=== PATIENT | female | born 1935 | race Caucasian/White ===

== ENCOUNTER 2016-09-02 09:38 | Inpatient (IN) | payer OTHER, MEDICARE ==
[2016-09-02] VITALS (16 sets, daily range): BP systolic 85–175; BP diastolic 50–87; PULSE 55–93; RESP 18–26; TEMP 98.3–98.5; O2SAT 92–100
[~2016-09-02] VITALS: Ht 167.6 cm; Wt 57.6 kg
[2016-09-02] MEDS ORDERED: SUCCINYLCHOLINE CHLORIDE 200 MG/10 ML VIAL ONE (09:46)
[2016-09-02] MEDS ORDERED: ETOMIDATE 20 MG/10 ML VIAL ONE (09:46)
[2016-09-02] MEDS ORDERED: SODIUM CHLOR 0.9% 1000 ML INJ 1,000 ML IV SCH (09:59)
[2016-09-02] MEDS ORDERED: DILT-64 PO (10:00)
[2016-09-02] MEDS ORDERED: LISI-515 PO (10:00)
[2016-09-02] MEDS ORDERED: TRAM50TA PO (10:00)
[2016-09-02] MEDS ORDERED: LEVO88TA2 PO (10:00)
[2016-09-02] MEDS ORDERED: SODIUM CHLORIDE 0.9% FLUSH 5 ML FLUSH IVF PRN (10:00)
[2016-09-02] MEDS ORDERED: PROPOFOL 1000 MG/100 ML INJ 100 ML ONE (10:01)
[2016-09-02] MEDS ORDERED: PIPERACIL-TAZO 4.5 GM PREMIX 100 ML IV ONE (10:15)
[2016-09-02] MEDS ORDERED: VANCOMYCIN INJ 1,000 MG in SODIUM CHLOR 0.9% 250 ML INJ 250 ML IV ONE (10:15)
[2016-09-02] MEDS ORDERED: SUCCINYLCHOLINE CHLORIDE 200 MG/10 ML VIAL IV PUSH ONE (10:15)
[2016-09-02] MEDS ORDERED: ETOMIDATE 20 MG/10 ML VIAL IV PUSH ONE (10:15)
[2016-09-02] MEDS ORDERED: SODIUM CHLOR 0.9% 1000 ML INJ 1,000 ML IV ONE (10:15)
[2016-09-02] MEDS ORDERED: PROPOFOL 200 MG/20 ML AMP IV ONE (10:15)
--- NOTE | 2016-09-02 10:21 | PD ---
HPI Chief Complaint: Respiratory Distress Time Seen by Provider: 09:59 Travel History International Travel<30 days: No Contact w/Intl Traveler<30days: No Traveled to known affect area: No History of Present Illness HPI 81-year-old female came to the emergency room brought by family with history of altered mental status and respiratory distress. Patient is unable to give any meaningful history given her distress. She was brought in emergently from triage. Oxygen saturation was 85-86% on room air. As per her daughter patient last Wednesday fell and broke her right arm. She was taken to the [facility] emergency room where x-ray showed fractured humerus. She was discharged home with an arm sling and to follow up with orthopedist. Daughter has been trying to get an orthopedic follow-up but since last night she noticed that her mother has been confused with almost incoherent speech. She also noticed that she was struggling to breathe. Upon asking the daughter said the last time she saw her mother to be at her baseline mental status was sometime after midnight to 2 AM. Here patient was mostly nonverbal and upon calling her name loudly would look at you and then soon after her head would flop back and eyes rolled back. She seemed to be struggling to breathe. [employer] Past Medical History Narrative Medical List of her past medical history is reviewed from the nursing note. Cancer: Yes (KIDNEY) COPD: Yes Hypertension: Yes Tetanus Vaccination: > 5 Years Past Surgical History Gynecologic Surgery: Yes (HYST) Social History Alcohol Use: No Tobacco Use: Yes Allergies-Medications (Allergen,Severity, Reaction): Coded Allergies: Sulfa (Verified Allergy, Severe, 09/02/16) Comments List for allergies reviewed from the nursing note. Reported Meds & Prescriptions Reported Meds & Active Scripts Active Reported Tramadol (Tramadol HCl) 50 Mg Tab 50 Mg PO Q4H PRN Levothyroxine (Levothyroxine Sodium) 88 Mcg Tab 88 Mcg PO DAILY Lisinopril 20 Mg Tab 20 Mg PO DAILY Diltiazem CD 24 HR 240 Mg Caper 240 Mg PO DAILY Narrative Medication List of her home medications reviewed from the nursing note. Review of Systems Except as stated in HPI: all other systems reviewed are Neg Physical Exam Narrative GENERAL: Poorly responsive, elderly and frail, severe respiratory distress SKIN: Warm and dry. Extensive ecchymosis on the right upper extremity with swelling, bruising on the left side of the face and the baptism HEAD: Atraumatic. Normocephalic. EYES: Pupils equal and round. No scleral icterus. No injection or drainage. ENT: No nasal bleeding or discharge. Dry mucous membrane and coated tongue. NECK: Trachea midline. raised JVD on sitting position CARDIOVASCULAR: Regular rate and rhythm. No murmur appreciated. RESPIRATORY: Accessory muscles use for respiration, decreased air entry bilaterally GASTROINTESTINAL: Abdomen soft, non-tender, nondistended. Hepatic and splenic margins not palpable. MUSCULOSKELETAL: No obvious deformities. No clubbing. No cyanosis. No edema. NEUROLOGICAL: Poorly responsive, GCS of 10, nonverbal PSYCHIATRIC: Very anxious Data Data Last Documented VS Vital Signs Date Time Temp Pulse Resp B/P Pulse Ox O2 Delivery O2 Flow Rate FiO2 09/02/16 11:40 97 50 09/02/16 11:03 71 18 127/78 09/02/16 10:20 98.5 Orders Etomidate Inj (Amidate Inj) (09/02/16 09:46) Succinylcholine Inj (Quelicin Inj) (09/02/16 09:46) Electrocardiogram (09/02/16 09:59) Alcohol (Ethanol) (09/02/16 09:59) Ammonia (09/02/16 09:59) Complete Blood Count With Diff (09/02/16 09:59) Comprehensive Metabolic Panel (09/02/16 09:59) Creatine Kinase (Cpk) (09/02/16 09:59) Drug Screen, Random Urine (09/02/16 09:59) Prothrombin Time / Inr (Pt) (09/02/16 09:59) Troponin I (09/02/16 09:59) Thyroid Stimulating Hormone (09/02/16 09:59) Lactic Acid Sepsis Protocol (09/02/16 09:59) Urinalysis - C+S If Indicated (09/02/16 09:59) Arterial Blood Gas (Abg) (09/02/16 09:59) Blood Culture (09/02/16 09:59) Chest, Single Ap (09/02/16 09:59) Ct Brain W/O Iv Contrast(Rout) (09/02/16 09:59) Blood Glucose (09/02/16 09:59) Ecg Monitoring (09/02/16 09:59) Iv Access Insert/Monitor (09/02/16 09:59) Oximetry (09/02/16 09:59) Sodium Chloride 0.9% Flush (Ns Flush) (09/02/16 10:00) Sodium Chlor 0.9% 1000 Ml Inj (Ns 1000 M (09/02/16 09:59) I-Stat Profile (09/02/16 09:59) Propofol 1000 Mg/100 Ml Inj (Diprivan 10 (09/02/16 10:01) Sodium Chlor 0.9% 1000 Ml Inj (Ns 1000 M (09/02/16 10:15) Succinylcholine Inj (Quelicin Inj) (09/02/16 10:15) Etomidate Inj (Amidate Inj) (09/02/16 10:15) Piperacil-Tazo 4.5 Gm Premix (Zosyn 4.5 (09/02/16 10:15) Vancomycin Inj (Vancomycin Inj) (09/02/16 10:15) Propofol 1000 Mg/100 Ml Inj (Diprivan 10 (09/02/16 10:15) ^ Infusion (09/02/16 10:01) RASS (09/02/16 10:01) Neurological Rass Scale JOYA.Q2H (09/02/16 10:01) Ct Pulmonary Angiogram (09/02/16 ) Urinary Catheter Insert/Apply (09/02/16 10:01) Freddy-Gastric Tube Insert/Mon (09/02/16 10:01) Restraints Non-Violent JOYA.Q3H (09/02/16 10:01) Propofol 200 Mg/20 Ml Inj (Diprivan 200 (09/02/16 10:15) Urine Culture (09/02/16 10:00) CKMB (09/02/16 10:00) CKMB% (09/02/16 10:00) Humerus (Min 2vws) (09/02/16 ) Elbow, Limited (Ap&Lat) (09/02/16 ) Midazolam Inj (Versed Inj) (09/02/16 11:45) Admit Order (Ed Use Only) (09/02/16 11:51) Labs Laboratory Tests Test 09/02/16 09/02/16 10:00 10:45 Bedside Hemoglobin 14.3 G/DL Bedside Hematocrit 42.0 % Prothrombin Time 10.3 SEC Prothromb Time International 0.9 RATIO Ratio Bedside Sodium 134 MMOL/L Sodium Level 134 MEQ/L Bedside Potassium 4.2 MMOL/L Potassium Level 4.2 MEQ/L Bedside Chloride 99 MMOL/L Chloride Level 101 MEQ/L Carbon Dioxide Level 24.3 MEQ/L Anion Gap 9 MEQ/L Bedside Blood Urea Nitrogen 13 MG/DL Blood Urea Nitrogen 12 MG/DL Creatinine 0.85 MG/DL Estimat Glomerular Filtration 64 ML/MIN Rate Bedside Glucose 109 MG/DL Random Glucose 104 MG/DL Lactic Acid Level 1.4 mmol/L Calcium Level 8.6 MG/DL Total Bilirubin 0.5 MG/DL Aspartate Amino Transf 19 U/L (AST/SGOT) Alanine Aminotransferase 20 U/L (ALT/SGPT) Alkaline Phosphatase 75 U/L Ammonia LESS THAN 10 MCMOL/L Total Creatine Kinase 201 U/L Creatine Kinase MB 1.2 NG/ML Creatine Kinase MB % 0.6 % Troponin I LESS THAN 0.02 NG/ML Total Protein 7.0 GM/DL Albumin 2.8 GM/DL Thyroid Stimulating Hormone 1.280 uIU/ML 3rd Gen Urine Opiates Screen NEG Urine Barbiturates Screen NEG Urine Amphetamines Screen NEG Urine Benzodiazepines Screen NEG Urine Cocaine Screen NEG Urine Cannabinoids Screen NEG Ethyl Alcohol Level LESS THAN 3 MG/DL White Blood Count 14.1 TH/MM3 Red Blood Count 4.63 MIL/MM3 Hemoglobin 13.6 GM/DL Hematocrit 40.9 % Mean Corpuscular Volume 88.4 FL Mean Corpuscular Hemoglobin 29.4 PG Mean Corpuscular Hemoglobin 33.2 % Concent Red Cell Distribution Width 14.7 % Platelet Count 404 TH/MM3 Mean Platelet Volume 7.1 FL Neutrophils (%) (Auto) 81.5 % Lymphocytes (%) (Auto) 12.2 % Monocytes (%) (Auto) 6.1 % Eosinophils (%) (Auto) 0.1 % Basophils (%) (Auto) 0.1 % Neutrophils # (Auto) 11.5 TH/MM3 Lymphocytes # (Auto) 1.7 TH/MM3 Monocytes # (Auto) 0.9 TH/MM3 Eosinophils # (Auto) 0.0 TH/MM3 Basophils # (Auto) 0.0 TH/MM3 CBC Comment DIFF FINAL Differential Comment Urine Color YELLOW Urine Turbidity CLOUDY Urine pH 6.0 Urine Specific Kerby 1.018 Urine Protein 100 mg/dL Urine Glucose (UA) NEG mg/dL Urine Ketones NEG mg/dL Urine Occult Blood MOD Urine Nitrite POS Urine Bilirubin NEG Urine Urobilinogen LESS THAN 2.0 MG/DL Urine Leukocyte Esterase SMALL Urine RBC 5 /hpf Urine WBC 59 /hpf Urine Squamous Epithelial 1 /hpf Cells Urine Bacteria MOD /hpf Urine Mucus FEW /lpf Microscopic Urinalysis Comment CATH-CULTURE IND Blood Gas Puncture Site LT BRACHIAL Blood Gas Patient Temperature 98.6 Blood Gas HCO3 20 mmol/L Blood Gas Base Excess -5.0 mmol/L Blood Gas Oxygen Saturation 96 % Arterial Blood pH 7.33 Arterial Blood Partial 39 mmHg Pressure CO2 Arterial Blood Partial 442 mmHG Pressure O2 Arterial Blood Oxygen Content 17.2 Vol % Arterial Blood 2.5 % Carboxyhemoglobin Arterial Blood Methemoglobin 1.8 % Blood Gas Hemoglobin 12.0 G/DL Oxygen Delivery Device VENTILATOR Blood Gas Ventilator Setting AC/R18/VT500/PEEP5 Blood Gas Inspired Oxygen 100 % MDM Medical Decision Making Medical Screen Exam Complete: Yes Emergency Medical Condition: Yes Medical Record Reviewed: Yes Interpretation(s) Twelve-lead EKG was reviewed by me. Normal sinus rhythm, left bundle branch block, left axis deviation, first-degree AV block. Heart rate of 60 bpm. Differential Diagnosis PE, congestive heart failure, pneumonia, intracranial bleed Narrative Course 11:21 AM soon after quickly assessing the patient it was realized by me that patient needed her airway to be protected since she was ventilating and oxygenating poorly. Also her GCS was suboptimal. Discussed this with the daughter as well as son who was present in the room and they agreed with intubation. After patient was intubated I ordered IV Zosyn and vancomycin to cover for possible sepsis. She was given 2 L of IV fluid bolus. Soon after being on sedation her blood pressure dropped significantly to 58 systolic. Propofol was stopped as sedation and with fluid pressure slowly started to come up. Blood test results of back and shows some leukocytosis. Urine is positive for UTI. I'm currently waiting for CT and chest x-ray. Blood gas was drawn and looks adequate from oxygenation standpoint. However there is slight metabolic acidosis. Patient obviously will require admission. As soon as the CT scans ordered resulted line palletizer will be called. 11:53 AM patient is currently in CT. Awaiting for the CT head and CT pulmonary angiogram to be done and resulted. X-ray of the chest show tubes in good position. Critical Care Narrative Aggregate critical care time was 60 minutes. Time to perform other separately billable procedures was not included in the critical care time. My time did not include minutes spent treating any other patients simultaneously or on activities that did not directly contribute to the patient's treatment. The services I provided to this patient were to treat and/or prevent clinically significant deterioration that could result in: Respiratory failure, altered mental status, sepsis, ventilator management I provided critical care services requiring my management, as noted below: Chart data review, documentation time, medication orders and management, vital sign assessments/reviewing monitor data, ordering and reviewing lab tests, ordering and interpreting/reviewing x-rays and diagnostic studies, care of the patient and discussion of the patient with the admitting physicians. Procedures Procedure Narrative After the risks and benefits were discussed the following procedure was performed: INTUBATION: The patient was put in optimal position for the procedure. Rapid sequence intubation was initiated by me using 20 milligrams of etomidate IV and 100 milligrams of succinylcholine IV. The patient was intubated with a 7.5 cuffed endotracheal tube. Tube placement was confirmed by visualization of the tube and balloon passing through the cords, capnometry and subsequent chest x-ray. Breath sounds were equal and well aerated bilaterally postintubation. No breath sounds over stomach. Patient tolerated procedure well. Right EJ access: Patient's blood pressure dropped and there wasn't enough IV access. I put an 18-gauge Angiocath into the left EJ after the skin was prepped with alcohol and patient was on Trendelenburg position. It was successful on first attempt. EKG Prior to Arrival: No Physician Communication Physician Communication Dr. Louise Diagnosis Primary Impression: Altered mental status Qualified Code: R41.0 - Delirium Additional Impressions: Sepsis Qualified Code: A41.9 - Sepsis, due to unspecified organism UTI (urinary tract infection) Qualified Code: N39.0 - Urinary tract infection without hematuria, site unspecified Humerus fracture Qualified Code: S42.301A - Closed fracture of shaft of right humerus, unspecified fracture morphology, initial encounter Respiratory failure Qualified Code: J96.01 - Acute respiratory failure with hypoxia Admitting Information Admitting Physician Requests: Deven Yip MD Sep 02, 2016 10:21
[2016-09-02 10:27] LABS: I-STAT POTASSIUM 4.2 MMOL/L (3.5-4.9); I-STAT SODIUM 134 MMOL/L (138-146)
[2016-09-02 10:30] LABS: AUTOMATED NEUTROPHIL # 11.5 TH/MM3 (1.8-7.7); BASOPHIL % 0.1 % (0.0-2.0); EOSINOPHIL % 0.1 % (0.0-4.0); HEMATOCRIT 40.9 % (35.0-46.0); HEMO FLAGS DIFF FINAL; LYMPH % 12.2 % (9.0-44.0); LYMPHOCYTE # 1.7 TH/MM3 (1.0-4.8); MEAN CELL VOLUME 88.4 FL (80.0-100.0); MEAN CORPUSCULAR HEMOGLOBIN 29.4 PG (27.0-34.0); MEAN CORPUSCULAR HGB CONC 33.2 % (32.0-36.0); MONO % 6.1 % (0.0-8.0); NEUT % 81.5 % (16.0-70.0); PLATELET COUNT 404 TH/MM3 (150-450); RED BLOOD COUNT 4.63 MIL/MM3 (4.00-5.30); RED CELL DISTRIBUTION WIDTH 14.7 % (11.6-17.2); WHITE BLOOD COUNT 14.1 TH/MM3 (4.0-11.0)
[2016-09-02 10:39] LABS: BACTERIA, URINE MOD /hpf; BLOOD, URINE MOD (NEG); COMMENT (UR) CATH-CULTURE IND; CULTURE IF INDICATED CATH CULTURE IND; GLUCOSE,URINE NEG (NEG); KETONE, URINE NEG (NEG); MUCUS URINE FEW /lpf (OCC); SQUAMOUS EPITHELIAL CELL URINE 1 /hpf (0-5); URINE COLOR YELLOW (YELLW/STRAW)
[2016-09-02 10:40] LABS: NITRITE,URINE POS (NEG)
[2016-09-02 10:42] LABS: ALT (GPT) 20 U/L (10-53); ANION GAP 9 MEQ/L (5-15); AST (GOT) 19 U/L (15-37); BICARBONATE 24.3 MEQ/L (21.0-32.0); BLOOD UREA NITROGEN 12 MG/DL (7-18); CHLORIDE 101 MEQ/L (98-107); GLOMERULAR FILTRATION RATE 64 ML/MIN (>89); POTASSIUM 4.2 MEQ/L (3.5-5.1); SODIUM (NA) 134 MEQ/L (136-145)
[2016-09-02 10:43] LABS: INTERNATIONAL NORMALIZED RATIO 0.9 RATIO; PROTHROMBIN TIME - PATIENT 10.3 SEC (9.8-11.6)
[2016-09-02 10:52] LABS: ALKALINE PHOSPHATASE 75 U/L (45-117); CREATINE KINASE 201 U/L (26-192); TOTAL BILIRUBIN ADULT 0.5 MG/DL (0.2-1.0)
[2016-09-02 10:56] LABS: AMPHETAMINE, URINE NEG (NEG); BARBITURATES, URINE NEG (NEG); COCAINE, URINE NEG (NEG)
[2016-09-02 11:04] LABS: CKMB 1.2 NG/ML (0.5-3.6)
[2016-09-02 11:11] LABS: BLOOD GAS CARBOXYHEMOGLOBIN 2.5 % (0-4); BLOOD GAS HCO3 20 mmol/L (22-26); BLOOD GAS METHEMOGLOBIN 1.8 % (0-2); BLOOD GAS O2 HGB SATURATION 96 % (90-100); BLOOD GAS OXYGEN CONTENT 17.2 Vol % (12.0-20.0); BLOOD GAS PCO2 39 mmHg (38-42); BLOOD GAS PO2 442 mmHG (61-120); CRITICAL VALUE NO; OXYGEN DEVICE VENTILATOR; TEMP CORR TO 98.6
[2016-09-02] MEDS: PROPOFOL 1000 MG/100 ML INJ 100 ML IV SCH ×2 (11:11→19:15)
[2016-09-02 11:12] LABS: DRAW SITE LT BRACHIAL; FIO2 100 %; NUMBER OF ARTERIAL PUNCTURES 1; ULNAR PULSE Y; VENT SETTINGS AC/R18/VT500/PEEP5
[2016-09-02 11:14] LABS: STAT YES
--- NOTE | 2016-09-02 11:34 | RADRPT ---
EXAM DATE/TIME: 09/02/2016 10:57 [facility] COMPARISON: No previous studies available for comparison. INDICATIONS : Short of breath and ET tube placement. MEDICAL HISTORY : Fx arm. SURGICAL HISTORY : None. ENCOUNTER: Initial ACUITY: 1 day PAIN SCORE: Non-responsive. LOCATION: Bilateral chest FINDINGS: A single view of the chest demonstrates the lungs to be symmetrically aerated without evidence of mas s, infiltrate or effusion. There is an endotracheal tube replaced which appears to be in good positio n. There is NG tube in stomach. There is hyperaeration of both lung miller. No definite pneumothorax is seen. The cardiomediastinal contours are unremarkable. Osseous structures are intact. CONCLUSION: 1. ET tube and NG tube in good position. 2. Hyperaeration of both lung miller with no acute pulmonary infiltrates. 3. No definite pneumothorax. Mushtaq Hernandez MD on September 02, 2016 at 11:31 Board Certified Radiologist. This report was verified electronically.
[2016-09-02] MEDS ORDERED: MIDAZOLAM HCL 2 MG/2 ML VIAL IV PUSH ONE (11:45)
[2016-09-02] MEDS ORDERED: IOHEXOL 350 MG/ML 10 ML VIAL (for RAD DIAG) IV ONE (12:15)
--- NOTE | 2016-09-02 12:17 | RADRPT ---
EXAM DATE/TIME: 09/02/2016 12:01 [facility] COMPARISON: No previous studies available for comparison. INDICATIONS : Altered mental status. RADIATION DOSE: 52.44 CTDIvol (mGy) MEDICAL HISTORY : Chronic obstructive pulmonary disease. Renal cell carcinoma. Hypertension. SURGICAL HISTORY : Hysterectomy. ENCOUNTER: Initial ACUITY: 1 day PAIN SCALE: Non-responsive LOCATION: cranial TECHNIQUE: Multiple contiguous axial images were obtained of the head. Using automated exposure control and adj ustment of the mA and/or kV according to patient size, radiation dose was kept as low as reasonably a chievable to obtain optimal diagnostic quality images. FINDINGS: CEREBRUM: The ventricles are normal for age. There is bilateral cortical atrophy and chronic white matter ramírez ges bilaterally characteristic for patient's age. No evidence of midline shift, mass lesion, hemorrha ge or acute infarction. No extra-axial fluid collections are seen. POSTERIOR FOSSA: The cerebellum and brainstem are intact. The 4th ventricle is midline. The cerebellopontine angle i s unremarkable. EXTRACRANIAL: The visualized portion of the orbits is intact. There is chronic sinus disease in the right maxillary sinus and ethmoid sinuses bilaterally. SKULL: The calvaria is intact. No evidence of skull fracture. CONCLUSION: 1. No focal or acute intracranial hemorrhage. 2. Bilateral cortical atrophy and chronic white matter changes. 3. Chronic sinus disease. Mushtaq Hernandez MD on September 02, 2016 at 12:14 Board Certified Radiologist. This report was verified electronically.
--- NOTE | 2016-09-02 12:29 | RADRPT ---
EXAM DATE/TIME: 09/02/2016 12:01 [facility] COMPARISON: No previous studies available for comparison. INDICATIONS : Respiratory distress. IV CONTRAST: 70 cc Omnipaque 350 (iohexol) IV RADIATION DOSE: 23.38 CTDIvol (mGy) MEDICAL HISTORY : Renal cell carcinoma. Hypertension. Chronic obstructive pulmonary disease. SURGICAL HISTORY : Hysterectomy. ENCOUNTER: Initial ACUITY: 1 day PAIN SCALE: Non-responsive LOCATION: chest TECHNIQUE: Volumetric scanning of the chest was performed using a pulmonary embolism protocol MIP images were re constructed. Using automated exposure control and adjustment of the mA and/or kV according to patien t size, radiation dose was kept as low as reasonably achievable to obtain optimal diagnostic quality images. FINDINGS: PULMONARY ARTERIES: No filling defects are seen in the pulmonary arteries through the segmental level. LUNGS: The lungs are hyperaerated bilaterally. A few small scattered interstitial infiltrates are seen in th e right lung. Otherwise, the lungs are grossly clear. PLEURAE: There is no pleural thickening or pleural effusion. MEDIASTINUM: There is good visualization of the great vessels of the middle mediastinum. No evidence of mediastin al or hilar adenopathy/mass. MUSCULOSKELETAL: Within normal limits for patient age. MISCELLANEOUS: The visualized upper abdominal organs demonstrate no acute abnormality. Tiny stone in the left kidney nonobstructing. CONCLUSION: 1. No evidence of PE. 2. Hyperaeration of the lung miller suggestive of COPD. 3. A few small scattered interstitial infiltrates in the right lung. Mushtaq Hernandez MD on September 02, 2016 at 12:23 Board Certified Radiologist. This report was verified electronically.
--- NOTE | 2016-09-02 12:51 | RADRPT ---
EXAM DATE/TIME: 09/02/2016 12:29 [facility] COMPARISON: No previous studies available for comparison. INDICATIONS : Right elbow pain due to fall 3 day ago. MEDICAL HISTORY : Chronic obstructive pulmonary disease. Renal cell carcinoma. Hypertension. SURGICAL HISTORY : Hysterectomy. ENCOUNTER: Initial ACUITY: 1 day PAIN SCORE: Non-responsive. LOCATION: Right Elbow. FINDINGS: Two view examination of the right elbow demonstrates no , joint effusion, fracture or dislocation. B danette mineralization is normal. Suggestion of soft tissue swelling or prominent soft tissues distal arm and olecranon region CONCLUSION: No acute bony injury Richie Mtz MD on September 02, 2016 at 12:49 Board Certified Radiologist. This report was verified electronically.
--- NOTE | 2016-09-02 12:54 | RADRPT ---
EXAM DATE/TIME: 09/02/2016 12:25 [facility] COMPARISON: CT PULMONARY ANGIOGRAM, September 02, 2016, 12:01. CHEST SINGLE AP, September 02, 2016, 10:57. INDICATIONS : Right upper arm pain. MEDICAL HISTORY : Chronic obstructive pulmonary disease. Renal cell carcinoma. Hypertension. Right humerus fractur. SURGICAL HISTORY : Hysterectomy. ENCOUNTER: Initial ACUITY: 1 day PAIN SCORE: Non-responsive. LOCATION: Right Humerus. FINDINGS: There is a fracture of subcapital and extending into the humeral head and comminuted without dislocat ion. Remainder of exam negative CONCLUSION: Fracture subcapital and humeral head. Richie Mtz MD on September 02, 2016 at 12:50 Board Certified Radiologist. This report was verified electronically.
[2016-09-02] MEDS ORDERED: MISCELLANEOUS NURSING INFORMATION XX SCH (13:00)
[2016-09-02] MEDS: INSULIN NovoLIN REGULAR SUPPLEMENTAL SCALE SQ SCH ×3 (13:00→23:43)
[2016-09-02] MEDS ORDERED: GLUCAGON 1 MG/ML VIAL OTHER PRN (13:00)
[2016-09-02] MEDS ORDERED: CHLORHEXIDINE GLUCONATE 2 % 1 PACK (2 CLOTHS) TOP PRN (13:00)
[2016-09-02] MEDS ORDERED: DEXTROSE 50% IN WATER 50 ML VIAL(D50) IV PUSH PRN (13:00)
--- NOTE | 2016-09-02 13:43 | MH ---
cc: MACO ZIEGLER M.D. DATE OF ADMISSION: 09/02/2016 DATE OF : 1935 HISTORY OF PRESENT ILLNESS The patient is an 81-year-old female with a past medical history of COPD, active smoker, hypertension and hypothyroidism. She presented to [facility] ED with her family for altered mental status and respiratory distress. According to the patient's daughter she fell last Wednesday and broke her right arm. She was taken to [facility] ED and was found to have a right humerus fracture. She was discharged home with an arm sling and advised to follow-up with an orthopedic surgeon. In addition the patient was taking tramadol one tablet every four hours as needed for pain for the past three days. The patient has been combative and agitated at home according to the daughter and when she arrived to the ED she was found to have an O2 saturation in the 80s on room in triage. She was intubated and placed on full mechanical ventilation. The patient was given etomidate and succinylcholine for intubation. A chest x-ray post intubation showed ET tube above the christianne, hyperaeration of both lungs with no acute pulmonary infiltrates. She also underwent a CT angiogram of the chest which showed no evidence of PE, however, it showed a few small scattered interstitial infiltrates in the right lung. The patient also had CT scan of the brain which showed no focal or acute intracranial hemorrhage. She received 2 liters of crystalloids in the ED in addition to vancomycin and Zosyn. Her laboratory data is significant for leukocytosis with a WBC of 14.1, however, the patient is afebrile. Lactic acid measured at 1.4 and her urinalysis was compatible with a UTI. She had 59 wbc's with moderate bacteria, positive nitrite and small leukocyte esterase. X-ray of her right humerus showed a subcapital and humeral head fracture. When seen the patient is sedated with Diprivan and on full mechanical ventilation. Current blood pressure is 119/54 with a pulse of 59. ABG post intubation showed a pH of 7.33, CO2 39, PAO2 442, bicarb 20, saturation 96% on assist control ventilation with a respiratory rate of 18, tidal volume 500, PEEP of 5, FIO2 100%. PAST MEDICAL HISTORY 1. COPD. 2. Hypertension. 3. Hypothyroidism. PAST SURGICAL HISTORY Previous hysterectomy. SOCIAL HISTORY Active smoker, non-drinker. Lives with her daughter. FAMILY HISTORY Noncontributory. ALLERGIES SULFA. MEDICATIONS Reported medications: 1. Tramadol. 2. Levothyroxine. 3. Lisinopril. 4. Diltiazem. REVIEW OF SYSTEMS As per HPI. The rest of the review of systems is limited as the patient is intubated. PHYSICAL EXAMINATION GENERAL: An 81-year-old female, intubated for respiratory failure. VITAL SIGNS: Temperature 98.5, pulse 59, blood pressure 119/54, sats of 97%. Vent setting - assist control, rate of 18, tidal volume 500, PEEP of 5, FIO2 50%. HEENT: Atraumatic, normocephalic. Pupils equal and reactive to light and accommodation. Extraocular muscles intact. Conjunctiva pink. Non-icteric sclera. Oral mucosa within normal. Orally intubated. NECK: Supple. No JVD, adenopathy or thyromegaly. Trachea in the midline. CARDIOVASCULAR: Regular rate and rhythm. Normal S1, S2. No murmurs, rubs or gallops noted. PULMONARY: Bilateral equal entry diminished. No crackles or wheezing. ABDOMEN: Soft, nontender, no distension. Positive bowel sounds. EXTREMITIES: No cyanosis, clubbing or edema. SKIN: Extensive ecchymosis on the right upper extremity with edema and bruising on the left side of her face and jew area. NEUROLOGIC: Intubated and sedated with Diprivan. LABORATORY DATA Sodium 134, potassium 4.2, chloride 101, CO2 24, BUN 12, creatinine 0.85, glucose 104. Lactic acid 1.4. Total CK 201. Troponin less than 0.02. Ammonia less than 10. LFTs within normal. WBC 14.1, hemoglobin 13.6, hematocrit 40, platelet count 404. INR 0.9, PT 10.3. Urine drug screen negative for opiates, amphetamines, barbiturates. Alcohol level less than 3. Urinalysis is compatible with a UTI. RADIOGRAPHIC STUDIES A chest x-ray post intubation showed ET tube above the christianne, COPD changes, no obvious pulmonary infiltrates. CT angiogram of the chest showed no evidence of PE, small interstitial infiltrates. CT scan of the brain showed no acute intracranial findings. Humerus x-ray showed subcapital and humeral head fracture. IMPRESSION 1. Acute respiratory failure, requiring intubation. 2. Altered mental status. 3. Urinary tract infection. 4. Leukocytosis. 5. Right humerus fracture. 6. Status post fall. 7. Hypothyroidism. 8. COPD. 9. Hypertension. PLAN/RECOMMENDATIONS 1. Will place on fentanyl infusion for sedation and analgesia while intubated. Monitor neuro status closely. Neuro-checks per ICU protocol. CT scan of the brain showed no evidence of any acute intracranial findings. 2. Continue with vent support and maintain sats above 92%. 3. Bronchodilators in the form of DuoNeb q.6h. Will initiate ICU vent bundle and start on Solu-Medrol 40 mg IV q.8h. 4. Monitor heart rate and blood pressure closely and maintain MAP greater than 65 mmHg. Lactic acid level measured at 1.4. Hold antihypertensive meds. 5. Monitor renal function, I's and O's, and electrolyte replacement per protocol. Place on IV fluids in the form of D5 NS at 84 mL an hour. 6. Protonix 40 mg IV daily for GI prophylaxis. Will start nutrition support within the next 24 hours if remains intubated. 7. Continue with antibiotics in the form of Zosyn and monitor for signs of infection which include fever and WBC. Follow-up on blood and urine cultures. Will obtain a sputum culture with Gram stain. Of note the patient received one dose of vancomycin and Zosyn in the ED. Monitor CBC. 8. Consult orthopedic surgery regarding the right humerus fracture. 9. Place on sliding scale insulin with Accu-Cheks q.6h. for glycemic control as the patient will be on IV steroids. 10. Continue with Synthroid 88 mcg daily, her home dose. TSH measured at 1.28. 11. GI prophylaxis with Protonix 40 mg daily and DVT prophylaxis with SCDs. Will hold off on chemical anticoagulation prophylaxis for now given the extensive ecchymosis of her right upper extremity. 12. Further recommendations will be based on the hospital course. Critical care time 60 minutes excluding procedures. MD PATTY Fulton/RAINA /1:07 PM /1:24 PM
[2016-09-02] MEDS: DEXT 5%-NACL 0.9% 1000 ML INJ 1,000 ML IV SCH ×2 (13:51→23:43)
[2016-09-02] MEDS: PANTOPRAZOLE SODIUM 40 MG VIAL IV SCH (13:51)
[2016-09-02] MEDS: fentaNYL DRIP 250 ML IV SCH (14:02)
[2016-09-02] MEDS: RESP: ALBUTEROL 2.5 MG/IPRATROPIUM 0.5 MG NEB (SCH) INH ×3 (14:02→20:29)
[2016-09-02] MEDS: methylPREDNISolone SOD SUCC 40 MG/1 ML VIAL IV PUSH SCH ×2 (14:09→22:52)
[2016-09-02] MEDS: PIPERACIL-TAZO 3.375 GM PREMIX 50 ML IV SCH ×2 (18:26→22:52)
--- NOTE | 2016-09-02 23:00 | EKG ---
Date Performed: 09/02/2016 Time Performed: 10:54:39 PTAGE: 81 years EKG: Sinus rhythm WITH FIRST DEGREE AV BLOCK MARKED LEFT AXIS DEVIATION INTRAVENTRICULAR CONDUCTION DELAY POSSIBLE ANT ERIOR MYOCARDIAL INFARCTION ABNORMAL ECG NO PREVIOUS TRACING DOCTOR: Jo Forrest Interpretating Date/Time 09/02/2016 22:59:18
[2016-09-02] MEDS: CHLORHEXIDINE GLUCONATE 2 % 1 PACK (2 CLOTHS) TOP SCH (23:43)
[2016-09-03] VITALS (19 sets, daily range): BP systolic 96–144; BP diastolic 48–65; PULSE 47–78; RESP 18–19; TEMP 96.8–99; O2SAT 95–100
[2016-09-03] MEDS: RESP: ALBUTEROL 2.5 MG/IPRATROPIUM 0.5 MG NEB (SCH) INH ×4 (03:33→20:24)
[2016-09-03] MEDS: LORazepam 2 MG/ML VIAL IV PRN (03:44)
[2016-09-03 04:07] LABS: AUTOMATED NEUTROPHIL # 11.6 TH/MM3 (1.8-7.7); BASOPHIL % 0.1 % (0.0-2.0); HEMATOCRIT 34.5 % (35.0-46.0); HEMO FLAGS DIFF FINAL; LYMPH % 7.6 % (9.0-44.0); MEAN CELL VOLUME 88.7 FL (80.0-100.0); MEAN CORPUSCULAR HEMOGLOBIN 28.5 PG (27.0-34.0); MEAN CORPUSCULAR HGB CONC 32.1 % (32.0-36.0); MONO % 2.4 % (0.0-8.0); NEUT % 89.9 % (16.0-70.0); PLATELET COUNT 338 TH/MM3 (150-450); RED BLOOD COUNT 3.89 MIL/MM3 (4.00-5.30); RED CELL DISTRIBUTION WIDTH 14.7 % (11.6-17.2); WHITE BLOOD COUNT 12.9 TH/MM3 (4.0-11.0)
[2016-09-03 04:35] LABS: BICARBONATE 22.3 MEQ/L (21.0-32.0); MAGNESIUM 1.8 MG/DL (1.5-2.5)
[2016-09-03] MEDS: PIPERACIL-TAZO 3.375 GM PREMIX 50 ML IV SCH ×4 (05:13→21:41)
[2016-09-03] MEDS: methylPREDNISolone SOD SUCC 40 MG/1 ML VIAL IV PUSH SCH ×3 (05:13→21:41)
[2016-09-03] MEDS: LEVOTHYROXINE SODIUM 88 MCG TAB PO SCH (05:13)
[2016-09-03] MEDS: INSULIN NovoLIN REGULAR SUPPLEMENTAL SCALE SQ SCH ×3 (05:14→17:25)
[2016-09-03] MEDS: PANTOPRAZOLE SODIUM 40 MG VIAL IV SCH (08:09)
--- NOTE | 2016-09-03 08:34 | HHI.CCPN ---
Subjective Remarks/Hospital Course The patient is an 81-year-old female with a past medical history of COPD, active smoker, hypertension and hypothyroidism. She presented to [facility] ED with her family for altered mental status and respiratory distress. According to the patient's daughter she fell last Wednesday and broke her right arm. She was taken to [facility] ED and was found to have a right humerus fracture. She was discharged home with an arm sling and advised to follow-up with an orthopedic surgeon. In addition the patient was taking tramadol one tablet every four hours as needed for pain for the past three days. The patient has been combative and agitated at home according to the daughter and when she arrived to the ED she was found to have an O2 saturation in the 80s on room in triage. She was intubated and placed on full mechanical ventilation. The patient was given etomidate and succinylcholine for intubation. A chest x-ray post intubation showed ET tube above the christianne, hyperaeration of both lungs with no acute pulmonary infiltrates. She also underwent a CT angiogram of the chest which showed no evidence of PE, however, it showed a few small scattered interstitial infiltrates in the right lung. The patient also had CT scan of the brain which showed no focal or acute intracranial hemorrhage. She received 2 liters of crystalloids in the ED in addition to vancomycin and Zosyn. Her laboratory data is significant for leukocytosis with a WBC of 14.1, however, the patient is afebrile. Lactic acid measured at 1.4 and her urinalysis was compatible with a UTI. She had 59 wbc's with moderate bacteria, positive nitrite and small leukocyte esterase. X-ray of her right humerus showed a subcapital and humeral head fracture. When seen the patient is sedated with Diprivan and on full mechanical ventilation. Current blood pressure is 119 /54 with a pulse of 59. ABG post intubation showed a pH of 7.33, CO2 39, PAO2 442, bicarb 20, saturation 96% on assist control ventilation with a respiratory rate of 18, tidal volume 500, PEEP of 5, FIO2 100%. 09/03 No acute events overnight. Sedated with Fentanyl and intubated. Objective Vital Signs Date Time Temp Pulse Resp B/P Pulse Ox O2 Delivery O2 Flow Rate FiO2 09/03/16 06:00 63 12/29/16 04:09 100 45 09/03/16 04:00 99.0 18 107/53 09/02/16 12:50 Ventilator Intake and Output 09/02/16 09/02/16 09/03/16 08:00 16:00 00:00 Intake Total 2000 ml 818 ml Output Total 300 ml Balance 2000 ml 518 ml Result Diagram: 09/03/16 0340 09/03/16 0340 Other Results Laboratory Tests Test 09/02/16 09/02/16 09/02/16 09/03/16 10:00 10:45 19:40 03:40 White Blood Count 14.1 TH/MM3 12.9 TH/MM3 Red Blood Count 4.63 MIL/MM3 3.89 MIL/MM3 Hemoglobin 13.6 GM/DL 11.1 GM/DL Bedside Hemoglobin 14.3 G/DL Hematocrit 40.9 % 34.5 % Bedside Hematocrit 42.0 % Mean Corpuscular Volume 88.4 FL 88.7 FL Mean Corpuscular Hemoglobin 29.4 PG 28.5 PG Mean Corpuscular Hemoglobin 33.2 % 32.1 % Concent Red Cell Distribution Width 14.7 % 14.7 % Platelet Count 404 TH/MM3 338 TH/MM3 Mean Platelet Volume 7.1 FL 7.0 FL Neutrophils (%) (Auto) 81.5 % 89.9 % Lymphocytes (%) (Auto) 12.2 % 7.6 % Monocytes (%) (Auto) 6.1 % 2.4 % Eosinophils (%) (Auto) 0.1 % 0.0 % Basophils (%) (Auto) 0.1 % 0.1 % Neutrophils # (Auto) 11.5 TH/MM3 11.6 TH/MM3 Lymphocytes # (Auto) 1.7 TH/MM3 1.0 TH/MM3 Monocytes # (Auto) 0.9 TH/MM3 0.3 TH/MM3 Eosinophils # (Auto) 0.0 TH/MM3 0.0 TH/MM3 Basophils # (Auto) 0.0 TH/MM3 0.0 TH/MM3 CBC Comment DIFF FINAL DIFF FINAL Differential Comment Prothrombin Time 10.3 SEC Prothromb Time International 0.9 RATIO Ratio Urine Color YELLOW Urine Turbidity CLOUDY Urine pH 6.0 Urine Specific [place] 1.018 Urine Protein 100 mg/dL Urine Glucose (UA) NEG mg/dL Urine Ketones NEG mg/dL Urine Occult Blood MOD Urine Nitrite POS Urine Bilirubin NEG Urine Urobilinogen LESS THAN 2.0 MG/DL Urine Leukocyte Esterase SMALL Urine RBC 5 /hpf Urine WBC 59 /hpf Urine Squamous Epithelial 1 /hpf Cells Urine Bacteria MOD /hpf Urine Mucus FEW /lpf Microscopic Urinalysis Comment CATH-CULTURE IND Bedside Sodium 134 MMOL/L Sodium Level 134 MEQ/L 139 MEQ/L Bedside Potassium 4.2 MMOL/L Potassium Level 4.2 MEQ/L 4.0 MEQ/L Bedside Chloride 99 MMOL/L Chloride Level 101 MEQ/L 108 MEQ/L Carbon Dioxide Level 24.3 MEQ/L 22.3 MEQ/L Anion Gap 9 MEQ/L 9 MEQ/L Bedside Blood Urea Nitrogen 13 MG/DL Blood Urea Nitrogen 12 MG/DL 14 MG/DL Creatinine 0.85 MG/DL 0.92 MG/DL Estimat Glomerular Filtration 64 ML/MIN 58 ML/MIN Rate Bedside Glucose 109 MG/DL Random Glucose 104 MG/DL 166 MG/DL Lactic Acid Level 1.4 mmol/L Calcium Level 8.6 MG/DL 7.6 MG/DL Total Bilirubin 0.5 MG/DL Aspartate Amino Transf 19 U/L (AST/SGOT) Alanine Aminotransferase 20 U/L (ALT/SGPT) Alkaline Phosphatase 75 U/L Ammonia LESS THAN 10 MCMOL/L Total Creatine Kinase 201 U/L Creatine Kinase MB 1.2 NG/ML Creatine Kinase MB % 0.6 % Troponin I LESS THAN 0.02 NG/ML Total Protein 7.0 GM/DL Albumin 2.8 GM/DL Thyroid Stimulating Hormone 1.280 uIU/ML 3rd Gen Urine Opiates Screen NEG Urine Barbiturates Screen NEG Urine Amphetamines Screen NEG Urine Benzodiazepines Screen NEG Urine Cocaine Screen NEG Urine Cannabinoids Screen NEG Ethyl Alcohol Level LESS THAN 3 MG/DL Blood Gas Puncture Site LT BRACHIAL Blood Gas Patient Temperature 98.6 Blood Gas HCO3 20 mmol/L Blood Gas Base Excess -5.0 mmol/L Blood Gas Oxygen Saturation 96 % Arterial Blood pH 7.33 Arterial Blood Partial 39 mmHg Pressure CO2 Arterial Blood Partial 442 mmHG Pressure O2 Arterial Blood Oxygen Content 17.2 Vol % Arterial Blood 2.5 % Carboxyhemoglobin Arterial Blood Methemoglobin 1.8 % Blood Gas Hemoglobin 12.0 G/DL Oxygen Delivery Device VENTILATOR Blood Gas Ventilator Setting AC/R18/VT500/[id number] Blood Gas Inspired Oxygen 100 % Nasal Screen MRSA (PCR) NEGATIVE Phosphorus Level 2.3 MG/DL Magnesium Level 1.8 MG/DL Imaging Last Impressions Head CT 09/02/16 0959 Signed Impressions: Service Date/Time: Friday, September 02, 2016 12:01 - CONCLUSION: 1. No focal or acute intracranial hemorrhage. 2. Bilateral cortical atrophy and chronic white matter changes. 3. Chronic sinus disease. Mushtaq Hernandez MD Chest X-Ray 09/02/16 0959 Signed Impressions: Service Date/Time: Friday, September 02, 2016 10:57 - CONCLUSION: 1. ET tube and NG tube in good position. 2. Hyperaeration of both lung miller with no acute pulmonary infiltrates. 3. No definite pneumothorax. Mushtaq Hernandez MD Humerus X-Ray 09/02/16 0000 Signed Impressions: Service Date/Time: Friday, September 02, 2016 12:25 - CONCLUSION: Fracture subcapital and humeral head. Richie Mtz MD Elbow X-Ray 09/02/16 0000 Signed Impressions: Service Date/Time: Friday, September 02, 2016 12:29 - CONCLUSION: No acute bony injury Richie Mtz MD CT Angiography 09/02/16 0000 Signed Impressions: Service Date/Time: Friday, September 02, 2016 12:01 - CONCLUSION: 1. No evidence of PE. 2. Hyperaeration of the lung miller suggestive of COPD. 3. A few small scattered interstitial infiltrates in the right lung. Mushtaq Hernandez MD Objective Remarks GENERAL: Patient is 81 yo intubated and sedated. SKIN: Warm and dry. HEAD: Normocephalic. EYES: No scleral icterus. No injection or drainage. NECK: Supple, trachea midline. No JVD or lymphadenopathy. Orally intubated. CARDIOVASCULAR: Regular rate and rhythm without murmurs, gallops, or rubs. RESPIRATORY: Breath sounds equal bilaterally. No accessory muscle use. GASTROINTESTINAL: Abdomen soft, non-tender, nondistended. MUSCULOSKELETAL: No cyanosis, or edema. Neuro: Sedated. A/P Assessment and Plan 1. VDRF 2. Altered mental status. 3. Urinary tract infection. 4. Leukocytosis. 5. Right humerus fracture. 6. Status post fall. 7. Hypothyroidism. 8. COPD. 9. Hypertension. PLAN Neuro: On fentanyl infusion for sedation and analgesia while intubated. Daily sedation vacation. Monitor neuro status closely. CT brain showed no evidence of any acute intracranial findings. Pulm: Continue with vent support and maintain sats above 92%. Bronchodilators, Solu-Medrol 40 mg IV q.8h. ICU vent bundle, start CPAP trials as dorie CV: Monitor HR and BP and maintain MAP> 65 mmHg. Lactic acid level measured at 1.4. : Monitor renal function, I's and O's, and electrolyte replacement per protocol. Will need phos replacement today. d/c IVF GI: On Protonix 40 mg IV daily for GI prophylaxis. Start TF if remains intubated today. ID: Continue with abx(Zosyn) and monitor for signs of infection( fever and WBC) . WBC trending down. Heme: Monitor CBC. [place]: Orthopedic surgery consulted regarding right humerus fracture. Endo: SSI with Accu-Cheks q.6h. for glycemic control Continue with Synthroid 88 mcg daily. TSH: 1.28. GI prophylaxis with Protonix 40 mg daily and DVT prophylaxis with SCDs. Not on chemical anticoagulation prophylaxis for now given extensive ecchymosis of her right upper extremity. CCT 30 mins Karthik Cervantes MD Sep 03, 2016 08:33
[2016-09-03] MEDS ORDERED: MAGNESIUM SULFATE INJ 4 GM in SODIUM CHLORIDE 0.9% INJ 92 ML IV PRN (08:45)
[2016-09-03] MEDS ORDERED: POTASSIUM CHLOR 40 MEQ PREMIX 100 ML IV PRN ×2 (08:45)
[2016-09-03] MEDS ORDERED: SODIUM PHOSPHATE INJ 30 MMOL in SODIUM CHLOR 0.9% 250 ML INJ 240 ML IV PRN (08:45)
[2016-09-03] MEDS ORDERED: POTASSIUM PHOSPHATE MONOBASIC 500 MG TAB PO PRN (08:45)
[2016-09-03] MEDS ORDERED: POTASSIUM CHLOR 20 MEQ PREMIX 100 ML IV PRN (08:45)
[2016-09-03] MEDS ORDERED: POTASSIUM PHOSPHATE INJ 30 MMOL in SODIUM CHLOR 0.9% 250 ML INJ 250 ML IV PRN (08:45)
[2016-09-03] MEDS ORDERED: POTASSIUM CL 40 MEQ/30 ML LIQ UDC PO/TUBE PRN ×2 (08:45)
[2016-09-03] MEDS ORDERED: MAGNESIUM SULFATE INJ 2 GM in SODIUM CHLORIDE 0.9% INJ 96 ML IV PRN (08:45)
[2016-09-03] MEDS ORDERED: MAGNESIUM OXIDE 400 MG TAB PO PRN (08:45)
[2016-09-03] MEDS ORDERED: POTASSIUM PHOSPHATE MONOBASIC 500 MG TAB PO/TUBE PRN (08:45)
[2016-09-03 11:32] LABS: BLOOD GAS BASE EXCESS -6.6 mmol/L (-2-2); BLOOD GAS CARBOXYHEMOGLOBIN 1.1 % (0-4); BLOOD GAS HCO3 20 mmol/L (22-26); BLOOD GAS METHEMOGLOBIN 1.1 % (0-2); BLOOD GAS O2 HGB SATURATION 96 % (90-100); BLOOD GAS OXYGEN CONTENT 16.8 Vol % (12.0-20.0); BLOOD GAS PCO2 48 mmHg (38-42); BLOOD GAS PO2 119 mmHg (61-120); BLOOD GAS TOTAL HGB 12.4 G/DL (12.0-16.0); TEMP CORR TO 98.6
[2016-09-03 11:33] LABS: CRITICAL VALUE YES; DRAW SITE LT RADIAL; FIO2 40 %; NUMBER OF ARTERIAL PUNCTURES 1; OXYGEN DEVICE VENTILATOR; STAT NO; ULNAR PULSE PRESENT; VENT SETTINGS CPAP 5/10PS
[2016-09-03] MEDS ORDERED: BUMETANIDE INJ 1 MG/4 ML VIAL IV PUSH ONE (11:45)
--- NOTE | 2016-09-03 13:30 | RADRPT ---
EXAM DATE/TIME: 09/03/2016 12:40 [place] COMPARISON: HUMERUS RIGHT (MIN 2VWS), September 02, 2016, 12:25. INDICATIONS : Evaluate right shoulder fracture, fell MEDICAL HISTORY : None. Chronic obstructive pulmonary disease. Renal cell carcinoma. Hypertension. Right humerus fractur. SURGICAL HISTORY : Hysterectomy. ENCOUNTER: Initial ACUITY: 2 days PAIN SCORE: Non-responsive. LOCATION: Right Shoulder FINDINGS: Two view examination of the right shoulder demonstrates a displaced fracture through the neck of the proximal humerus. The head of the humerus appears to be either subluxed or dislocated posteriorly. Th e scapulas grossly intact. The clavicle is grossly intact. CONCLUSION: There is a displaced fracture through the neck of the proximal humerus. The humeral head is either gandhi bluxed or displaced posteriorly. If clinically indicated, a noncontrast CT scan of the right shoulder could be performed for further evaluation. Mushtaq Hernandez MD on September 03, 2016 at 13:26 Board Certified Radiologist. This report was verified electronically.
--- NOTE | 2016-09-03 17:16 | PD.CONS ---
HPI Service Urology Consult Requested By Reason for Consult Prolapse Primary Care Physician Omayra Bryant Diagnosis: History of Present Illness The patient is an 81-year-old female with a past medical history of COPD, active smoker, hypertension and hypothyroidism. She presented to [facility] ED with her family for altered mental status and respiratory distress. Patient fel last week and broke her right arm. Evaluated at [facility] witharm sling placed and ortho follow-up planned. Patient was found to be in respiratory distress and admited and intubated, currently on vent. She was found to have a prolapsed bladder and Urology was consulted. Patient intubated and sedated, history obtained from chart and nursing staff. UOP has been marginal. Review of Systems ROS Limitations: Clinical Condition Constitutional: DENIES: Fever Endocrine: DENIES: Abnorml menstrual pattern Eyes: DENIES: Blurred vision Ears, nose, mouth, throat: DENIES: Hearing loss Respiratory: COMPLAINS OF: Apneas Cardiovascular: DENIES: Chest pain Gastrointestinal: DENIES: Abdominal pain Genitourinary: DENIES: Hematuria, Dysuria Hematologic/lymphatic: DENIES: Bruising Immunologic/allergic: DENIES: Eczema Neurologic: DENIES: Headache Psychiatric: DENIES: Anxiety Past Family Social History Past Medical History HTN COPD Hyperlipidemia Past Surgical History No known surgeries Reported Medications Reported Meds & Active Scripts Active Reported Tramadol (Tramadol HCl) 50 Mg Tab 50 Mg PO Q4H PRN Levothyroxine (Levothyroxine Sodium) 88 Mcg Tab 88 Mcg PO DAILY Lisinopril 20 Mg Tab 20 Mg PO DAILY Diltiazem CD 24 HR 240 Mg Caper 240 Mg PO DAILY Allergies: Coded Allergies: Sulfa (Verified Allergy, Severe, 09/02/16) Active Ordered Medications Current Medications Medications (Trade) Dose Ordered Sig/Inga Route Start Time Stop Time Status Last Admin IV Flush 2 ml 2 ml UNSCH PRN IVF 09/02/16 10:00 (Diprivan 1000 Mg/100ml Inj) 100 ml @ 0 mls/hr TITRATE IV 09/02/16 10:15 09/02/16 19:15 (Protonix Inj) 40 mg DAILY IV 09/02/16 13:00 09/03/16 08:09 Miscellaneous Information 1 Q361D XX 09/02/16 13:00 09/03/16 12:29 (Chlorhexidine 2% Cloth) 3 pack Taper DAILY@04 TOP 09/03/16 04:00 08/30/17 03:59 09/02/16 23:43 Chlorhexidine Gluconate 3 pack 3 pack UNSCH PRN TOP 09/02/16 13:00 (fentaNYL DRIP) 250 ml @ 0 mls/hr TITRATE IV 09/02/16 13:00 09/02/16 14:02 (D50w (Vial) Inj) 25 ml UNSCH PRN IV PUSH 09/02/16 13:00 (Glucagon Inj) 1 mg UNSCH PRN OTHER 09/02/16 13:00 (NovoLIN R SUPPLEMENTAL SCALE) 1 Q6HR SQ 09/02/16 13:00 09/02/16 18:26 Methylprednisolone Sodium Succinate 40 mg 40 mg Q8HR IV PUSH 09/02/16 14:00 09/03/16 12:29 (Zosyn 3.375 Gm Premix) 50 ml @ 100 mls/hr Q6H IV 09/02/16 17:00 09/03/16 10:31 (Synthroid) 88 mcg DAILY@0600 PO 09/03/16 06:00 Lorazepam 2 mg 2 mg Q4H PRN IV 09/03/16 03:00 09/03/16 03:44 Potassium Chloride 100 ml @ 50 mls/hr Q2H PRN IV 09/03/16 08:45 (KCl 20 Meq Premix Inj) 100 ml @ 50 mls/hr Q2H PRN IV 09/03/16 08:45 Potassium Chloride 40 meq 40 meq UNSCH PRN PO/TUBE 09/03/16 08:45 Potassium Chloride 100 ml @ 25 mls/hr UNSCH PRN IV 09/03/16 08:45 Potassium Chloride 100 ml @ 50 mls/hr Q2H PRN IV 09/03/16 08:45 (Magnesium Sulfate Inj/NS Inj) 100 ml @ 50 mls/hr UNSCH PRN IV 09/03/16 08:45 Magnesium Oxide 800 mg 800 mg UNSCH PRN PO 09/03/16 08:45 (Magnesium Sulfate Inj/NS Inj) 100 ml @ 50 mls/hr UNSCH PRN IV 09/03/16 08:45 Potassium Phosphate 2000 mg 2,000 mg Q4H PRN PO 09/03/16 08:45 (Sodium Phosphate Inj/NS 250 ml Inj) 250 ml @ 42 mls/hr UNSCH PRN IV 09/03/16 08:45 09/03/16 10:31 (KCl 40 Meq/30 ml Liq) 40 meq UNSCH PRN PO/TUBE 09/03/16 08:45 Potassium Phosphate 2000 mg 2,000 mg UNSCH PRN PO/TUBE 09/03/16 08:45 (Potassium Phosphate Inj/NS 250 ml Inj) 260 ml @ 42 mls/hr UNSCH PRN IV 09/03/16 08:45 Family History Family history reviewed and noncontributory Social History Current smoker Physical Exam Vital Signs Vital Signs Date Time Temp Pulse Resp B/P Pulse Ox O2 Delivery O2 Flow Rate FiO2 09/03/16 16:03 100 40 09/03/16 16:00 97.6 71 18 129/63 100 09/03/16 16:00 71 09/03/16 14:06 100 40 09/03/16 14:00 72 09/03/16 12:00 78 09/03/16 12:00 98.1 78 18 97/48 96 09/03/16 10:50 100 40 09/03/16 10:20 100 40 09/03/16 08:00 47 09/03/16 08:00 97.6 47 18 131/59 100 09/03/16 06:00 63 09/03/16 04:09 100 45 09/03/16 04:00 67 09/03/16 04:00 99.0 67 18 107/53 99 09/03/16 02:00 70 09/03/16 01:46 100 45 09/03/16 00:00 70 09/03/16 00:00 98.0 70 18 96/52 100 09/02/16 23:21 99 50 09/02/16 22:00 68 09/02/16 20:33 96 50 09/02/16 20:00 98.4 68 18 115/87 93 09/02/16 20:00 68 09/02/16 19:00 98.3 93 18 85/50 93 09/02/16 18:27 64 18 121/58 97 30 Physical Exam GENERAL: This is a well-nourished, well-developed patient, Intubated and sedated SKIN: No rashes, ecchymoses or lesions. Cool and dry. HEAD: Atraumatic. Normocephalic. EYES: No scleral icterus. No injection or drainage. ENT: Nose without bleeding, purulent drainage NECK: Trachea midline. CARDIOVASCULAR: Regular rate and rhythm RESPIRATORY: Intubated and sedated. GASTROINTESTINAL: Abdomen soft, non-tender, nondistended. : Evidence of prolapse with large cystocele noted beyond the vaginal introitus. Normal external female genitalia MUSCULOSKELETAL: Extremities without clubbing, cyanosis, or edema. NEUROLOGICAL Motor and sensory grossly within normal limits. Laboratory Laboratory Tests Test 09/02/16 09/03/16 09/03/16 19:40 03:40 11:08 Nasal Screen MRSA (PCR) NEGATIVE White Blood Count 12.9 Red Blood Count 3.89 Hemoglobin 11.1 Hematocrit 34.5 Mean Corpuscular Volume 88.7 Mean Corpuscular Hemoglobin 28.5 Mean Corpuscular Hemoglobin 32.1 Concent Red Cell Distribution Width 14.7 Platelet Count 338 Mean Platelet Volume 7.0 Neutrophils (%) (Auto) 89.9 Lymphocytes (%) (Auto) 7.6 Monocytes (%) (Auto) 2.4 Eosinophils (%) (Auto) 0.0 Basophils (%) (Auto) 0.1 Neutrophils # (Auto) 11.6 Lymphocytes # (Auto) 1.0 Monocytes # (Auto) 0.3 Eosinophils # (Auto) 0.0 Basophils # (Auto) 0.0 CBC Comment DIFF FINAL Differential Comment Sodium Level 139 Potassium Level 4.0 Chloride Level 108 Carbon Dioxide Level 22.3 Anion Gap 9 Blood Urea Nitrogen 14 Creatinine 0.92 Estimat Glomerular Filtration 58 Rate Random Glucose 166 Calcium Level 7.6 Phosphorus Level 2.3 Magnesium Level 1.8 Blood Gas Puncture Site LT RADIAL Blood Gas Patient Temperature 98.6 Blood Gas HCO3 20 Blood Gas Base Excess -6.6 Blood Gas Oxygen Saturation 96 Arterial Blood pH 7.23 Arterial Blood Partial 48 Pressure CO2 Arterial Blood Partial 119 Pressure O2 Arterial Blood Oxygen Content 16.8 Arterial Blood 1.1 Carboxyhemoglobin Arterial Blood Methemoglobin 1.1 Blood Gas Hemoglobin 12.4 Oxygen Delivery Device VENTILATOR Blood Gas Ventilator Setting CPAP 5/10PS Blood Gas Inspired Oxygen 40 Date/Time Procedure Status Source Growth 09/02/16 10:00 Urine Culture - Preliminary Resulted Urine Clean Catch Gram Negative Nba 09/02/16 10:00 Aerobic Blood Culture - Preliminary Resulted Blood Peripheral NO GROWTH IN 1 DAY 12/28/16 10:00 Anaerobic Blood Culture - Preliminary Resulted Blood Peripheral NO GROWTH IN 1 DAY Result Diagram: 09/03/16 0340 09/03/16 0340 Imaging Last 72 hours Impressions Shoulder X-Ray 09/03/16 0000 Signed Impressions: Service Date/Time: August 12:40 - CONCLUSION: There is a displaced fracture through the neck of the proximal humerus. The humeral head is either subluxed or displaced posteriorly. If clinically indicated, a noncontrast CT scan of the right shoulder could be performed for further evaluation. Mushtaq Hernandez MD Head CT 09/02/16 0959 Signed Impressions: Service Date/Time: Friday, September 02, 2016 12:01 - CONCLUSION: 1. No focal or acute intracranial hemorrhage. 2. Bilateral cortical atrophy and chronic white matter changes. 3. Chronic sinus disease. Mushtaq Hernandez MD Chest X-Ray 09/02/1659 Signed Impressions: Service Date/Time: Friday, September 02, 2016 10:57 - CONCLUSION: 1. ET tube and NG tube in good position. 2. Hyperaeration of both lung miller with no acute pulmonary infiltrates. 3. No definite pneumothorax. Mushtaq Hernandez MD Humerus X-Ray 09/02/16 0000 Signed Impressions: Service Date/Time: Friday, September 02, 2016 12:25 - CONCLUSION: Fracture subcapital and humeral head. Richie Mtz MD Elbow X-Ray 09/02/16 0000 Signed Impressions: Service Date/Time: Friday, September 02, 2016 12:29 - CONCLUSION: No acute bony injury Richie Mtz MD CT Angiography 09/02/16 0000 Signed Impressions: Service Date/Time: Friday, September 02, 2016 12:01 - CONCLUSION: 1. No evidence of PE. 2. Hyperaeration of the lung miller suggestive of COPD. 3. A few small scattered interstitial infiltrates in the right lung. Mushtaq Hernandez MD Assessment and Plan Problem List: (1) UTI (urinary tract infection) ICD Code: N39.0 Status: Acute Assessment and Plan -Significant pelvic organ prolapse -No surgical intervention indicated given patient current clinical condition -Patient may benefit from a pessary to aid in lifting the pelvic organs -Unlikely any intervention while inpatient given her clinical status, however OB /DIRECTOR AMBULATORY consultation or follow-up is recommended -Please call with questions Problem Qualifiers (1) UTI (urinary tract infection): Qualified Code: N39.0 - Urinary tract infection without hematuria, site unspecified Renzo Felder MD Sep 03, 2016 17:15
[2016-09-03] MEDS: fentaNYL DRIP 250 ML IV SCH (17:40)
--- NOTE | 2016-09-03 21:37 | PD.CONS ---
cc: Drew Le Jr., MD HPI Service Orthopedic Surgeons Consult Requested By Primary Care Physician Omayra Bryant Admission Diagnosis altered mental status, respiratory failure, sepsis, hypoxia Diagnoses: Chief Complaint: right proximal humerus frature History of Present Illness 81-year-old female with a past medical history of COPD, active smoker, hypertension and hypothyroidism. s/p fall and presented with altered mental status and respiratory distress. According to the patient's daughter she fell last Wednesday and broke her right arm. She was initially treated and dc from [facility] ED with recs to f/u with orthopedics outpatient. According to daughter, The patient has been combative and agitated at home. She was intubated and placed on full mechanical ventilation upon arrival in ED. PAST MEDICAL HISTORY 1. COPD. 2. Hypertension. 3. Hypothyroidism. PAST SURGICAL HISTORY Previous hysterectomy. SOCIAL HISTORY Active smoker, non-drinker. Lives with her daughter. FAMILY HISTORY Noncontributory. ALLERGIES SULFA. MEDICATIONS Reported medications: 1. Tramadol. 2. Levothyroxine. 3. Lisinopril. 4. Diltiazem. REVIEW OF SYSTEMS As per HPI. The rest of the review of systems not available as patient is intubated Past Family Social History Allergies: Coded Allergies: Sulfa (Verified Allergy, Severe, 09/02/16) Active Ordered Medications Current Medications Medications (Trade) Dose Ordered Sig/Inga Route Start Time Stop Time Status Last Admin IV Flush 2 ml 2 ml UNSCH PRN IVF 09/02/16 10:00 (Diprivan 1000 Mg/100ml Inj) 100 ml @ 0 mls/hr TITRATE IV 09/02/16 10:15 09/02/16 19:15 (Protonix Inj) 40 mg DAILY IV 09/02/16 13:00 09/03/16 08:09 Miscellaneous Information 1 Q361D XX 09/02/16 13:00 09/03/16 12:29 (Chlorhexidine 2% Cloth) 3 pack Taper DAILY@04 TOP 09/03/16 04:00 08/30/17 03:59 09/02/16 23:43 Chlorhexidine Gluconate 3 pack 3 pack UNSCH PRN TOP 09/02/16 13:00 (fentaNYL DRIP) 250 ml @ 0 mls/hr TITRATE IV 09/02/16 13:00 09/03/16 17:40 (D50w (Vial) Inj) 25 ml UNSCH PRN IV PUSH 09/02/16 13:00 (Glucagon Inj) 1 mg UNSCH PRN OTHER 09/02/16 13:00 (NovoLIN R SUPPLEMENTAL SCALE) 1 Q6HR SQ 09/02/16 13:00 09/02/16 18:26 Methylprednisolone Sodium Succinate 40 mg 40 mg Q8HR IV PUSH 09/02/16 14:00 09/03/16 12:29 (Zosyn 3.375 Gm Premix) 50 ml @ 100 mls/hr Q6H IV 09/02/16 17:00 09/03/16 17:22 (Synthroid) 88 mcg DAILY@0600 PO 09/03/16 06:00 Lorazepam 2 mg 2 mg Q4H PRN IV 09/03/16 03:00 09/03/16 03:44 Potassium Chloride 100 ml @ 50 mls/hr Q2H PRN IV 09/03/16 08:45 (KCl 20 Meq Premix Inj) 100 ml @ 50 mls/hr Q2H PRN IV 09/03/16 08:45 Potassium Chloride 40 meq 40 meq UNSCH PRN PO/TUBE 09/03/16 08:45 Potassium Chloride 100 ml @ 25 mls/hr UNSCH PRN IV 09/03/16 08:45 Potassium Chloride 100 ml @ 50 mls/hr Q2H PRN IV 09/03/16 08:45 (Magnesium Sulfate Inj/NS Inj) 100 ml @ 50 mls/hr UNSCH PRN IV 09/03/16 08:45 Magnesium Oxide 800 mg 800 mg UNSCH PRN PO 09/03/16 08:45 (Magnesium Sulfate Inj/NS Inj) 100 ml @ 50 mls/hr UNSCH PRN IV 09/03/16 08:45 Potassium Phosphate 2000 mg 2,000 mg Q4H PRN PO 09/03/16 08:45 (Sodium Phosphate Inj/NS 250 ml Inj) 250 ml @ 42 mls/hr UNSCH PRN IV 09/03/16 08:45 09/03/16 10:31 (KCl 40 Meq/30 ml Liq) 40 meq UNSCH PRN PO/TUBE 09/03/16 08:45 Potassium Phosphate 2000 mg 2,000 mg UNSCH PRN PO/TUBE 09/03/16 08:45 (Potassium Phosphate Inj/NS 250 ml Inj) 260 ml @ 42 mls/hr UNSCH PRN IV 09/03/16 08:45 Reported Meds & Active Scripts Active Reported Tramadol (Tramadol HCl) 50 Mg Tab 50 Mg PO Q4H PRN Levothyroxine (Levothyroxine Sodium) 88 Mcg Tab 88 Mcg PO DAILY Lisinopril 20 Mg Tab 20 Mg PO DAILY Diltiazem CD 24 HR 240 Mg Caper 240 Mg PO DAILY Physical Exam Vital Signs Vital Signs Date Time Temp Pulse Resp B/P Pulse Ox O2 Delivery O2 Flow Rate FiO2 09/03/16 20:00 96.8 73 19 144/65 100 09/03/16 20:00 73 09/03/16 18:00 72 09/03/16 16:03 100 40 09/03/16 16:00 97.6 71 18 129/63 100 09/03/16 16:00 71 09/03/16 14:06 100 40 09/03/16 14:00 72 09/03/16 12:00 78 09/03/16 12:00 98.1 78 18 97/48 96 09/03/16 10:50 100 40 09/03/16 10:20 100 40 09/03/16 08:00 47 09/03/16 08:00 97.6 47 18 131/59 100 09/03/16 06:00 63 09/03/16 04:09 100 45 09/03/16 04:00 67 09/03/16 04:00 99.0 67 18 107/53 99 09/03/16 02:00 70 09/03/16 01:46 100 45 09/03/16 00:00 70 09/03/16 00:00 98.0 70 18 96/52 100 09/02/16 23:21 99 50 09/02/16 22:00 68 Physical Exam intubated incomplete exam RUE: mild shoulder deformity and ecchymoses. generalized UE edema. Good cap refill, 2+ radial pulses. soft compartments Laboratory Laboratory Tests Test 09/03/16 09/03/16 03:40 11:08 White Blood Count 12.9 Red Blood Count 3.89 Hemoglobin 11.1 Hematocrit 34.5 Mean Corpuscular Volume 88.7 Mean Corpuscular Hemoglobin 28.5 Mean Corpuscular Hemoglobin 32.1 Concent Red Cell Distribution Width 14.7 Platelet Count 338 Mean Platelet Volume 7.0 Neutrophils (%) (Auto) 89.9 Lymphocytes (%) (Auto) 7.6 Monocytes (%) (Auto) 2.4 Eosinophils (%) (Auto) 0.0 Basophils (%) (Auto) 0.1 Neutrophils # (Auto) 11.6 Lymphocytes # (Auto) 1.0 Monocytes # (Auto) 0.3 Eosinophils # (Auto) 0.0 Basophils # (Auto) 0.0 CBC Comment DIFF FINAL Differential Comment Sodium Level 139 Potassium Level 4.0 Chloride Level 108 Carbon Dioxide Level 22.3 Anion Gap 9 Blood Urea Nitrogen 14 Creatinine 0.92 Estimat Glomerular Filtration 58 Rate Random Glucose 166 Calcium Level 7.6 Phosphorus Level 2.3 Magnesium Level 1.8 Blood Gas Puncture Site LT RADIAL Blood Gas Patient Temperature 98.6 Blood Gas HCO3 20 Blood Gas Base Excess -6.6 Blood Gas Oxygen Saturation 96 Arterial Blood pH 7.23 Arterial Blood Partial 48 Pressure CO2 Arterial Blood Partial 119 Pressure O2 Arterial Blood Oxygen Content 16.8 Arterial Blood 1.1 Carboxyhemoglobin Arterial Blood Methemoglobin 1.1 Blood Gas Hemoglobin 12.4 Oxygen Delivery Device VENTILATOR Blood Gas Ventilator Setting CPAP 5/10PS Blood Gas Inspired Oxygen 40 Date/Time Procedure Status Source Growth 09/02/16 10:00 Urine Culture - Preliminary Resulted Urine Clean Catch Gram Negative Nba 09/02/16 10:00 Aerobic Blood Culture - Preliminary Resulted Blood Peripheral NO GROWTH IN 1 DAY 09/02/16 10:00 Anaerobic Blood Culture - Preliminary Resulted Blood Peripheral NO GROWTH IN 1 DAY Result Diagram: 09/03/16 0340 09/03/16 0340 Imaging Last 72 hours Impressions Shoulder X-Ray 09/03/16 0000 Signed Impressions: Service Date/Time: August 12:40 - CONCLUSION: There is a displaced fracture through the neck of the proximal humerus. The humeral head is either subluxed or displaced posteriorly. If clinically indicated, a noncontrast CT scan of the right shoulder could be performed for further evaluation. Mushtaq Hernandez MD Head CT 09/02/16 0959 Signed Impressions: Service Date/Time: Friday, September 02, 2016 12:01 - CONCLUSION: 1. No focal or acute intracranial hemorrhage. 2. Bilateral cortical atrophy and chronic white matter changes. 3. Chronic sinus disease. Mushtaq Hernandez MD Chest X-Ray 09/02/1659 Signed Impressions: Service Date/Time: Friday, September 02, 2016 10:57 - CONCLUSION: 1. ET tube and NG tube in good position. 2. Hyperaeration of both lung miller with no acute pulmonary infiltrates. 3. No definite pneumothorax. Mushtaq Hernandez MD Humerus X-Ray 09/02/16 0000 Signed Impressions: Service Date/Time: Friday, September 02, 2016 12:25 - CONCLUSION: Fracture subcapital and humeral head. Richie tMz MD Elbow X-Ray 09/02/16 0000 Signed Impressions: Service Date/Time: Friday, September 02, 2016 12:29 - CONCLUSION: No acute bony injury Richie Mtz MD CT Angiography 09/02/16 0000 Signed Impressions: Service Date/Time: Friday, September 02, 2016 12:01 - CONCLUSION: 1. No evidence of PE. 2. Hyperaeration of the lung miller suggestive of COPD. 3. A few small scattered interstitial infiltrates in the right lung. Mushtaq Hernandez MD Assessment & Plan Assessment and Plan 81yo female with complicated past medical history and currently intubated on vent support in ICU. She sustained a displaced surgical neck fracture of the right proximal humerus s/p fall. She is currently not a good surgical candidate and I therefore recommend nonoperative treatment. -CT shoulder -sling for comfort -PT for passive ROM and pendulums -NWB Drew Burdick Jr., MD Sep 03, 2016 21:37
[2016-09-03] MEDS: PROPOFOL 1000 MG/100 ML INJ 100 ML IV SCH (21:41)
[2016-09-04] VITALS (16 sets, daily range): BP systolic 93–133; BP diastolic 47–87; PULSE 70–99; RESP 13–18; TEMP 97.6–98.1; O2SAT 97–100
[2016-09-04] MEDS: LORazepam 2 MG/ML VIAL IV PRN ×2 (02:47→08:42)
[2016-09-04] MEDS: RESP: ALBUTEROL 2.5 MG/IPRATROPIUM 0.5 MG NEB (SCH) INH ×4 (03:25→21:18)
[2016-09-04] MEDS: CHLORHEXIDINE GLUCONATE 2 % 1 PACK (2 CLOTHS) TOP SCH (04:00)
[2016-09-04] MEDS: INSULIN NovoLIN REGULAR SUPPLEMENTAL SCALE SQ SCH ×3 (05:26→11:44)
[2016-09-04] MEDS: LEVOTHYROXINE SODIUM 88 MCG TAB PO SCH (05:26)
[2016-09-04] MEDS: PIPERACIL-TAZO 3.375 GM PREMIX 50 ML IV SCH ×4 (05:26→23:16)
[2016-09-04] MEDS: methylPREDNISolone SOD SUCC 40 MG/1 ML VIAL IV PUSH SCH ×3 (05:26→23:16)
[2016-09-04 06:31] LABS: BICARBONATE 16.6 MEQ/L (21.0-32.0); MAGNESIUM 1.9 MG/DL (1.5-2.5); POTASSIUM 4.6 MEQ/L (3.5-5.1)
[2016-09-04 07:20] LABS: AUTOMATED NEUTROPHIL # 23.4 TH/MM3 (1.8-7.7); BASOPHIL # 0.1 TH/MM3 (0-0.2); BASOPHIL % 0.3 % (0.0-2.0); EOSINOPHIL % 0.2 % (0.0-4.0); HEMATOCRIT 41.7 % (35.0-46.0); LYMPH % 6.3 % (9.0-44.0); LYMPHOCYTE # 1.7 TH/MM3 (1.0-4.8); MEAN CELL VOLUME 88.8 FL (80.0-100.0); MEAN CORPUSCULAR HEMOGLOBIN 28.7 PG (27.0-34.0); MEAN CORPUSCULAR HGB CONC 32.3 % (32.0-36.0); MONO % 5.8 % (0.0-8.0); NEUT % 87.4 % (16.0-70.0); PLATELET COUNT 308 TH/MM3 (150-450); RED BLOOD COUNT 4.69 MIL/MM3 (4.00-5.30); RED CELL DISTRIBUTION WIDTH 15.5 % (11.6-17.2); WHITE BLOOD COUNT 26.8 TH/MM3 (4.0-11.0)
[2016-09-04 07:22] LABS: HEMO FLAGS AUTO DIFF
--- NOTE | 2016-09-04 08:31 | HHI.CCPN ---
Subjective Remarks/Hospital Course The patient is an 81-year-old female with a past medical history of COPD, active smoker, hypertension and hypothyroidism. She presented to [facility] ED with her family for altered mental status and respiratory distress. According to the patient's daughter she fell last Wednesday and broke her right arm. She was taken to [facility] ED and was found to have a right humerus fracture. She was discharged home with an arm sling and advised to follow-up with an orthopedic surgeon. In addition the patient was taking tramadol one tablet every four hours as needed for pain for the past three days. The patient has been combative and agitated at home according to the daughter and when she arrived to the ED she was found to have an O2 saturation in the 80s on room in triage. She was intubated and placed on full mechanical ventilation. The patient was given etomidate and succinylcholine for intubation. A chest x-ray post intubation showed ET tube above the christianne, hyperaeration of both lungs with no acute pulmonary infiltrates. She also underwent a CT angiogram of the chest which showed no evidence of PE, however, it showed a few small scattered interstitial infiltrates in the right lung. The patient also had CT scan of the brain which showed no focal or acute intracranial hemorrhage. She received 2 liters of crystalloids in the ED in addition to vancomycin and Zosyn. Her laboratory data is significant for leukocytosis with a WBC of 14.1, however, the patient is afebrile. Lactic acid measured at 1.4 and her urinalysis was compatible with a UTI. She had 59 wbc's with moderate bacteria, positive nitrite and small leukocyte esterase. X-ray of her right humerus showed a subcapital and humeral head fracture. When seen the patient is sedated with Diprivan and on full mechanical ventilation. Current blood pressure is 119 /54 with a pulse of 59. ABG post intubation showed a pH of 7.33, CO2 39, PAO2 442, bicarb 20, saturation 96% on assist control ventilation with a respiratory rate of 18, tidal volume 500, PEEP of 5, FIO2 100%. 09/03 No acute events overnight. Sedated with Fentanyl and intubated. 09/04 Patient remains sedated with Fentanyl and intubated. ABG showed mild resp acidosis on CPAP trials yesterday. Objective Vital Signs Date Time Temp Pulse Resp B/P Pulse Ox O2 Delivery O2 Flow Rate FiO2 09/04/16 08:03 100 40 09/04/16 06:00 74 09/04/16 04:00 97.8 18 120/60 09/02/16 12:50 Ventilator Intake and Output 09/03/16 09/03/16 09/04/16 08:00 16:00 00:00 Intake Total 568 ml 546 ml 620 ml Output Total 90 ml 450 ml Balance 568 ml 456 ml 170 ml Result Diagram: 09/04/16 0408 09/04/168 Other Results Laboratory Tests Test 09/03/16 09/04/16 11:08 04:08 Blood Gas Puncture Site LT RADIAL Blood Gas Patient Temperature 98.6 Blood Gas HCO3 20 mmol/L Blood Gas Base Excess -6.6 mmol/L Blood Gas Oxygen Saturation 96 % Arterial Blood pH 7.23 Arterial Blood Partial 48 mmHg Pressure CO2 Arterial Blood Partial 119 mmHg Pressure O2 Arterial Blood Oxygen Content 16.8 Vol % Arterial Blood 1.1 % Carboxyhemoglobin Arterial Blood Methemoglobin 1.1 % Blood Gas Hemoglobin 12.4 G/DL Oxygen Delivery Device VENTILATOR Blood Gas Ventilator Setting CPAP 5/10PS Blood Gas Inspired Oxygen 40 % White Blood Count 26.8 TH/MM3 Red Blood Count 4.69 MIL/MM3 Hemoglobin 13.5 GM/DL Hematocrit 41.7 % Mean Corpuscular Volume 88.8 FL Mean Corpuscular Hemoglobin 28.7 PG Mean Corpuscular Hemoglobin 32.3 % Concent Red Cell Distribution Width 15.5 % Platelet Count 308 TH/MM3 Mean Platelet Volume 7.8 FL Neutrophils (%) (Auto) 87.4 % Lymphocytes (%) (Auto) 6.3 % Monocytes (%) (Auto) 5.8 % Eosinophils (%) (Auto) 0.2 % Basophils (%) (Auto) 0.3 % Neutrophils # (Auto) 23.4 TH/MM3 Lymphocytes # (Auto) 1.7 TH/MM3 Monocytes # (Auto) 1.5 TH/MM3 Eosinophils # (Auto) 0.0 TH/MM3 Basophils # (Auto) 0.1 TH/MM3 CBC Comment AUTO DIFF Differential Comment Hematology Comments Sodium Level 140 MEQ/L Potassium Level 4.6 MEQ/L Chloride Level 108 MEQ/L Carbon Dioxide Level 16.6 MEQ/L Anion Gap 15 MEQ/L Blood Urea Nitrogen 17 MG/DL Creatinine 1.10 MG/DL Estimat Glomerular Filtration 47 ML/MIN Rate Random Glucose 90 MG/DL Calcium Level 8.1 MG/DL Phosphorus Level 4.3 MG/DL Magnesium Level 1.9 MG/DL Imaging Last Impressions Shoulder X-Ray 09/03/16 0000 Signed Impressions: Service Date/Time: August 12:40 - CONCLUSION: There is a displaced fracture through the neck of the proximal humerus. The humeral head is either subluxed or displaced posteriorly. If clinically indicated, a noncontrast CT scan of the right shoulder could be performed for further evaluation. Mushtaq Hernandez MD Head CT 09/02/1659 Signed Impressions: Service Date/Time: Friday, September 02, 2016 12:01 - CONCLUSION: 1. No focal or acute intracranial hemorrhage. 2. Bilateral cortical atrophy and chronic white matter changes. 3. Chronic sinus disease. Mushtaq Hernandez MD Chest X-Ray 09/02/1659 Signed Impressions: Service Date/Time: Friday, September 02, 2016 10:57 - CONCLUSION: 1. ET tube and NG tube in good position. 2. Hyperaeration of both lung miller with no acute pulmonary infiltrates. 3. No definite pneumothorax. Mushtaq Hernandez MD Humerus X-Ray 09/02/16 0000 Signed Impressions: Service Date/Time: Friday, September 02, 2016 12:25 - CONCLUSION: Fracture subcapital and humeral head. Richie Mtz MD Elbow X-Ray 09/02/16 0000 Signed Impressions: Service Date/Time: Friday, September 02, 2016 12:29 - CONCLUSION: No acute bony injury Richie Mtz MD CT Angiography 09/02/16 0000 Signed Impressions: Service Date/Time: Friday, September 02, 2016 12:01 - CONCLUSION: 1. No evidence of PE. 2. Hyperaeration of the lung miller suggestive of COPD. 3. A few small scattered interstitial infiltrates in the right lung. Mushtaq Hernandez MD Objective Remarks GENERAL: Patient is 81 yo intubated and sedated. SKIN: Warm and dry. HEAD: Normocephalic. EYES: No scleral icterus. No injection or drainage. NECK: Supple, trachea midline. No JVD or lymphadenopathy. Orally intubated. CARDIOVASCULAR: Regular rate and rhythm without murmurs, gallops, or rubs. RESPIRATORY: Breath sounds equal bilaterally. No accessory muscle use. GASTROINTESTINAL: Abdomen soft, non-tender, nondistended. MUSCULOSKELETAL: No cyanosis, or edema. Neuro: Sedated. A/P Assessment and Plan 1. VDRF 2. Altered mental status. 3. Urinary tract infection. 4. Leukocytosis. 5. Right humerus fracture. 6. Status post fall. 7. Hypothyroidism. 8. COPD. 9. Hypertension. PLAN Neuro: On fentanyl infusion for sedation and analgesia while intubated. Daily sedation vacation. Monitor neuro status closely. CT brain showed no evidence of any acute intracranial findings. Pulm: Continue with vent support and maintain sats above 92%. Bronchodilators, Solu-Medrol 40 mg IV q.8h. ICU vent bundle, continue CPAP trials as dorie CV: Monitor HR and BP and maintain MAP> 65 mmHg. Lactic acid level measured at 1.4. : Monitor renal function, I's and O's, and electrolyte replacement per protocol. GI: On Protonix 40 mg IV daily for GI prophylaxis. Start TF-Glucerna 1.5 ID: Continue with abx(Zosyn) and monitor for signs of infection( fever and WBC) . Urine cx: GNR Heme: Monitor CBC. Musk: Orthopedic surgery consulted regarding right humerus fracture. For CT right shoulder per Ortho. Endo: SSI with Accu-Cheks q.6h. for glycemic control Continue with Synthroid 88 mcg daily. TSH: 1.28. GI prophylaxis with Protonix 40 mg daily and DVT prophylaxis with SCDs. Not on chemical anticoagulation prophylaxis for now given extensive ecchymosis of her right upper extremity. Discussed with family and updated them on her condition. CCT 30 mins Karthik Cervantes MD Sep 04, 2016 08:31
[2016-09-04] MEDS: PANTOPRAZOLE SODIUM 40 MG VIAL IV SCH (08:42)
[2016-09-04 09:13] LABS: SCAN/DIFF AUTO DIFF CONFIRMED
[2016-09-04 10:26] LABS: BASOPHIL % 0.2 % (0.0-2.0); EOSINOPHIL % 0.1 % (0.0-4.0); HEMATOCRIT 38.4 % (35.0-46.0); HEMO FLAGS DIFF FINAL; LYMPH % 5.1 % (9.0-44.0); LYMPHOCYTE # 1.2 TH/MM3 (1.0-4.8); MEAN CELL VOLUME 89.5 FL (80.0-100.0); MEAN CORPUSCULAR HEMOGLOBIN 28.4 PG (27.0-34.0); MEAN CORPUSCULAR HGB CONC 31.7 % (32.0-36.0); MONO % 3.9 % (0.0-8.0); NEUT % 90.7 % (16.0-70.0); PLATELET COUNT 324 TH/MM3 (150-450); RED BLOOD COUNT 4.29 MIL/MM3 (4.00-5.30); RED CELL DISTRIBUTION WIDTH 15.3 % (11.6-17.2); WHITE BLOOD COUNT 23.1 TH/MM3 (4.0-11.0)
[2016-09-04] MEDS ORDERED: VANCOMYCIN INJ 1,000 MG in SODIUM CHLOR 0.9% 250 ML INJ 250 ML IV ONE (11:15)
[2016-09-04] MEDS ORDERED: TERBUTALINE INJ 1 MG/ML AMP SQ PRN (11:15)
[2016-09-04 12:42] LABS: BLOOD GAS BASE EXCESS -7.8 mmol/L (-2-2); BLOOD GAS CARBOXYHEMOGLOBIN 1.2 % (0-4); BLOOD GAS HCO3 18 mmol/L (22-26); BLOOD GAS O2 HGB SATURATION 95 % (90-100); BLOOD GAS OXYGEN CONTENT 15.5 Vol % (12.0-20.0); BLOOD GAS PCO2 43 mmHg (38-42); BLOOD GAS PO2 100 mmHg (61-120); BLOOD GAS TOTAL HGB 11.6 G/DL (12.0-16.0); TEMP CORR TO 98.6
[2016-09-04 12:43] LABS: CRITICAL VALUE YES; DRAW SITE RT RADIAL; FIO2 40 %; NUMBER OF ARTERIAL PUNCTURES 1; OXYGEN DEVICE VENTILATOR; ULNAR PULSE PRESENT
[2016-09-04 12:44] LABS: STAT NO
[2016-09-04] MEDS ORDERED: HALOPERIDOL LACTATE 5 MG/ML AMP IV PUSH ONE (13:00)
[2016-09-04] MEDS ORDERED: SODIUM BICARBONATE 8.4% INJ 50 MEQ/50 ML SYR IV PUSH ONE (13:00)
[2016-09-04] MEDS: DEXT 5%-NACL 0.9% 1000 ML INJ 1,000 ML IV SCH (13:27)
[2016-09-04] MEDS: NOREPINEPHRINE-DEXTROSE DRIP 250 ML IV SCH (14:29)
[2016-09-04] MEDS ORDERED: LIDOCAINE HCL 1% 50 ML VIAL ONE (16:35)
--- NOTE | 2016-09-04 16:48 | RADRPT ---
EXAM DATE/TIME: 09/04/2016 16:19 [facility] COMPARISON: CHEST SINGLE AP, September 02, 2016, 10:57. INDICATIONS : Respiratory Failure MEDICAL HISTORY : Chronic obstructive pulmonary disease. Renal cell carcinomaHypertension. Right humerus fracture SURGICAL HISTORY : Hysterectomy. ENCOUNTER: Subsequent ACUITY: 3 days PAIN SCORE: Non-responsive. LOCATION: Bilateral chest FINDINGS: There is a large right pneumothorax with 6.5 cm of separation. There is mediastinal shift to the left . There is an ET tube and NG tube in place. The right lung is grossly clear. There are no pleural eff usions. The heart size is stable. These findings were called by telephone immediately to the patient's floor and given to the nurse. CONCLUSION: Large right pneumothorax with 6.5 cm of separation. There is mediastinal shift to the left. Mushtaq Hernandez MD on September 04, 2016 at 16:43 Board Certified Radiologist. This report was verified electronically.
--- NOTE | 2016-09-04 18:01 | RADRPT ---
EXAM DATE/TIME: 09/04/2016 17:23 [facility] COMPARISON: CHEST SINGLE AP, September 02, 2016, 10:57. CHEST SINGLE AP, September 04, 2016, 16:19. INDICATIONS : Post chest tube placement. MEDICAL HISTORY : None. SURGICAL HISTORY : None. ENCOUNTER: Initial ACUITY: 1 day PAIN SCORE: Non-responsive. LOCATION: Bilateral chest FINDINGS: Placement of a large bore right chest tube toward the apex is noted with subcutaneous emphysema super ficially. The pneumothorax has completely resolved midline structures not correctly situated. ET tube is in place above the christianne . Left lung clear as is the right lung CONCLUSION: Place a right chest tube with complete clearing of the pneumothorax. Midline structures not properly situated. ET tube above the christianne. Richie Mtz MD on September 04, 2016 at 17:58 Board Certified Radiologist. This report was verified electronically.
[2016-09-04] MEDS ORDERED: SODIUM CHLOR 0.9% 1000 ML INJ 1,000 ML IV ONE (19:15)
[2016-09-04 19:44] LABS: BLOOD GAS BASE EXCESS -5.4 mmol/L (-2-2); BLOOD GAS CARBOXYHEMOGLOBIN 1.4 % (0-4); BLOOD GAS HCO3 19 mmol/L (22-26); BLOOD GAS METHEMOGLOBIN 1.2 % (0-2); BLOOD GAS O2 HGB SATURATION 96 % (90-100); BLOOD GAS OXYGEN CONTENT 14.7 Vol % (12.0-20.0); BLOOD GAS PCO2 33 mmHg (38-42); BLOOD GAS PO2 138 mmHg (61-120); BLOOD GAS TOTAL HGB 10.6 G/DL (12.0-16.0); TEMP CORR TO 98.6
[2016-09-04 19:45] LABS: CRITICAL VALUE NO; DRAW SITE LT RADIAL; FIO2 50 %; OXYGEN DEVICE VENTILATOR; VENT SETTINGS AC/18/500/PEEP5
[2016-09-04 19:46] LABS: NUMBER OF ARTERIAL PUNCTURES 2; STAT NO; ULNAR PULSE PRESENT
[2016-09-05] VITALS (19 sets, daily range): BP systolic 76–115; BP diastolic 45–57; PULSE 52–122; RESP 10–20; TEMP 96–98.9; O2SAT 93–100
[2016-09-05] MEDS: RESP: ALBUTEROL 2.5 MG/IPRATROPIUM 0.5 MG NEB (SCH) INH ×4 (03:28→21:00)
[2016-09-05] MEDS: CHLORHEXIDINE GLUCONATE 2 % 1 PACK (2 CLOTHS) TOP SCH (04:00)
[2016-09-05] MEDS: INSULIN NovoLIN REGULAR SUPPLEMENTAL SCALE SQ SCH ×4 (06:00→17:48)
[2016-09-05] MEDS: NOREPINEPHRINE-DEXTROSE DRIP 250 ML IV SCH (06:17)
[2016-09-05] MEDS: PROPOFOL 1000 MG/100 ML INJ 100 ML IV SCH (06:17)
[2016-09-05] MEDS: fentaNYL DRIP 250 ML IV SCH (06:18)
[2016-09-05] MEDS: LEVOTHYROXINE SODIUM 88 MCG TAB PO SCH (06:18)
[2016-09-05] MEDS: PIPERACIL-TAZO 3.375 GM PREMIX 50 ML IV SCH ×4 (06:18→22:41)
[2016-09-05] MEDS: methylPREDNISolone SOD SUCC 40 MG/1 ML VIAL IV PUSH SCH ×3 (06:18→22:40)
[2016-09-05 06:44] LABS: AUTOMATED NEUTROPHIL # 16.8 TH/MM3 (1.8-7.7); BASOPHIL % 0.1 % (0.0-2.0); HEMATOCRIT 33.8 % (35.0-46.0); HEMO FLAGS DIFF FINAL; LYMPH % 5.2 % (9.0-44.0); MEAN CELL VOLUME 90.1 FL (80.0-100.0); MEAN CORPUSCULAR HEMOGLOBIN 28.9 PG (27.0-34.0); MEAN CORPUSCULAR HGB CONC 32.1 % (32.0-36.0); MONO % 4.8 % (0.0-8.0); NEUT % 89.9 % (16.0-70.0); PLATELET COUNT 301 TH/MM3 (150-450); RED BLOOD COUNT 3.75 MIL/MM3 (4.00-5.30); WHITE BLOOD COUNT 18.7 TH/MM3 (4.0-11.0)
[2016-09-05 07:17] LABS: BICARBONATE 20.7 MEQ/L (21.0-32.0); MAGNESIUM 1.8 MG/DL (1.5-2.5); POTASSIUM 3.1 MEQ/L (3.5-5.1)
[2016-09-05 07:38] LABS: CALCIUM-PROTEIN CORRECTED 8.1 MG/DL (8.5-10.1)
--- NOTE | 2016-09-05 08:15 | HHI.CCPN ---
Subjective Remarks/Hospital Course The patient is an 81-year-old female with a past medical history of COPD, active smoker, hypertension and hypothyroidism. She presented to [facility] ED with her family for altered mental status and respiratory distress. According to the patient's daughter she fell last Wednesday and broke her right arm. She was taken to [facility] ED and was found to have a right humerus fracture. She was discharged home with an arm sling and advised to follow-up with an orthopedic surgeon. In addition the patient was taking tramadol one tablet every four hours as needed for pain for the past three days. The patient has been combative and agitated at home according to the daughter and when she arrived to the ED she was found to have an O2 saturation in the 80s on room in triage. She was intubated and placed on full mechanical ventilation. The patient was given etomidate and succinylcholine for intubation. A chest x-ray post intubation showed ET tube above the christianne, hyperaeration of both lungs with no acute pulmonary infiltrates. She also underwent a CT angiogram of the chest which showed no evidence of PE, however, it showed a few small scattered interstitial infiltrates in the right lung. The patient also had CT scan of the brain which showed no focal or acute intracranial hemorrhage. She received 2 liters of crystalloids in the ED in addition to vancomycin and Zosyn. Her laboratory data is significant for leukocytosis with a WBC of 14.1, however, the patient is afebrile. Lactic acid measured at 1.4 and her urinalysis was compatible with a UTI. She had 59 wbc's with moderate bacteria, positive nitrite and small leukocyte esterase. X-ray of her right humerus showed a subcapital and humeral head fracture. When seen the patient is sedated with Diprivan and on full mechanical ventilation. Current blood pressure is 119 /54 with a pulse of 59. ABG post intubation showed a pH of 7.33, CO2 39, PAO2 442, bicarb 20, saturation 96% on assist control ventilation with a respiratory rate of 18, tidal volume 500, PEEP of 5, FIO2 100%. 09/03 No acute events overnight. Sedated with Fentanyl and intubated. 09/04 Patient remains sedated with Fentanyl and intubated. ABG showed mild resp acidosis on CPAP trials yesterday. 09/05 Patient is sedated with Diprivan, Fentanyl and intubated. On Levophed [address]. Afebrile. Objective Vital Signs Date Time Temp Pulse Resp B/P Pulse Ox O2 Delivery O2 Flow Rate FiO2 09/05/16 07:53 100 45 09/05/16 06:00 79 09/05/16 04:00 97.7 18 101/51 09/02/16 12:50 Ventilator Intake and Output 09/04/16 09/04/16 09/05/16 08:00 16:00 00:00 Intake Total 62 ml 1922 ml 1681 ml Output Total 150 ml 100 ml 150 ml Balance -88 ml 1822 ml 1531 ml Result Diagram: 09/05/16 0557 09/05/16 0557 Other Results Laboratory Tests Test 09/04/16 09/04/16 09/04/16 09/04/16 09:59 12:28 18:26 19:33 White Blood Count 23.1 TH/MM3 Red Blood Count 4.29 MIL/MM3 Hemoglobin 12.2 GM/DL Hematocrit 38.4 % Mean Corpuscular Volume 89.5 FL Mean Corpuscular Hemoglobin 28.4 PG Mean Corpuscular Hemoglobin 31.7 % Concent Red Cell Distribution Width 15.3 % Platelet Count 324 TH/MM3 Mean Platelet Volume 7.3 FL Neutrophils (%) (Auto) 90.7 % Lymphocytes (%) (Auto) 5.1 % Monocytes (%) (Auto) 3.9 % Eosinophils (%) (Auto) 0.1 % Basophils (%) (Auto) 0.2 % Neutrophils # (Auto) 21.0 TH/MM3 Lymphocytes # (Auto) 1.2 TH/MM3 Monocytes # (Auto) 0.9 TH/MM3 Eosinophils # (Auto) 0.0 TH/MM3 Basophils # (Auto) 0.0 TH/MM3 CBC Comment DIFF FINAL Differential Comment Hematology Comments Blood Gas Puncture Site RT RADIAL LT RADIAL Blood Gas Patient Temperature 98.6 98.6 Blood Gas HCO3 18 mmol/L 19 mmol/L Blood Gas Base Excess -7.8 mmol/L -5.4 mmol/L Blood Gas Oxygen Saturation 95 % 96 % Arterial Blood pH 7.25 7.37 Arterial Blood Partial 43 mmHg 33 mmHg Pressure CO2 Arterial Blood Partial 100 mmHg 138 mmHg Pressure O2 Arterial Blood Oxygen Content 15.5 Vol % 14.7 Vol % Arterial Blood 1.2 % 1.4 % Carboxyhemoglobin Arterial Blood Methemoglobin 1.0 % 1.2 % Blood Gas Hemoglobin 11.6 G/DL 10.6 G/DL Oxygen Delivery Device VENTILATOR VENTILATOR Blood Gas Ventilator Setting +01/14/40 AC/18/500/PEEP5 Blood Gas Inspired Oxygen 40 % 50 % Lactic Acid Level 4.5 mmol/L Test 09/05/16 09/05/16 05:57 05:59 White Blood Count 18.7 TH/MM3 Red Blood Count 3.75 MIL/MM3 Hemoglobin 10.8 GM/DL Hematocrit 33.8 % Mean Corpuscular Volume 90.1 FL Mean Corpuscular Hemoglobin 28.9 PG Mean Corpuscular Hemoglobin 32.1 % Concent Red Cell Distribution Width 15.0 % Platelet Count 301 TH/MM3 Mean Platelet Volume 7.4 FL Neutrophils (%) (Auto) 89.9 % Lymphocytes (%) (Auto) 5.2 % Monocytes (%) (Auto) 4.8 % Eosinophils (%) (Auto) 0.0 % Basophils (%) (Auto) 0.1 % Neutrophils # (Auto) 16.8 TH/MM3 Lymphocytes # (Auto) 1.0 TH/MM3 Monocytes # (Auto) 0.9 TH/MM3 Eosinophils # (Auto) 0.0 TH/MM3 Basophils # (Auto) 0.0 TH/MM3 CBC Comment DIFF FINAL Differential Comment Sodium Level 144 MEQ/L Potassium Level 3.1 MEQ/L Chloride Level 111 MEQ/L Carbon Dioxide Level 20.7 MEQ/L Anion Gap 12 MEQ/L Blood Urea Nitrogen 20 MG/DL Creatinine 1.11 MG/DL Estimat Glomerular Filtration 47 ML/MIN Rate Random Glucose 106 MG/DL Calcium Level 7.2 MG/DL Protein Corrected Calcium 8.1 MG/DL Phosphorus Level 4.2 MG/DL Magnesium Level 1.8 MG/DL Total Protein 5.5 GM/DL Lactic Acid Level 3.6 mmol/L Imaging Last Impressions Chest X-Ray 09/04/16 0000 Signed Impressions: Service Date/Time: Sunday, September 04, 2016 17:23 - CONCLUSION: Place a right chest tube with complete clearing of the pneumothorax. Midline structures not properly situated. ET tube above the christianne. Richie Mtz MD Shoulder X-Ray 09/03/16 0000 Signed Impressions: Service Date/Time: August 12:40 - CONCLUSION: There is a displaced fracture through the neck of the proximal humerus. The humeral head is either subluxed or displaced posteriorly. If clinically indicated, a noncontrast CT scan of the right shoulder could be performed for further evaluation. Mushtaq Hernandez MD Head CT 09/02/16 0959 Signed Impressions: Service Date/Time: Friday, September 02, 2016 12:01 - CONCLUSION: 1. No focal or acute intracranial hemorrhage. 2. Bilateral cortical atrophy and chronic white matter changes. 3. Chronic sinus disease. Mushtaq Hernandez MD Humerus X-Ray 09/02/16 0000 Signed Impressions: Service Date/Time: Friday, September 02, 2016 12:25 - CONCLUSION: Fracture subcapital and humeral head. Richie Mtz MD Elbow X-Ray 09/02/16 0000 Signed Impressions: Service Date/Time: Friday, September 02, 2016 12:29 - CONCLUSION: No acute bony injury Richie Mtz MD CT Angiography 09/02/16 0000 Signed Impressions: Service Date/Time: Friday, September 02, 2016 12:01 - CONCLUSION: 1. No evidence of PE. 2. Hyperaeration of the lung miller suggestive of COPD. 3. A few small scattered interstitial infiltrates in the right lung. Mushtaq Hernandez MD Objective Remarks GENERAL: Patient is 81 yo intubated and sedated. SKIN: Warm and dry. HEAD: Normocephalic. EYES: No scleral icterus. No injection or drainage. NECK: Supple, trachea midline. No JVD or lymphadenopathy. Orally intubated. CARDIOVASCULAR: Regular rate and rhythm without murmurs, gallops, or rubs. RESPIRATORY: Breath sounds equal bilaterally. No accessory muscle use. Right CT in place GASTROINTESTINAL: Abdomen soft, non-tender, nondistended. MUSCULOSKELETAL: No cyanosis, or edema. Neuro: Sedated, intubated A/P Assessment and Plan 1. VDRF 2. Altered mental status. 3. Urinary tract infection. 4. Leukocytosis. 5. Right humerus fracture. 6. Status post fall. 7. Hypothyroidism. 8. COPD. 9. Hypertension. 10 Right sided PTX s/p Chest tube placement on 09/04 PLAN Neuro: On fentanyl infusion for sedation and analgesia while intubated. Daily sedation vacation. Monitor neuro status closely. CT brain showed no evidence of any acute intracranial findings. Pulm: Continue with vent support and maintain sats above 92%. Bronchodilators, Solu-Medrol 40 mg IV q.8h. ICU vent bundle, continue CPAP trials as dorie Right CT placed 09/04 for right sided PTX repeat CXR showed resolution of PTX. Check CXR today CV: Wean off Levophed monitor HR and BP and maintain MAP> 65 mmHg. Lactic acid level 3.6 this morning from 4.5 last night. : Monitor renal function, I's and O's, and electrolyte replacement per protocol. Will need K replacement today. On D5NS@42ml/hr GI: On Protonix 40 mg IV daily for GI prophylaxis. start TF-Glucerna 1.5 with goal rate 45ml/hr (tube feeding Pump is not available per nursing staff) ID: Continue with abx(Zosyn) and monitor for signs of infection( fever and WBC) .WBC trending down. Urine cx: E.coli Heme: Monitor CBC. Musk: Orthopedic surgery is following regarding right humerus fracture. Endo: SSI with Accu-Cheks q.6h. for glycemic control Continue with Synthroid 88 mcg daily. TSH: 1.28. GI prophylaxis with Protonix 40 mg daily and DVT prophylaxis with SCDs. Not on chemical anticoagulation prophylaxis for now given extensive ecchymosis of her right upper extremity. For PICC line placement today. Prognosis guarded CCT 30 mins Karthik Cervantes MD Sep 05, 2016 08:15
[2016-09-05] MEDS ORDERED: CALCIUM GLUCONATE INJ 1 GM in SODIUM CHLORIDE 0.9% INJ 100 ML IV ONE (09:00)
[2016-09-05] MEDS: PANTOPRAZOLE SODIUM 40 MG VIAL IV SCH (09:04)
[2016-09-05] MEDS: POTASSIUM CHLOR 20 MEQ PREMIX 100 ML IV PRN ×4 (09:05→18:51)
--- NOTE | 2016-09-05 09:13 | RADRPT ---
EXAM DATE/TIME: 09/05/2016 08:17 [facility] COMPARISON: CHEST SINGLE AP, September 04, 2016, 17:23. INDICATIONS : Shortness of breath MEDICAL HISTORY : Hypertension. Chronic obstructive pulmonary disease. SURGICAL HISTORY : None. ENCOUNTER: Subsequent ACUITY: 3 days PAIN SCORE: Non-responsive. LOCATION: Bilateral chest FINDINGS: Extensive subcutaneous emphysema along the right lateral chest again noted. Right-sided chest tube in place. I do not see a pneumothorax. NG tube courses beneath the diaphragm. Endotracheal tube tip in satisfactory aortic calcifications and cardiomegaly. Left basilar atelectasis. Displaced right proxim al humerus surgical neck fracture and head fracture again noted. CONCLUSION: No significant change has occurred. Efrain South MD on September 05, 2016 at 9:10 Board Certified Radiologist. This report was verified electronically.
[2016-09-05] MEDS: DEXT 5%-NACL 0.9% 1000 ML INJ 1,000 ML IV SCH (12:49)
[2016-09-05] MEDS: LORazepam 2 MG/ML VIAL IV PRN (15:30)
--- NOTE | 2016-09-05 16:51 | RADRPT ---
EXAM DATE/TIME: 09/05/2016 16:30 [facility] COMPARISON: CHEST SINGLE AP, September 05, 2016, 8:17. INDICATIONS : Post Picc Line Placement MEDICAL HISTORY : Hypertension. Chronic obstructive pulmonary disease. SURGICAL HISTORY : None. ENCOUNTER: Subsequent ACUITY: 3 days PAIN SCORE: Non-responsive. LOCATION: Bilateral chest FINDINGS: A single portable frontal view the chest shows an endotracheal tube with the tip 2 cm proximal to the christianne. Nasogastric tube courses off the inferior margin of the film. Left-sided PICC line noted wit h the tip fairly low within the right atrium. Suggest retracting the catheter approximately 3 cm. The right thoracostomy tube noted. No pneumothorax. Subcutaneous air overlies the right chest. Parts at the upper limits of normal in terms of size. Scarring is seen within the left lung base. No discrete infiltrate or effusion. CONCLUSION: 1. Tip of the PIC line fairly low within the right atrium. Suggest retracting it approximately 3 cm. 2. Right thoracostomy tube without pneumothorax. 3. Scarring within the left lung base. Scottie Miller Jr., MD on September 05, 2016 at 16:48 Board Certified Radiologist. This report was verified electronically.
--- NOTE | 2016-09-05 17:52 | RADRPT ---
EXAM DATE/TIME: 09/05/2016 17:23 [facility] COMPARISON: CHEST SINGLE AP, September 05, 2016, 16:30. INDICATIONS : PICC line reposition. MEDICAL HISTORY : Hypertension. Chronic obstructive pulmonary disease. SURGICAL HISTORY : None. ENCOUNTER: Initial ACUITY: 1 day PAIN SCORE: Non-responsive. LOCATION: Bilateral chest FINDINGS: A single portable frontal view the chest shows repositioning of the PICC line with the tip at the cav a atrial junction. The other lines and tubes are unchanged and previously described. No pneumothorax. Fracture to the right humeral head. CONCLUSION: 1. PICC line in good position. Scotite Miller Jr., MD on September 05, 2016 at 17:50 Board Certified Radiologist. This report was verified electronically.
[2016-09-06] VITALS (19 sets, daily range): BP systolic 112–148; BP diastolic 55–91; PULSE 76–116; RESP 18–20; TEMP 97.5–99.3; O2SAT 95–100
[2016-09-06] MEDS: RESP: ALBUTEROL 2.5 MG/IPRATROPIUM 0.5 MG NEB (SCH) INH ×2 (03:42→08:23)
[2016-09-06] MEDS: CHLORHEXIDINE GLUCONATE 2 % 1 PACK (2 CLOTHS) TOP SCH (04:00)
[2016-09-06] MEDS: methylPREDNISolone SOD SUCC 40 MG/1 ML VIAL IV PUSH SCH ×3 (05:43→22:53)
[2016-09-06] MEDS: LEVOTHYROXINE SODIUM 88 MCG TAB PO SCH (05:43)
[2016-09-06] MEDS: PIPERACIL-TAZO 3.375 GM PREMIX 50 ML IV SCH ×4 (05:43→22:53)
[2016-09-06] MEDS: INSULIN NovoLIN REGULAR SUPPLEMENTAL SCALE SQ SCH ×4 (05:44→18:00)
[2016-09-06 07:04] LABS: AUTOMATED NEUTROPHIL # 14.2 TH/MM3 (1.8-7.7); BASOPHIL % 0.2 % (0.0-2.0); HEMATOCRIT 29.9 % (35.0-46.0); LYMPHOCYTE # 0.8 TH/MM3 (1.0-4.8); MEAN CELL VOLUME 88.6 FL (80.0-100.0); MEAN CORPUSCULAR HEMOGLOBIN 28.9 PG (27.0-34.0); MEAN CORPUSCULAR HGB CONC 32.6 % (32.0-36.0); MONO % 3.4 % (0.0-8.0); NEUT % 91.4 % (16.0-70.0); PLATELET COUNT 345 TH/MM3 (150-450); RED BLOOD COUNT 3.38 MIL/MM3 (4.00-5.30); WHITE BLOOD COUNT 15.6 TH/MM3 (4.0-11.0)
[2016-09-06 07:16] LABS: BICARBONATE 20.7 MEQ/L (21.0-32.0); POTASSIUM 4.1 MEQ/L (3.5-5.1)
--- NOTE | 2016-09-06 07:35 | PD.ORT.PN ---
Subjective Subjective Remarks s/p right proximal humerus fx intubated/sedated. has not completed CT scan due to patients health status and instability. Objective Vitals Vital Signs Date Time Temp Pulse Resp B/P Pulse Ox O2 Delivery O2 Flow Rate FiO2 09/06/16 06:00 91 09/06/16 05:53 100 40 09/06/16 04:00 45 09/06/16 04:00 98 09/06/16 04:00 97.5 99 20 148/90 99 09/06/16 03:42 100 40 09/06/16 02:00 99 09/06/16 00:00 45 09/06/16 00:00 101 09/06/16 00:00 98.0 98 18 112/58 96 09/05/16 22:00 96 09/05/16 20:55 96 40 09/05/16 20:00 98.9 99 20 93/45 97 09/05/16 20:00 99 09/05/16 20:00 45 09/05/16 18:00 122 09/05/16 16:19 93 40 09/05/16 16:00 45 09/05/16 16:00 101 09/05/16 16:00 98.0 101 18 76/48 93 09/05/16 14:00 108 09/05/16 12:05 98 45 09/05/16 12:00 110 09/05/16 12:00 98.4 110 10 81/56 98 09/05/16 12:00 40 09/05/16 12:00 108 09/05/16 10:00 105 09/05/16 09:48 40 09/05/16 08:00 83 09/05/16 08:00 45 09/05/16 08:00 96.0 83 18 115/57 100 09/05/16 07:53 100 45 I/O 09/05/16 09/05/16 09/05/16 09/06/16 09/06/16 09/06/16 06:59 14:59 22:59 06:59 14:59 22:59 Intake Total 462 ml 875 ml 562 ml 484 ml Output Total 170 ml 181 ml 270 ml 240 ml Balance 292 ml 694 ml 292 ml 244 ml Intake IV Total 462 ml 815 ml 562 ml 444 ml Tube Irrigant 60 ml 40 ml Output Urine Total 100 ml 125 ml 250 ml 225 ml Chest Tube Drainage Total 70 ml 56 ml 20 ml 15 ml # Bowel Movements 0 0 0 Result Diagram: 09/05/16 0557 09/06/16 0335 Objective Remarks RUE: +restraints. +swelling in hand and fingers. no sling. Assessment & Plan Assessment and Plan 1) right Proximal Humerus Fx -NWB -sling -nonop treatment due to health status. -Dr Le to follow. Matthew Bello Sep 06, 2016 07:35
[2016-09-06 07:53] LABS: HEMO FLAGS AUTO DIFF
[2016-09-06] MEDS ORDERED: BUMETANIDE INJ 1 MG/4 ML VIAL IV PUSH ONE (08:00)
[2016-09-06] MEDS ORDERED: DEXT 5%-NACL 0.45% 1000 ML INJ 1,000 ML IV SCH (08:00)
--- NOTE | 2016-09-06 08:00 | HHI.CCPN ---
Subjective Remarks/Hospital Course The patient is an 81-year-old female with a past medical history of COPD, active smoker, hypertension and hypothyroidism. She presented to [facility] ED with her family for altered mental status and respiratory distress. According to the patient's daughter she fell last Wednesday and broke her right arm. She was taken to [facility] ED and was found to have a right humerus fracture. She was discharged home with an arm sling and advised to follow-up with an orthopedic surgeon. In addition the patient was taking tramadol one tablet every four hours as needed for pain for the past three days. The patient has been combative and agitated at home according to the daughter and when she arrived to the ED she was found to have an O2 saturation in the 80s on room in triage. She was intubated and placed on full mechanical ventilation. The patient was given etomidate and succinylcholine for intubation. A chest x-ray post intubation showed ET tube above the christianne, hyperaeration of both lungs with no acute pulmonary infiltrates. She also underwent a CT angiogram of the chest which showed no evidence of PE, however, it showed a few small scattered interstitial infiltrates in the right lung. The patient also had CT scan of the brain which showed no focal or acute intracranial hemorrhage. She received 2 liters of crystalloids in the ED in addition to vancomycin and Zosyn. Her laboratory data is significant for leukocytosis with a WBC of 14.1, however, the patient is afebrile. Lactic acid measured at 1.4 and her urinalysis was compatible with a UTI. She had 59 wbc's with moderate bacteria, positive nitrite and small leukocyte esterase. X-ray of her right humerus showed a subcapital and humeral head fracture. When seen the patient is sedated with Diprivan and on full mechanical ventilation. Current blood pressure is 119 /54 with a pulse of 59. ABG post intubation showed a pH of 7.33, CO2 39, PAO2 442, bicarb 20, saturation 96% on assist control ventilation with a respiratory rate of 18, tidal volume 500, PEEP of 5, FIO2 100%. 09/03 No acute events overnight. Sedated with Fentanyl and intubated. 09/04 Patient remains sedated with Fentanyl and intubated. ABG showed mild resp acidosis on CPAP trials yesterday. 09/05 Patient is sedated with Diprivan, Fentanyl and intubated. On Levophed [address] place. Afebrile. 09/06 Patient remains sedated with Fentanyl and intubated. Afebrile. Objective Vital Signs Date Time Temp Pulse Resp B/P Pulse Ox O2 Delivery O2 Flow Rate FiO2 09/06/16 07:50 40 09/06/16 07:45 95 09/06/16 06:00 91 09/06/16 04:00 97.5 20 148/90 09/02/16 12:50 Ventilator Intake and Output 09/05/16 09/05/16 09/06/16 08:00 16:00 00:00 Intake Total 462 ml 875 ml 562 ml Output Total 170 ml 181 ml 270 ml Balance 292 ml 694 ml 292 ml Result Diagram: 09/06/16 0335 09/06/16 0335 Other Results Laboratory Tests Test 09/06/16 09/06/16 03:35 05:57 White Blood Count 15.6 TH/MM3 Red Blood Count 3.38 MIL/MM3 Hemoglobin 9.8 GM/DL Hematocrit 29.9 % Mean Corpuscular Volume 88.6 FL Mean Corpuscular Hemoglobin 28.9 PG Mean Corpuscular Hemoglobin 32.6 % Concent Red Cell Distribution Width 15.0 % Platelet Count 345 TH/MM3 Mean Platelet Volume 7.2 FL Neutrophils (%) (Auto) 91.4 % Lymphocytes (%) (Auto) 5.0 % Monocytes (%) (Auto) 3.4 % Eosinophils (%) (Auto) 0.0 % Basophils (%) (Auto) 0.2 % Neutrophils # (Auto) 14.2 TH/MM3 Lymphocytes # (Auto) 0.8 TH/MM3 Monocytes # (Auto) 0.5 TH/MM3 Eosinophils # (Auto) 0.0 TH/MM3 Basophils # (Auto) 0.0 TH/MM3 CBC Comment AUTO DIFF Sodium Level 149 MEQ/L Potassium Level 4.1 MEQ/L Chloride Level 117 MEQ/L Carbon Dioxide Level 20.7 MEQ/L Anion Gap 11 MEQ/L Blood Urea Nitrogen 25 MG/DL Creatinine 1.23 MG/DL Estimat Glomerular Filtration 42 ML/MIN Rate Random Glucose 106 MG/DL Calcium Level 8.3 MG/DL Phosphorus Level 2.8 MG/DL Magnesium Level 2.0 MG/DL Lactic Acid Level 0.9 mmol/L Imaging Last Impressions Chest X-Ray 09/05/16 0000 Signed Impressions: Service Date/Time: Monday, September 05, 2016 17:23 - CONCLUSION: 1. PICC line in good position. Scottie Miller Jr., MD Shoulder X-Ray 09/03/16 0000 Signed Impressions: Service Date/Time: August 12:40 - CONCLUSION: There is a displaced fracture through the neck of the proximal humerus. The humeral head is either subluxed or displaced posteriorly. If clinically indicated, a noncontrast CT scan of the right shoulder could be performed for further evaluation. Mushtaq Hernandez MD Head CT 09/02/16 0959 Signed Impressions: Service Date/Time: Friday, September 02, 2016 12:01 - CONCLUSION: 1. No focal or acute intracranial hemorrhage. 2. Bilateral cortical atrophy and chronic white matter changes. 3. Chronic sinus disease. Mushtaq Hernandez MD Humerus X-Ray 09/02/16 0000 Signed Impressions: Service Date/Time: Friday, September 02, 2016 12:25 - CONCLUSION: Fracture subcapital and humeral head. Richie Mtz MD Elbow X-Ray 09/02/16 0000 Signed Impressions: Service Date/Time: Friday, September 02, 2016 12:29 - CONCLUSION: No acute bony injury Richie Mtz MD CT Angiography 09/02/16 0000 Signed Impressions: Service Date/Time: Friday, September 02, 2016 12:01 - CONCLUSION: 1. No evidence of PE. 2. Hyperaeration of the lung miller suggestive of COPD. 3. A few small scattered interstitial infiltrates in the right lung. Mushtaq Hernandez MD Objective Remarks GENERAL: Patient is 81 yo intubated and sedated. SKIN: Warm and dry. HEAD: Normocephalic. EYES: No scleral icterus. No injection or drainage. NECK: Supple, trachea midline. No JVD or lymphadenopathy. Orally intubated. CARDIOVASCULAR: Regular rate and rhythm without murmurs, gallops, or rubs. RESPIRATORY: Breath sounds equal bilaterally. No accessory muscle use. Right CT in place GASTROINTESTINAL: Abdomen soft, non-tender, nondistended. MUSCULOSKELETAL: No cyanosis, or edema. Neuro: Sedated, intubated A/P Assessment and Plan 1. VDRF 2. Altered mental status. 3. Urinary tract infection. 4. Leukocytosis. 5. Right humerus fracture. 6. Status post fall. 7. Hypothyroidism. 8. COPD. 9. Hypertension. 10 Right sided PTX s/p Chest tube placement on 09/04 PLAN Neuro: On fentanyl infusion for sedation and analgesia while intubated. Daily sedation vacation. Monitor neuro status closely. CT brain showed no evidence of any acute intracranial findings. Check EEG, neuro eval. Pulm: Continue with vent support and maintain sats above 92%. Bronchodilators, decrease Solu-Medrol 40 mg IV q12 ICU vent bundle, continue CPAP trials as dorie Right CT placed 09/04 for right sided PTX repeat CXR showed resolution of PTX. CV: Off Levophed monitor HR and BP and maintain MAP> 65 mmHg. Lactic acid resolved 0.9 this morning. : Monitor renal function, I's and O's, and electrolyte replacement per protocol. Change IVF D5 1/2NS@42ml/hr, add Free water 200ml Q12, monitor sodium level. Diurese with Bumex 05mg IV x1 GI: On Protonix 40 mg IV daily for GI prophylaxis. start TF-Glucerna 1.5 with goal rate 45ml/hr (tube feeding Pump is not available per nursing staff) ID: Continue with abx(Zosyn) and monitor for signs of infection( fever and WBC) .WBC trending down. Urine cx: E.coli Heme: Monitor CBC. Musk: Orthopedic surgery is following regarding right humerus fracture- non-op treatment per ortho. Endo: SSI with Accu-Cheks q.6h. for glycemic control Continue with Synthroid 88 mcg daily. TSH: 1.28. GI prophylaxis with Protonix 40 mg daily and DVT prophylaxis with SCDs. Not on chemical anticoagulation prophylaxis for now given extensive ecchymosis of her right upper extremity. For PICC line placement today.LUE PICC line placed 09/05 Palliative care eval to asses with goals of care Spoke to patient's son Jack Queen patient's son and the healthcare surrogate along with his sisters and updated them on her condition. They agreed to make patient DNR ( Alternative code) they do not want any CPR, chest compression or cardiac resuscitation. CCT 30 mins Karthik Cervantes MD Sep 06, 2016 08:00
[2016-09-06] MEDS: FREE WATER G-TUBE SCH ×2 (09:00→20:50)
[2016-09-06] MEDS: PANTOPRAZOLE SODIUM 40 MG VIAL IV SCH (09:26)
[2016-09-06 12:14] LABS: BANDS 3 % (0-6); CORRECTED NUCLEATED RBC 2 /100 WBC (0-0); NEUTROPHIL # MANUAL DIFF 15.3 TH/MM3 (1.8-7.7); PLATELET ESTIMATE SMEAR NORMAL (NORMAL); PLATELET MORPHOLOGY NORMAL (NORMAL); POLYS (SEG NEUTROPHILS) 95 % (16-70); WBC DIFF SAMPLE 100
[2016-09-06 12:15] LABS: SCAN/DIFF FINAL DIFF MANUAL
[2016-09-06] MEDS: fentaNYL DRIP 250 ML IV SCH (16:25)
[2016-09-06] MEDS: CHLORHEXIDINE 0.12% (ORAL KIT) 15 ML CUP MT SCH (20:49)
--- NOTE | 2016-09-06 21:10 | MB ---
cc: BERNARDINO MCCAIN MD DATE OF CONSULTATION: 09/06/2016. REASON FOR CONSULTATION: Altered mental status and inability to respond and wake up when trying to extubate. HOSPITAL COURSE AND HISTORY OF PRESENT ILLNESS: This was obtained from the medical records as the patient is intubated, sedated and intubated. The patient is accompanied by her daughter at the bedside. She is an 81-year-old female with past medical history of COPD, active smoker hypertension and hypothyroidism who presented to the [facility] Emergency Room for altered mental status and respiratory distress. The patient fell and broke her right arm. The patient was on tramadol one tablet every four hours for pain for the past three days prior to her presentation to the hospital. The patient has been combative and agitated at home. On arrival to the emergency department, her oxygen saturation was in the 80s. She was intubated and placed on ventilation. Her hospital course was smooth and not complicated until yesterday when the attending team wanted to extubate and the patient was not responding to them. She became agitated. She could move all her extremities equally. Her pupils were 2 to 3 briskly reactive to light when she was off the fentanyl. REVIEW OF SYSTEMS: Unable to obtain due to the patient medical condition. PAST MEDICAL HISTORY: Obtained from medical records: 1. COPD. 2. Hypertension. 3. Hypothyroidism. PAST SURGICAL HISTORY: Obtained from medical records - previous hysterectomy. SOCIAL HISTORY: Obtained from medical records - active smoker, nondrinker. Lives with her daughter. FAMILY HISTORY: Noncontributory ALLERGIES: Obtained from medical records - SULFA. MEDICATIONS: 1. Tramadol. 2. Levothyroxine. 3. Lisinopril. 4. Diltiazem. PHYSICAL EXAMINATION: GENERAL: Intubated and sedated. A frail elderly lady. HEAD, EYES, EARS, NOSE, THROAT: Normocephalic and atraumatic. Pupils are 1 to 2 mm sluggishly reacting to light. NECK: No neck rigidity. The neck is supple. No meningeal irritation. No carotid bruits. CARDIOVASCULAR: Regular rate and rhythm. No murmurs. RESPIRATORY: No crackles. No wheezing. Diminished air entry. EXTREMITIES: No cyanosis, no clubbing, no edema. NEUROLOGICAL EXAMINATION: Intubated and sedated. Pupils are 1 to 2 mm, sluggishly reacting to light. The patient responds to painful stimulation by wincing, trying to sit up and flexing her arms and responds to tickling the soles of the feet by withdrawing the feet and the legs. DIAGNOSTIC IMAGING: CT of the head without contrast done on 09/02/2016 revealed no acute or focal intracranial hemorrhage. bilateral cortical atrophy, chronic white matter changes and chronic sinus disease. DIAGNOSTIC IMPRESSION: - Encephalopathy. Possible etiology is brain hypoxia / hypoperfusion / ischemia. PLAN: 1. MRI brain without contrast. 2. EEG. 3. DVT prophylaxis. 4. GI prophylaxis. Thank you for the opportunity to participate in the care of your patient. MD SWETHA Anglin/SUKHJINDER /5:19 PM /9:00 PM LANIE
[2016-09-07] VITALS (19 sets, daily range): BP systolic 113–143; BP diastolic 62–88; PULSE 73–110; RESP 18–22; TEMP 97.9–99.1; O2SAT 96–100
[2016-09-07] MEDS: fentaNYL DRIP 250 ML IV SCH ×2 (01:35→15:33)
[2016-09-07 03:45] LABS: AUTOMATED NEUTROPHIL # 15.8 TH/MM3 (1.8-7.7); BASOPHIL % 0.2 % (0.0-2.0); HEMATOCRIT 29.3 % (35.0-46.0); LYMPHOCYTE # 1.2 TH/MM3 (1.0-4.8); MEAN CELL VOLUME 87.6 FL (80.0-100.0); MEAN CORPUSCULAR HEMOGLOBIN 29.1 PG (27.0-34.0); MEAN CORPUSCULAR HGB CONC 33.2 % (32.0-36.0); MONO % 3.4 % (0.0-8.0); NEUT % 89.4 % (16.0-70.0); PLATELET COUNT 309 TH/MM3 (150-450); RED BLOOD COUNT 3.35 MIL/MM3 (4.00-5.30); RED CELL DISTRIBUTION WIDTH 15.1 % (11.6-17.2); WHITE BLOOD COUNT 17.6 TH/MM3 (4.0-11.0)
[2016-09-07 03:46] LABS: HEMO FLAGS AUTO DIFF
[2016-09-07] MEDS: CHLORHEXIDINE GLUCONATE 2 % 1 PACK (2 CLOTHS) TOP SCH (04:00)
[2016-09-07 04:04] LABS: MAGNESIUM 1.9 MG/DL (1.5-2.5); POTASSIUM 3.8 MEQ/L (3.5-5.1)
[2016-09-07 04:40] LABS: PLATELET ESTIMATE SMEAR NORMAL (NORMAL); PLATELET MORPHOLOGY NORMAL (NORMAL); SCAN/DIFF AUTO DIFF CONFIRMED
[2016-09-07] MEDS: LEVOTHYROXINE SODIUM 88 MCG TAB PO SCH (05:53)
[2016-09-07] MEDS: INSULIN NovoLIN REGULAR SUPPLEMENTAL SCALE SQ SCH ×3 (05:53→12:00)
[2016-09-07] MEDS: methylPREDNISolone SOD SUCC 40 MG/1 ML VIAL IV PUSH SCH ×2 (05:53→20:53)
[2016-09-07] MEDS: PIPERACIL-TAZO 3.375 GM PREMIX 50 ML IV SCH ×4 (05:53→23:36)
[2016-09-07] MEDS: CHLORHEXIDINE 0.12% (ORAL KIT) 15 ML CUP MT SCH ×2 (08:00→20:53)
--- NOTE | 2016-09-07 08:16 | HHI.CCPN ---
Subjective Remarks/Hospital Course The patient is an 81-year-old female with a past medical history of COPD, active smoker, hypertension and hypothyroidism. She presented to [facility] ED with her family for altered mental status and respiratory distress. According to the patient's daughter she fell last Wednesday and broke her right arm. She was taken to [facility] ED and was found to have a right humerus fracture. She was discharged home with an arm sling and advised to follow-up with an orthopedic surgeon. In addition the patient was taking tramadol one tablet every four hours as needed for pain for the past three days. The patient has been combative and agitated at home according to the daughter and when she arrived to the ED she was found to have an O2 saturation in the 80s on room in triage. She was intubated and placed on full mechanical ventilation. The patient was given etomidate and succinylcholine for intubation. A chest x-ray post intubation showed ET tube above the christianne, hyperaeration of both lungs with no acute pulmonary infiltrates. She also underwent a CT angiogram of the chest which showed no evidence of PE, however, it showed a few small scattered interstitial infiltrates in the right lung. The patient also had CT scan of the brain which showed no focal or acute intracranial hemorrhage. She received 2 liters of crystalloids in the ED in addition to vancomycin and Zosyn. Her laboratory data is significant for leukocytosis with a WBC of 14.1, however, the patient is afebrile. Lactic acid measured at 1.4 and her urinalysis was compatible with a UTI. She had 59 wbc's with moderate bacteria, positive nitrite and small leukocyte esterase. X-ray of her right humerus showed a subcapital and humeral head fracture. When seen the patient is sedated with Diprivan and on full mechanical ventilation. Current blood pressure is 119 /54 with a pulse of 59. ABG post intubation showed a pH of 7.33, CO2 39, PAO2 442, bicarb 20, saturation 96% on assist control ventilation with a respiratory rate of 18, tidal volume 500, PEEP of 5, FIO2 100%. 09/03 No acute events overnight. Sedated with Fentanyl and intubated. 09/04 Patient remains sedated with Fentanyl and intubated. ABG showed mild resp acidosis on CPAP trials yesterday. 09/05 Patient is sedated with Diprivan, Fentanyl and intubated. On Levophed [address]. Afebrile. 09/06 Patient remains sedated with Fentanyl and intubated. Afebrile. 09/07 No acute events overnight. Sedated and intubated. Afebrile. For MRI brain and EEG today per neurology. Objective Vital Signs Date Time Temp Pulse Resp B/P Pulse Ox O2 Delivery O2 Flow Rate FiO2 09/07/16 08:00 98 40 09/07/16 06:00 84 09/07/16 04:00 98.3 20 120/62 Intake and Output 09/06/16 09/06/16 09/06/16 07:59 15:59 23:59 Intake Total 484 ml 732 ml 870 ml Output Total 240 ml 451 ml 260 ml Balance 244 ml 281 ml 610 ml Result Diagram: 09/07/16 0325 09/07/16 0325 Other Results Laboratory Tests Test 09/07/16 03:25 White Blood Count 17.6 TH/MM3 Red Blood Count 3.35 MIL/MM3 Hemoglobin 9.7 GM/DL Hematocrit 29.3 % Mean Corpuscular Volume 87.6 FL Mean Corpuscular Hemoglobin 29.1 PG Mean Corpuscular Hemoglobin 33.2 % Concent Red Cell Distribution Width 15.1 % Platelet Count 309 TH/MM3 Mean Platelet Volume 6.9 FL Neutrophils (%) (Auto) 89.4 % Lymphocytes (%) (Auto) 7.0 % Monocytes (%) (Auto) 3.4 % Eosinophils (%) (Auto) 0.0 % Basophils (%) (Auto) 0.2 % Neutrophils # (Auto) 15.8 TH/MM3 Lymphocytes # (Auto) 1.2 TH/MM3 Monocytes # (Auto) 0.6 TH/MM3 Eosinophils # (Auto) 0.0 TH/MM3 Basophils # (Auto) 0.0 TH/MM3 CBC Comment AUTO DIFF Differential Comment AUTO DIFF CONFIRMED Platelet Estimate NORMAL Platelet Morphology Comment NORMAL Sodium Level 146 MEQ/L Potassium Level 3.8 MEQ/L Chloride Level 114 MEQ/L Carbon Dioxide Level 22.0 MEQ/L Anion Gap 10 MEQ/L Blood Urea Nitrogen 26 MG/DL Creatinine 1.14 MG/DL Estimat Glomerular Filtration 46 ML/MIN Rate Random Glucose 96 MG/DL Calcium Level 8.1 MG/DL Phosphorus Level 2.3 MG/DL Magnesium Level 1.9 MG/DL Imaging Last Impressions Chest X-Ray 09/05/16 0000 Signed Impressions: Service Date/Time: Monday, September 05, 2016 17:23 - CONCLUSION: 1. PICC line in good position. Scottie Miller Jr., MD Shoulder X-Ray 09/03/16 0000 Signed Impressions: Service Date/Time: August 12:40 - CONCLUSION: There is a displaced fracture through the neck of the proximal humerus. The humeral head is either subluxed or displaced posteriorly. If clinically indicated, a noncontrast CT scan of the right shoulder could be performed for further evaluation. Mushtaq Hernandez MD Head CT 09/02/16 0959 Signed Impressions: Service Date/Time: Friday, September 02, 2016 12:01 - CONCLUSION: 1. No focal or acute intracranial hemorrhage. 2. Bilateral cortical atrophy and chronic white matter changes. 3. Chronic sinus disease. Mushtaq Hernandez MD Humerus X-Ray 09/02/16 0000 Signed Impressions: Service Date/Time: Friday, September 02, 2016 12:25 - CONCLUSION: Fracture subcapital and humeral head. Richie Mtz MD Elbow X-Ray 09/02/16 0000 Signed Impressions: Service Date/Time: Friday, September 02, 2016 12:29 - CONCLUSION: No acute bony injury Richie Mtz MD CT Angiography 09/02/16 0000 Signed Impressions: Service Date/Time: Friday, September 02, 2016 12:01 - CONCLUSION: 1. No evidence of PE. 2. Hyperaeration of the lung miller suggestive of COPD. 3. A few small scattered interstitial infiltrates in the right lung. Mushtaq Hernandez MD Objective Remarks GENERAL: Patient is 81 yo intubated and sedated. SKIN: Warm and dry. HEAD: Normocephalic. EYES: No scleral icterus. No injection or drainage. NECK: Supple, trachea midline. No JVD or lymphadenopathy. Orally intubated. CARDIOVASCULAR: Regular rate and rhythm without murmurs, gallops, or rubs. RESPIRATORY: Breath sounds equal bilaterally. No accessory muscle use. Right CT in place GASTROINTESTINAL: Abdomen soft, non-tender, nondistended. MUSCULOSKELETAL: No cyanosis, or edema. Neuro: Sedated, intubated A/P Assessment and Plan 1. VDRF 2. Encephalopathy 3. Urinary tract infection. 4. Leukocytosis. 5. Right humerus fracture. 6. Status post fall. 7. Hypothyroidism. 8. COPD. 9. Hypertension. 10 Right sided PTX s/p Chest tube placement on 09/04 PLAN Neuro: On fentanyl infusion for sedation and analgesia while intubated. Daily sedation vacation. Monitor neuro status closely. CT brain showed no evidence of any acute intracranial findings. Neurology is following. For MRI brain and EEG today Pulm: Continue with vent support and maintain sats above 92%. Bronchodilators, Solu-Medrol 40 mg IV q12 ICU vent bundle, continue CPAP trials as dorie Right CT placed 09/04 for right sided PTX repeat CXR showed resolution of PTX. Check CXR CV: Monitor HR and BP and maintain MAP> 65 mmHg. Lactic acid resolved 0.9 this morning. : Monitor renal function, I's and O's, and electrolyte replacement per protocol. On Free water 200ml Q12, monitor sodium level. d/c IVF GI: On Protonix 40 mg IV daily for GI prophylaxis. Glucerna 1.5 with goal rate 45ml/hr ID: Continue with abx(Zosyn) and monitor for signs of infection( fever and WBC) .WBC trending down. Urine cx: E.coli Heme: Monitor CBC. Musk: Orthopedic surgery is following regarding right humerus fracture- non-op treatment per ortho. Endo: SSI with Accu-Cheks q.6h. for glycemic control Continue with Synthroid 88 mcg daily. TSH: 1.28. GI prophylaxis with Protonix 40 mg daily and DVT prophylaxis with SCDs. Not on chemical anticoagulation prophylaxis for now given extensive ecchymosis of her right upper extremity. LUE PICC line placed 09/05 Palliative care eval to asses with goals of care 09/06 Spoke to patient's son Jack Queen(healthcare surrogate) along with his sisters and updated them on her condition. They agreed to make patient DNR ( Alternative code) they do not want any CPR, chest compression or cardiac resuscitation. CCT 30 mins Karthik Cervantes MD Sep 07, 2016 08:16
[2016-09-07] MEDS: PANTOPRAZOLE SODIUM 40 MG VIAL IV SCH (08:19)
[2016-09-07] MEDS: FREE WATER G-TUBE SCH ×2 (08:19→20:54)
--- NOTE | 2016-09-07 09:00 | RADRPT ---
EXAM DATE/TIME: 09/07/2016 08:23 [facility] COMPARISON: CHEST SINGLE AP, September 05, 2016, 17:23. INDICATIONS : VDRF MEDICAL HISTORY : Chronic obstructive pulmonary disease. SURGICAL HISTORY : None. ENCOUNTER: Initial ACUITY: 4 - 6 days PAIN SCORE: Non-responsive. LOCATION: Bilateral chest FINDINGS: Right sided chest tube is again seen. A very tiny right apical pneumothorax is noted and along the me dial right lung base. Left PICC line tip overlies the SVC. Aortic calcification and cardiomegaly. Sof t tissue emphysema seen along the right chest. No consolidation. CONCLUSION: Small right pneumothorax. Efrain South MD on September 07, 2016 at 8:58 Board Certified Radiologist. This report was verified electronically.
--- NOTE | 2016-09-07 10:38 | PD.CONS ---
Consult Service Palliative Care . Consult Requested By Dr. Cervantes . Primary Care Physician Omayra Bryant . Reason for Consultation a. To assist with evaluation and management of symptoms including: pain; dyspnea; encephalopathy b. To assist medical decision maker(s) with: better understanding of current medical conditions; weighing benefits/burdens of medical treatment options; making medical treatment decisions. . HPI History of Present Illness Ms. Queen is an 81-year-old female active smoker with a known past medical history of renal cell cancer; COPD; hypothyroidism; and hypertension who was brought by her family to the [facility] Emergency Department on 09/02/16 because of respiratory distress and altered mental status. The patient's rather brisk decline began on 08/30/16 when the patient fell and fractured her right arm. She was taken to [facility] emergency room where x- rays confirmed a fractured humerus. The patient was discharged home and instructed to follow-up with an orthopedist. The patient was using tramadol 50 mgone tablet every 4 hours as needed for pain from the fracture. The orthopedic follow-up had not taken place and the night prior to the current ER presentation, the patient's daughter noted the patient to be confused with almost incoherent speech. She was also intermittently combative. She was also struggling to breathe. The daughter also noted that the patient would have episodes where her head would flop back and her eyes would roll back. Though the patient is a long-term smoker, she has never been on home 02 or been on nebulizer treatments or pulmonary meds. She has not been hospitalized for respiratory problems. She has not had any significant pain syndromes prior to the recent fall and fracture. She has not been on any type of regular analgesics prior to the recent fracture. Her arm pain since the fracture had been significantly worse with any movement. In the emergency department initial vital signs revealed the following... Temperature 98.5; pulse 71; respiratory rate 18; blood pressure 127/78; pulse oximetry was initially in the 80s. Physical examination in the emergency department noted the following: Patient was poorly responsive, frail appearing and in severe respiratory distress. Extensive ecchymoses were noted on the right upper extremity with swelling. There was also bruising on the left side of the face and the temporal area. The patient was using accessory muscles for respiration and there was diminished air movement bilaterally. There was jugular venous distention on the sitting position. The patient was quite anxious appearing. Examination of the eyes, ENT, cardiovascular, GI, were otherwise unremarkable Initial diagnostic studies revealed the following: * CBC showed WBC 14.1; hemoglobin 13.6; platelet count 404 * Coagulation profile showed PT 10.3; INR 0.9; * Chemistry panel showed sodium 134; potassium 4.2; chloride 101; CO2 24.3; anion gap 9; BUN 12; creatinine 0.85; glucose 104; lactic acid 1.4; calcium 8.6 * Liver function studies show total bilirubin 0.5; AST 19; ALT 20; alkaline phosphatase 75; ammonia less than 10; total protein 7.0; albumin 2.8 * Cardiac serology showed total CK 201; CK-MB 1.2; CK-MB percent 0.6%; troponin less than 0.02 * TSH was 1.28 * Basic urine drug screen was negative for opiates/barbiturate/amphetamine/benzo /cocaine/cannabinoids * EtOH level was less than 3 years * Urinalysis revealed cloudy urine with moderate occult blood; positive nitrites ; small leukocyte esterase; 59 WBCs; and moderate bacteria * EKG showed a normal sinus rhythm with a left bundle branch block and left axis deviation. There is first-degree AV block * Chest x-ray showed hyperaeration of both lungs with no acute pulmonary infiltrates * Arterial blood gases showed pH 7.33; PCO2 39; PaO2 442; bicarbonate 20; base excess -5 on the ventilator at 100% FiO2 * CT angiogram showed no evidence of pulmonary embolus. The CT, however, showed a few small scattered interstitial infiltrates in the right lung. * CT imaging of the brain showed no significant findings. * X-ray of the right humerus showed a subcapital and humeral head fracture. As the patient was ventilating and oxygenating poorly in the emergency department, intubation was felt to be necessary. This was accomplished after discussion with the patient's daughter. Shortly after intubation the patient was started on intravenous Zosyn and vancomycin to cover for possible sepsis. A right external jugular central line was placed. She was also given 2 L of IV fluid. Following sedation for intubation purposes the patient's blood pressure dropped to 58 systolic. Propofol was stopped and the pressure slowly improved. Critical care was consulted. The patient was transferred to the medical intensive care unit. A fentanyl infusion was started for sedation and analgesia while intubated. Bronchodilators and intravenous steroids were started. On 09/04/16 a pneumothorax was noted and chest tube was placed in the right side. Neurology was consulted for the altered mental status. Most likely etiology was felt to be encephalopathy from one or a combination of hypoxia / hypoperfusion / ischemia Orthopedics was consulted for the arm fracture. She was not felt to be a surgical candidate. Non -operative treatment was recommended - sling for comfort / PT for passive ROM and pendulums. The patent was found to have a prolapsed bladder and urology was consulted. No surgical intervention was recommended. Urology felt the patient might benefit from a pessary that could be arranged for by post-discharge f/u with gynecology. Ms. Queen remains in the medical intensive care unit sedated and intubated. An MRI of the brain performed today revealed atrophic changes but no evidence of infarction, mass, etc. White blood count which peaked at 26.8 is now down to 17.6. Hemoglobin has dropped to 9.7. Her urine culture grew out Escherichia coli. She was able to tolerate several hours of CPAP trial just two days ago, but failed after less than an hour today. . Function/Cognitive Trajectory Ms. Queen had been relatively sedentary, but otherwise reasonably well up until the recent fall with humeral fracture. She has been using a walker to ambulate for a few years, but daughter attributes the need mostly to deconditioning. She has been able to take care of all her own ADLs. She normally spends most of her day in a chair reading. She has been very hard of hearing and family normally uses a dry maker board to communicate with her. She has lost about 50-60 lbs of weight over the last 5 years. The weight loss has occurred since the of her and family attributes the weight loss to her no longer bothering to prepare regular meals. She remained mentally sharp. The patient did have a history of renal cancer that was treated surgically about 25 years ago without any evidence to date of recurrence. . Review of Systems Constitutional: COMPLAINS OF: Fatigue, Weight loss, Change in appetite, Pain, Generalized weakness Eyes: COMPLAINS OF: Vision loss Ears, nose, mouth, throat: COMPLAINS OF: Hearing loss, DENIES: Epistaxis Respiratory: COMPLAINS OF: Shortness of breath Cardiovascular: COMPLAINS OF: Dyspnea on Exertion Gastrointestinal: DENIES: Constipation, Diarrhea, Nausea, Vomiting, Anorexia Musculoskeletal: COMPLAINS OF: Stiffness, DENIES: Back pain, Neck pain Hematologic/Lymphatics: COMPLAINS OF: Bruising Immunologic/Allergic: DENIES: Eczema Neurologic: COMPLAINS OF: Abnormal gait, Poor Balance, DENIES: Seizures Psychiatric: COMPLAINS OF: Confusion (Patient is unable to provide own ROS. ROS taken as well as possible from medical record and available family member.) Past Family Social History Coded Allergies: Sulfa (Verified Allergy, Severe, 09/02/16) Past Medical History * Hypertension * Renal cell cancer (treated surgically about 25 years ago) * COPD * Hypothyroidism * Prolapsed bladder . . Past Surgical History * Several "baldder tuck" procedures for prolapse * Hysterectomy * Surgical excision of a renal cancer. . Reported Medications Prehospital medications included the following... Tramadol (Tramadol HCl) 50 Mg Tab 50 Mg PO Q4H PRN Levothyroxine (Levothyroxine Sodium) 88 Mcg Tab 88 Mcg PO DAILY Lisinopril 20 Mg Tab 20 Mg PO DAILY Diltiazem CD 24 HR 240 Mg Caper 240 Mg PO DAILY . Current Medications Medications (Trade) Dose Ordered Sig/Inga Route Start Time Stop Time Status Last Admin IV Flush 2 ml 2 ml UNSCH PRN IVF 09/02/16 10:00 (Diprivan 1000 Mg/100ml Inj) 100 ml @ 0 mls/hr TITRATE IV 09/02/16 10:15 09/05/16 06:17 (Protonix Inj) 40 mg DAILY IV 09/02/16 13:00 09/07/16 08:19 Miscellaneous Information 1 Q361D XX 09/02/16 13:00 09/03/16 12:29 (Chlorhexidine 2% Cloth) 3 pack Taper DAILY@04 TOP 09/03/16 04:00 08/30/17 03:59 09/07/16 04:00 Chlorhexidine Gluconate 3 pack 3 pack UNSCH PRN TOP 09/02/16 13:00 (fentaNYL DRIP) 250 ml @ 0 mls/hr TITRATE IV 09/02/16 13:00 09/07/16 01:35 (D50w (Vial) Inj) 25 ml UNSCH PRN IV PUSH 09/02/16 13:00 (Glucagon Inj) 1 mg UNSCH PRN OTHER 09/02/16 13:00 Insulin Human Regular 1 1 Q6HR SQ 09/02/16 13:00 09/02/16 18:26 (Zosyn 3.375 Gm Premix) 50 ml @ 100 mls/hr Q6H IV 09/02/16 17:00 09/07/16 05:53 (Synthroid) 88 mcg DAILY@0600 PO 09/03/16 06:00 09/07/16 05:53 Lorazepam 2 mg 2 mg Q4H PRN IV 09/03/16 03:00 09/05/16 15:30 Potassium Chloride 100 ml @ 50 mls/hr Q2H PRN IV 09/03/16 08:45 (KCl 20 Meq Premix Inj) 100 ml @ 50 mls/hr Q2H PRN IV 09/03/16 08:45 09/05/16 18:51 Potassium Chloride 40 meq 40 meq UNSCH PRN PO/TUBE 09/03/16 08:45 Potassium Chloride 100 ml @ 25 mls/hr UNSCH PRN IV 09/03/16 08:45 Potassium Chloride 100 ml @ 50 mls/hr Q2H PRN IV 09/03/16 08:45 (Magnesium Sulfate Inj/NS Inj) 100 ml @ 50 mls/hr UNSCH PRN IV 09/03/16 08:45 Magnesium Oxide 800 mg 800 mg UNSCH PRN PO 09/03/16 08:45 (Magnesium Sulfate Inj/NS Inj) 100 ml @ 50 mls/hr UNSCH PRN IV 09/03/16 08:45 Potassium Phosphate 2000 mg 2,000 mg Q4H PRN PO 09/03/16 08:45 (Sodium Phosphate Inj/NS 250 ml Inj) 250 ml @ 42 mls/hr UNSCH PRN IV 09/03/16 08:45 09/03/16 10:31 (KCl 40 Meq/30 ml Liq) 40 meq UNSCH PRN PO/TUBE 09/03/16 08:45 Potassium Phosphate 2000 mg 2,000 mg UNSCH PRN PO/TUBE 09/03/16 08:45 (Potassium Phosphate Inj/NS 250 ml Inj) 260 ml @ 42 mls/hr UNSCH PRN IV 09/03/16 08:45 (Brethine Inj) 1 mg UNSCH PRN SQ 09/04/16 11:15 (Free Water) 200 ml Q12HR G-TUBE 1/1/17 09:00 09/07/16 08:19 (Peridex 0.12% Liq) 15 ml BID@08,20 MT 09/06/16 20:00 09/07/16 08:00 (SoluMEDROL INJ) 40 mg Q12HR IV PUSH 09/07/16 21:00 . Family History * The patient's mother at approximately age 83 from breast cancer * The patient's father in his early 70s from a myocardial infarction * A sister at age 68 from brain cancer. * The patient had 9 siblings. 6 of cancer mostly from age 62 age 68 . Substance Use Tobacco: Active smoker. Per family, she usually smoked between one half and one pack per day Alcohol: Nondrinker. Prescription med abuse: No known abuse Illicits: No known use of illicits . Psychosocial History Ms. Queen is originally from [facility]. She has lived in [place] for approximately 50 years. She has a high school education. 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 The patient was once. Her approximately 5 years ago after 60 years of marriage. The couple had 5 children3 daughters and 2 sons. One daughter approximately 2 years ago from some type of lung disease. One of the sons, Zaid, is estranged from family and they do not have contact information. The patient's daughter Eleonora has been living with the patient in [place]. Daughter Flor lives in [facility]. Son Jack lives in [place]. The patient has 8 grandchildren. Only 3 of her 9 siblings survive. The patient normally spends her day in a chair reading. . Spiritual/Cultural Factors The patient is L[employer]. Her advent is quite important to her. Family believes she would appreciate a director fraud visit. . Living Will: Copy in medical record Health Care Surrogate: Copy in medical record Durable Power of Marketing Communications Leader: Never completed Date completed: The living will document which includes information regarding health care surrogate designation was completed on 03/12/1999 . Health Care Surrogate(s): The patient has designated her son, Jack Queen, as health care surrogate. . Documented care wishes: The patient has completed a fairly standard [place] living will. It indicates she would not want life prolonging measures should she have a terminal condition , end-stage condition, or persistent vegetative state. She would also not want to have artificial nutrition/hydration in such cases. . Today's verbally stated goals: Patient is unable to verbally stated her own health care goals/preferences. It is unclear if she will be able to do so in the future. . Family/friends goals: Because there is no clear underlying terminal illness, the patient's health care surrogate wants to continue with aggressive care at this time. Daughters are leaning more toward transitioning to comfort measures. . Ethical and Legal Issues The patient is currently incapacitated to make her own health care decisions. It is unclear if she will ever be able to regain capacity. Her son is her designated health care surrogate but he is speaking frequently with his 2 sisters. The patient has another son, Zaid, who is contact information is unknown and who has been estranged from his mother and the rest of the family. . Physical Exam Vital Signs Date Time Temp Pulse Resp B/P Pulse Ox O2 Delivery O2 Flow Rate FiO2 09/07/16 08:00 84 09/07/16 08:00 45 09/07/16 08:00 98 40 09/07/16 08:00 98.4 81 20 127/80 98 09/07/16 06:00 84 09/07/16 04:37 97 40 09/07/16 04:00 40 09/07/16 04:00 81 09/07/16 04:00 98.3 81 20 120/62 98 09/07/16 02:00 73 09/07/16 00:54 97 40 09/07/16 00:00 80 09/07/16 00:00 45 09/07/16 00:00 98.2 84 22 118/81 97 09/06/16 22:00 97 09/06/16 20:32 99 40 09/06/16 20:00 93 09/06/16 20:00 45 09/06/16 20:00 97.8 93 20 112/55 99 09/06/16 18:00 76 09/06/16 16:20 98 40 09/06/16 16:00 90 09/06/16 16:00 98.3 90 18 116/72 98 09/06/16 16:00 45 09/06/16 14:00 88 09/06/16 12:00 45 09/06/16 12:00 99.2 97 18 139/91 99 09/06/16 12:00 97 09/06/16 11:39 99 40 . 09/06/16 09/07/16 19:00 07:00 Intake Total 732 ml 1454 ml Output Total 451 ml 570 ml Balance 281 ml 884 ml Intake IV Total 503 ml 1111 ml Tube Feeding 29 ml 143 ml Other 200 ml 200 ml Output Urine Total 425 ml 550 ml Chest Tube Drainage Total 26 ml 20 ml # Bowel Movements 0 . Exam CONSTITUTIONAL/GENERAL: This is an adequately nourished frail appearing patient who is intubated and mechanically ventilated in the medical intensive care unit bed. Fentanyl has been discontinued approximately 30 minutes before my visit. The patient is somewhat restless but is unable to communicate and does not track me. TUBES/LINES/DRAINS: Orogastric tube; orotracheal tube; Morse catheter; left internal jugular central line; PICC line; SCDs SKIN: No jaundice, rashes. Ecchymoses on right side of face and right upper extremity.. No wounds seen anteriorly. Skin temperature appropriate. Not diaphoretic. HEAD: Atraumatic. Normocephalic. EYES: Pupils equal and round and reactive. Extraocular motions intact. No scleral icterus. No injection or drainage. Fundi not examined. ENT: Unable to formally assess hearing due to level of responsiveness. Nose without bleeding or purulent drainage. Throat without visible erythema, exudates , masses, or lesions though difficult to evaluate due to intubations. NECK: Trachea midline. Supple, nontender. No palpable thyroid enlargement or nodularity. CARDIOVASCULAR: Regular rate and rhythm without murmurs, gallops, or rubs. Jugular venous distention is noted. Peripheral pulses faint but symmetric. RESPIRATORY/CHEST: Symmetric, unlabored respirations. Breath sounds equal bilaterally. An intermittent wheeze is heard. Chest tube on the right. GASTROINTESTINAL: Abdomen soft, non-tender, nondistended. No hepato-splenomegaly , or palpable masses. No guarding. Bowel sounds present. GENITOURINARY: Without palpable bladder distension. Morse catheter in place. MUSCULOSKELETAL: Extremities without clubbing, cyanosis, or edema. No joint tenderness or effusion noted. No calf tenderness. No mottling or clubbing. LYMPHATICS: No palpable cervical or supraclavicular adenopathy. NEUROLOGICAL: At time of my first visit, patient was sedated with fentanyl and was not stirring to voice or exam. At time of my second visit, patient was off fentanyl for approximately 20-30 minutes. There were spontaneous movements but she was not tracking me. No spontaneous movements of the right arm. PSYCHIATRIC: Unable to adequately evaluate due to level of responsiveness and because she is nonverbal/intubated. . Diagnostic Tests Laboratory Laboratory Tests Test 09/04/16 09/04/16 09/04/16 09/05/16 12:28 18:26 19:33 05:57 Blood Gas Puncture Site RT RADIAL LT RADIAL Blood Gas Patient Temperature 98.6 98.6 Blood Gas HCO3 18 mmol/L 19 mmol/L (22-26) (22-26) Blood Gas Base Excess -7.8 mmol/L -5.4 mmol/L (-2-2) (-2-2) Blood Gas Oxygen Saturation 95 % (90-100) 96 % (90-100) Arterial Blood pH 7.25 7.37 (7.380-7.420) (7.380-7.420) Arterial Blood Partial 43 mmHg (38-42) 33 mmHg (38-42) Pressure CO2 Arterial Blood Partial 100 mmHg 138 mmHg Pressure O2 (61-120) (61-120) Arterial Blood Oxygen Content 15.5 Vol % 14.7 Vol % (12.0-20.0) (12.0-20.0) Arterial Blood 1.2 % (0-4) 1.4 % (0-4) Carboxyhemoglobin Arterial Blood Methemoglobin 1.0 % (0-2) 1.2 % (0-2) Blood Gas Hemoglobin 11.6 G/DL 10.6 G/DL (12.0-16.0) (12.0-16.0) Oxygen Delivery Device VENTILATOR VENTILATOR Blood Gas Ventilator Setting +5/10/40 AC/18/500/PEEP5 Blood Gas Inspired Oxygen 40 % 50 % Lactic Acid Level 4.5 mmol/L (0.4-2.0) White Blood Count 18.7 TH/MM3 (4.0-11.0) Red Blood Count 3.75 MIL/MM3 (4.00-5.30) Hemoglobin 10.8 GM/DL (11.6-15.3) Hematocrit 33.8 % (35.0-46.0) Mean Corpuscular Volume 90.1 FL (80.0-100.0) Mean Corpuscular Hemoglobin 28.9 PG (27.0-34.0) Mean Corpuscular Hemoglobin 32.1 % Concent (32.0-36.0) Red Cell Distribution Width 15.0 % (11.6-17.2) Platelet Count 301 TH/MM3 (150-450) Mean Platelet Volume 7.4 FL (7.0-11.0) Neutrophils (%) (Auto) 89.9 % (16.0-70.0) Lymphocytes (%) (Auto) 5.2 % (9.0-44.0) Monocytes (%) (Auto) 4.8 % (0.0-8.0) Eosinophils (%) (Auto) 0.0 % (0.0-4.0) Basophils (%) (Auto) 0.1 % (0.0-2.0) Neutrophils # (Auto) 16.8 TH/MM3 (1.8-7.7) Lymphocytes # (Auto) 1.0 TH/MM3 (1.0-4.8) Monocytes # (Auto) 0.9 TH/MM3 (0-0.9) Eosinophils # (Auto) 0.0 TH/MM3 (0-0.4) Basophils # (Auto) 0.0 TH/MM3 (0-0.2) CBC Comment DIFF FINAL Differential Comment Sodium Level 144 MEQ/L (136-145) Potassium Level 3.1 MEQ/L (3.5-5.1) Chloride Level 111 MEQ/L (98-107) Carbon Dioxide Level 20.7 MEQ/L (21.0-32.0) Anion Gap 12 MEQ/L (5-15) Blood Urea Nitrogen 20 MG/DL (7-18) Creatinine 1.11 MG/DL (0.50-1.00) Estimat Glomerular Filtration 47 ML/MIN (>89) Rate Random Glucose 106 MG/DL (74-106) Calcium Level 7.2 MG/DL (8.5-10.1) Protein Corrected Calcium 8.1 MG/DL (8.5-10.1) Phosphorus Level 4.2 MG/DL (2.5-4.9) Magnesium Level 1.8 MG/DL (1.5-2.5) Total Protein 5.5 GM/DL (6.4-8.2) Test 09/05/16 09/06/16 09/06/16 09/07/16 05:59 03:35 05:57 03:25 Lactic Acid Level 3.6 mmol/L 0.9 mmol/L (0.4-2.0) (0.4-2.0) White Blood Count 15.6 TH/MM3 17.6 TH/MM3 (4.0-11.0) (4.0-11.0) Red Blood Count 3.38 MIL/MM3 3.35 MIL/MM3 (4.00-5.30) (4.00-5.30) Hemoglobin 9.8 GM/DL 9.7 GM/DL (11.6-15.3) (11.6-15.3) Hematocrit 29.9 % 29.3 % (35.0-46.0) (35.0-46.0) Mean Corpuscular Volume 88.6 FL 87.6 FL (80.0-100.0) (80.0-100.0) Mean Corpuscular Hemoglobin 28.9 PG 29.1 PG (27.0-34.0) (27.0-34.0) Mean Corpuscular Hemoglobin 32.6 % 33.2 % Concent (32.0-36.0) (32.0-36.0) Red Cell Distribution Width 15.0 % 15.1 % (11.6-17.2) (11.6-17.2) Platelet Count 345 TH/MM3 309 TH/MM3 (150-450) (150-450) Mean Platelet Volume 7.2 FL 6.9 FL (7.0-11.0) (7.0-11.0) Neutrophils (%) (Auto) 91.4 % 89.4 % (16.0-70.0) (16.0-70.0) Lymphocytes (%) (Auto) 5.0 % 7.0 % (9.0-44.0) (9.0-44.0) Monocytes (%) (Auto) 3.4 % (0.0-8.0) 3.4 % (0.0-8.0) Eosinophils (%) (Auto) 0.0 % (0.0-4.0) 0.0 % (0.0-4.0) Basophils (%) (Auto) 0.2 % (0.0-2.0) 0.2 % (0.0-2.0) Neutrophils # (Auto) 14.2 TH/MM3 15.8 TH/MM3 (1.8-7.7) (1.8-7.7) Lymphocytes # (Auto) 0.8 TH/MM3 1.2 TH/MM3 (1.0-4.8) (1.0-4.8) Monocytes # (Auto) 0.5 TH/MM3 0.6 TH/MM3 (0-0.9) (0-0.9) Eosinophils # (Auto) 0.0 TH/MM3 0.0 TH/MM3 (0-0.4) (0-0.4) Basophils # (Auto) 0.0 TH/MM3 0.0 TH/MM3 (0-0.2) (0-0.2) CBC Comment AUTO DIFF AUTO DIFF Differential Total Cells 100 Counted Neutrophils % (Manual) 95 % (16-70) Band Neutrophils % 3 % (0-6) Lymphocytes % 1 % (9-44) Monocytes % 1 % (0-8) Neutrophils # (Manual) 15.3 TH/MM3 (1.8-7.7) Nucleated Red Blood Cells 2 /100 WBC (0-0) Differential Comment FINAL DIFF AUTO DIFF MANUAL CONFIRMED Platelet Estimate NORMAL NORMAL (NORMAL) (NORMAL) Platelet Morphology Comment NORMAL NORMAL (NORMAL) (NORMAL) Sodium Level 149 MEQ/L 146 MEQ/L (136-145) (136-145) Potassium Level 4.1 MEQ/L 3.8 MEQ/L (3.5-5.1) (3.5-5.1) Chloride Level 117 MEQ/L 114 MEQ/L (98-107) (98-107) Carbon Dioxide Level 20.7 MEQ/L 22.0 MEQ/L (21.0-32.0) (21.0-32.0) Anion Gap 11 MEQ/L (5-15) 10 MEQ/L (5-15) Blood Urea Nitrogen 25 MG/DL (7-18) 26 MG/DL (7-18) Creatinine 1.23 MG/DL 1.14 MG/DL (0.50-1.00) (0.50-1.00) Estimat Glomerular Filtration 42 ML/MIN (>89) 46 ML/MIN (>89) Rate Random Glucose 106 MG/DL 96 MG/DL (74-106) (74-106) Calcium Level 8.3 MG/DL 8.1 MG/DL (8.5-10.1) (8.5-10.1) Phosphorus Level 2.8 MG/DL 2.3 MG/DL (2.5-4.9) (2.5-4.9) Magnesium Level 2.0 MG/DL 1.9 MG/DL (1.5-2.5) (1.5-2.5) . Result Diagram: 09/07/16 0325 09/07/16 0325 Microbiology * Urine culture of 09/02/16 grew out Escherichia coli * Blood cultures of 09/02/16 showed no growth . Imaging Last Impressions Chest X-Ray 09/05/16 0000 Signed Impressions: Service Date/Time: Monday, September 05, 2016 17:23 - CONCLUSION: 1. PICC line in good position. Scottie Miller Jr., MD Shoulder X-Ray 09/03/16 0000 Signed Impressions: Service Date/Time: August 12:40 - CONCLUSION: There is a displaced fracture through the neck of the proximal humerus. The humeral head is either subluxed or displaced posteriorly. If clinically indicated, a noncontrast CT scan of the right shoulder could be performed for further evaluation. Mushtaq Hernandez MD Head CT 09/02/16 0959 Signed Impressions: Service Date/Time: Friday, September 02, 2016 12:01 - CONCLUSION: 1. No focal or acute intracranial hemorrhage. 2. Bilateral cortical atrophy and chronic white matter changes. 3. Chronic sinus disease. Mushtaq Hernandez MD Humerus X-Ray 09/02/16 0000 Signed Impressions: Service Date/Time: Friday, September 02, 2016 12:25 - CONCLUSION: Fracture subcapital and humeral head. Richie Mtz MD Elbow X-Ray 09/02/16 0000 Signed Impressions: Service Date/Time: Friday, September 02, 2016 12:29 - CONCLUSION: No acute bony injury Richie Mtz MD CT Angiography 09/02/16 0000 Signed Impressions: Service Date/Time: Friday, September 02, 2016 12:01 - CONCLUSION: 1. No evidence of PE. 2. Hyperaeration of the lung miller suggestive of COPD. 3. A few small scattered interstitial infiltrates in the right lung. Mushtaq Hernandez MD . Procedures * Intubation/mechanical ventilation * PICC line placement * Chest tube placement * Central line placement . . Patient/Family Conference Present at Family Conference: I spoke with the patient's daughter, Flor Crouch, in person for approximately 50 minutes. I also had a separate conversation via phone with the patient's health care surrogate, her son Jack.. Family Conference Time (mins): 65 (Family conference time includes both the in person conversation with the patient's daughter and the telephone conversation with the patient's son.) Family Conference Location: Consult Room, Telephone Issues Discussed: * Palliative care role, purpose, approach * Additional medical, psychosocial, and spiritual history * Patients general health, functional status, and cognitive changes in the months leading up to the current hospitalization * Family understanding of the current medical problems * Family understanding of prognosis * Patients goals of care as best understood from advance directives and/or conversations and/or values * Current medical treatment options and benefits/burdens of those options * Likely scenarios comparing ongoing aggressive care with a transition to comfort measures only * Questions answered to the best of my ability * Palliative care contact information provided . Assessment and Plan Disease Oriented Problem List: (1) Respiratory failure (2) COPD (chronic obstructive pulmonary disease) (3) Sepsis (4) UTI (urinary tract infection) (5) Altered mental status (6) Pneumothorax (7) Humerus fracture (8) Renal cell cancer (9) Hypertension (10) Anemia Symptom Scale: (1) Pain 0-10 Scale: Unable to quantify Comment: Patient is intubated and nonverbal. She is unable to locate, quantify , qualify her pain. Family reports that her main pain syndrome is from her fractured arm. This pain will be quite severe particularly with movement. Family reports there were no pain syndromes prior to her fall. Here in the intensive care unit, other sources of pain could include the following: Prolonged bedbound status; urethral catheterization; vascular catheterizations; orotracheal intubation. . (2) Dyspnea 0-10 Scale: Unable to quantify Comment: Patient is currently intubated and mechanically ventilated. She apparently tolerated CPAP trial for several hours on 09/05/16 but was not able to tolerate an hour today. . Pertinent Non-Medical Issues Psychosocial: Good psychosocial support from her 3 local children. Spiritual: Patient is [employer]. Family reports advent is an important part of her life. Per family request we will have a director fraud visit. Legal: The patient has a living will and a hard copy is on the chart. The designated health care surrogate is her Bruce. Ethical issues impacting care: The patient is currently incapacitated to make her own health care decisions. It is unclear if she will be able to regain such capacity. . Important Contacts * Jack Queen (son and the health care surrogate) * Flor Crouch (daughter) [phone] . Prognosis Ms Queen is 81 years old and is a current smoker but, per family, had been doing reasonably well in terms of her functional status. She used a walker to ambulate but was able to take care of all her ADLs. She was very hard of hearing and otherwise was cognitively sharp. She had a very sudden decline since experiencing a fall in which she fractured her right humerus. It is felt that her initial altered mental status might have been due to a combination of her illness and tramadol usage. At this point, her encephalopathy is probably multifactorial. CT imaging of the chest showed small infiltrates so her pulmonary status is probably pneumonia on chronic mild COPD. Her urinary tract infection is probably resolved by now. As her COPD was relatively mild (no history of respiratory hospitalization; no home O2 usage; no regular use of pulmonary medications), there is really no other obvious underlying terminal illness. As cancers prevalent in the family, as the patient herself underwent treatment for kidney cancer, and as there is been a 50-60 pound weight loss over the last years, an occult malignancy is certainly a possibility. Family reports, however, that the patient sees her doctor on a regular basis and there has been no reported concern for a new cancer or recurrence. . Code Status: Alternative Code Plan == CODE STATUS: Alternate code == Decision-making: The patient is incapacitated to make her own health care decisions and it does not appear likely that she will regain such capacity in the near future if at all. Her son, Jack, is the designated health care surrogate. He visits regularly, has a good understanding of the patient's illness, and has accepted the role of health care surrogate. Though he is the list surrogate, he is in close communication with his 2 sisterKyle and Eleonora -- and includes them in the decision-making process. The other sibling, Zaid, is estranged from the family and there is no contact information. == Goals of medical treatment: As there is no clear-cut underlying terminal illness, Jack, the health care surrogate, is wanting to give his mother every chance to improve. He wants aggressive care to continue. His sisters, apparently, are more ready to transition to "comfort measures." The most immediate question is what with the patient want at this time if we can medically wean her and then she developed some respiratory distress again which she want to be reintubated or not? Most likely, if the patient would need reintubation, she would probably need tracheostomy. Jack plans to talk to both sisters before making a final decision but he would opt for reintubation and wants the tracheostomy. He, personally, had been intubated and thought the process of whole time feeling like he was gagging and choking. I recommend we wait until the family gives us the final word on the reintubation decision before we extubate her. Hopefully they will inform us by 09/08/2016. == Pain: Multiple possible sources of pain are noted above. Patient has been on fentanyl for sedation and pain control. It appears to work. Keeping the patient comfortable while preventing oversedation and preventing possible delirium from opiates will be challenging. I would recommend that fentanyl continued to be the drug of choice for pain. If she does not need the fentanyl for sedation on the ventilator, would use the fentanyl on a when necessary basis particularly for her fracture pain. == Dyspnea: Patient's pneumothorax is resolving with chest tube placement. She has apparent pneumonia on top of some underlying mild COPD. Her ability to tolerate C Pap trials is varying greatly from day to day. At this point, while we are trying to get her more awake and medically wean her, I would steer away from opiates or benzos or other sedating medications to help with any dyspnea unless truly necessary. == Encephalopathy: As noted above this is likely multifactorial. Some of the agitation when off sedation could conceivably be secondary to her IV steroids. As noted above, opiate usage itself may have caused some delirium and altered mental status. == Palliative care will continue to follow to assist with symptom management and to further clarify goals of medical treatment as the clinical case evolves. . Time Spent Total Floor Time (mins): 95 (Total floor time included chart review, patient examination, above-referenced family conference, and collaboration with slicer machine operator) Face to Face Time (mins): 10 >50% Counseling/Coord of Care: Yes Thank you for the opportunity to participate in the care of Ms. Queen. . Attestation To help prompt me to consider important information that might be impacting today's encounter and assessment, information from prior notes written by myself or my colleagues may have been "brought forward" into today's note. My signature on this note, however, is an attestation that I personally performed the exam, history, and/or decision-making noted today, and, unless otherwise indicated, the interactions with patient, family, and staff as well as the review of records all occurred today. I also attest that the listed assessment and stated plan reflect my best clinical judgment today based on the combination of historical information, prior notes, and today's exam/ interactions. When time spent is documented, it refers only to time spent today by the signer, or if indicated, combined time spent today by collaborating physician/nurse practitioner. . Kranthi Coon MD Sep 07, 2016 10:38
--- NOTE | 2016-09-07 14:30 | RADRPT ---
EXAM DATE/TIME: 09/07/2016 13:58 [facility] COMPARISON: CT BRAIN W/O CONTRAST, September 02, 2016, 12:01. INDICATIONS : Encephalopathy. MEDICAL HISTORY : Renal ca. SURGICAL HISTORY : Hysterectomy. ENCOUNTER: Subsequent ACUITY: 4-6 days PAIN SCORE: Nonresponsive. LOCATION: Brain. TECHNIQUE: Multiplanar, multisequence MRI of the brain was performed without contrast. FINDINGS: There is no evidence for acute infarction on diffusion weighted images. No masses are seen. There is moderate diffuse atrophy and patchy moderate flair hyperintensity in the bilateral subcortical white matter, centrum semiovale and periventricular white matter most likely on the basis of chronic microv ascular ischemic disease. 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 CONCLUSION: Moderate atrophy and white matter disease. Efrain South MD on September 07, 2016 at 14:27 Board Certified Radiologist. This report was verified electronically.
--- NOTE | 2016-09-07 20:02 | MG ---
cc: [facility] Lab No: Date: Age: Sex: F Race: ELECTROENCEPHALOGRAM NUMBER [id number] INTRODUCTION Cortical atrophy. Respiratory distress. Fentanyl. DESCRIPTION Some diffuse 5 Hz slowing is noted. Muscle artifact is seen. Hyperventilation is not performed. Some bitemporal slowing is noted. Some blinking artifact is seen. Photic stimulation was performed without significant posterior driving. Some almost triphasic appearing waves are noted throughout much of the recording. It is unclear at epoch 93 if there could be a spike slow wave occurring over the left frontal head region versus a blink artifact. IMPRESSION Abnormal EEG looks quite metabolic but is unclear if there is a sharp spike slow wave over the left frontal head region at one point and if seizures . I would recommend a repeat EEG with a little better technical quality and the patient may be at increased risk for seizures here. MD SHANE Briceño/KK /7:02 PM /7:56 PM
[2016-09-07] MEDS ORDERED: levETIRAcetam 1000 MG INJ 100 ML IV ONE (20:21)
[2016-09-08] VITALS (19 sets, daily range): BP systolic 93–150; BP diastolic 54–114; PULSE 80–110; RESP 14–22; TEMP 97.5–99.6; O2SAT 98–100
--- NOTE | 2016-09-08 01:09 | RADRPT ---
EXAM DATE/TIME: 09/08/2016 00:46 [facility] COMPARISON: CHEST SINGLE AP, September 07, 2016, 8:23. INDICATIONS : Short of breath. MEDICAL HISTORY : Chronic obstructive pulmonary disease. SURGICAL HISTORY : None. ENCOUNTER: Subsequent ACUITY: 4 - 6 days PAIN SCORE: Non-responsive. LOCATION: Bilateral chest FINDINGS: A single portable frontal view the chest shows a right thoracostomy tube with subcutaneous air overly ing the right chest. A tiny apical pneumothorax persists. Endotracheal tube tip is 3 cm cephalad to t he christianne. Left-sided PICC line and nasogastric tube in good position. A developing opacity is seen w ithin the right lung base. This is a new finding. No effusions observed. Heart is normal in size. Rig ht humeral head fracture. This is stable. CONCLUSION: 1. Stable tiny right apical pneumothorax. 2. Developing opacity within the right lung base potentially related to an infectious infiltrate. Scottie Miller Jr., MD on September 08, 2016 at 1:05 Board Certified Radiologist. This report was verified electronically.
[2016-09-08] MEDS: CHLORHEXIDINE GLUCONATE 2 % 1 PACK (2 CLOTHS) TOP SCH (04:00)
[2016-09-08] MEDS: PIPERACIL-TAZO 3.375 GM PREMIX 50 ML IV SCH ×4 (05:19→23:42)
[2016-09-08] MEDS: LEVOTHYROXINE SODIUM 88 MCG TAB PO SCH (05:19)
[2016-09-08] MEDS: INSULIN NovoLIN REGULAR SUPPLEMENTAL SCALE SQ SCH ×5 (05:20→23:45)
[2016-09-08 05:23] LABS: AUTOMATED NEUTROPHIL # 17.4 TH/MM3 (1.8-7.7); BASOPHIL % 0.2 % (0.0-2.0); HEMATOCRIT 33.6 % (35.0-46.0); LYMPH % 8.2 % (9.0-44.0); LYMPHOCYTE # 1.6 TH/MM3 (1.0-4.8); MEAN CELL VOLUME 87.3 FL (80.0-100.0); MEAN CORPUSCULAR HEMOGLOBIN 28.5 PG (27.0-34.0); MEAN CORPUSCULAR HGB CONC 32.7 % (32.0-36.0); MONO % 3.7 % (0.0-8.0); NEUT % 87.9 % (16.0-70.0); PLATELET COUNT 354 TH/MM3 (150-450); RED BLOOD COUNT 3.85 MIL/MM3 (4.00-5.30); RED CELL DISTRIBUTION WIDTH 15.2 % (11.6-17.2); WHITE BLOOD COUNT 19.8 TH/MM3 (4.0-11.0)
[2016-09-08 05:38] LABS: HEMO FLAGS AUTO DIFF
[2016-09-08 05:45] LABS: BICARBONATE 25.5 MEQ/L (21.0-32.0); POTASSIUM 3.9 MEQ/L (3.5-5.1)
[2016-09-08 08:12] LABS: CORRECTED NUCLEATED RBC 1 /100 WBC (0-0); METAMYELOCYTES 1 % (0-1); MYELOCYTES 3 % (0-0); NEUTROPHIL # MANUAL DIFF 16.8 TH/MM3 (1.8-7.7); POLYS (SEG NEUTROPHILS) 81 % (16-70); SCAN/DIFF FINAL DIFF MANUAL; WBC DIFF SAMPLE 100
[2016-09-08 08:13] LABS: KERATOCYTES OCC (NORMAL); PLATELET ESTIMATE SMEAR NORMAL (NORMAL); PLATELET MORPHOLOGY NORMAL (NORMAL)
--- NOTE | 2016-09-08 08:21 | HHI.CCPN ---
Subjective Remarks/Hospital Course The patient is an 81-year-old female with a past medical history of COPD, active smoker, hypertension and hypothyroidism. She presented to [facility] ED with her family for altered mental status and respiratory distress. According to the patient's daughter she fell last Wednesday and broke her right arm. She was taken to [facility] ED and was found to have a right humerus fracture. She was discharged home with an arm sling and advised to follow-up with an orthopedic surgeon. In addition the patient was taking tramadol one tablet every four hours as needed for pain for the past three days. The patient has been combative and agitated at home according to the daughter and when she arrived to the ED she was found to have an O2 saturation in the 80s on room in triage. She was intubated and placed on full mechanical ventilation. The patient was given etomidate and succinylcholine for intubation. A chest x-ray post intubation showed ET tube above the christianne, hyperaeration of both lungs with no acute pulmonary infiltrates. She also underwent a CT angiogram of the chest which showed no evidence of PE, however, it showed a few small scattered interstitial infiltrates in the right lung. The patient also had CT scan of the brain which showed no focal or acute intracranial hemorrhage. She received 2 liters of crystalloids in the ED in addition to vancomycin and Zosyn. Her laboratory data is significant for leukocytosis with a WBC of 14.1, however, the patient is afebrile. Lactic acid measured at 1.4 and her urinalysis was compatible with a UTI. She had 59 wbc's with moderate bacteria, positive nitrite and small leukocyte esterase. X-ray of her right humerus showed a subcapital and humeral head fracture. When seen the patient is sedated with Diprivan and on full mechanical ventilation. Current blood pressure is 119 /54 with a pulse of 59. ABG post intubation showed a pH of 7.33, CO2 39, PAO2 442, bicarb 20, saturation 96% on assist control ventilation with a respiratory rate of 18, tidal volume 500, PEEP of 5, FIO2 100%. 09/03 No acute events overnight. Sedated with Fentanyl and intubated. 09/04 Patient remains sedated with Fentanyl and intubated. ABG showed mild resp acidosis on CPAP trials yesterday. 09/05 Patient is sedated with Diprivan, Fentanyl and intubated. On Levophed [address]. Afebrile. 09/06 Patient remains sedated with Fentanyl and intubated. Afebrile. 09/07 No acute events overnight. Sedated and intubated. Afebrile. For MRI brain and EEG today per neurology. 09/08 Patient is sedated with Fentanyl and intubated. Had air leak in CT when repositioned, CXR from early this morning showed stable tint right apical PTX. MRI brain from yesterday showed atrophy. Objective Vital Signs Date Time Temp Pulse Resp B/P Pulse Ox O2 Delivery O2 Flow Rate FiO2 09/08/16 06:00 80 09/08/16 04:13 100 40 09/08/16 04:00 97.9 20 126/86 Intake and Output 09/07/16 09/07/16 09/08/16 08:00 16:00 00:00 Intake Total 584 ml 640 ml 836 ml Output Total 310 ml 825 ml 260 ml Balance 274 ml -185 ml 576 ml Result Diagram: 09/08/16 0445 09/08/16 0445 Other Results Laboratory Tests Test 09/08/16 04:45 White Blood Count 19.8 TH/MM3 Red Blood Count 3.85 MIL/MM3 Hemoglobin 11.0 GM/DL Hematocrit 33.6 % Mean Corpuscular Volume 87.3 FL Mean Corpuscular Hemoglobin 28.5 PG Mean Corpuscular Hemoglobin 32.7 % Concent Red Cell Distribution Width 15.2 % Platelet Count 354 TH/MM3 Mean Platelet Volume 7.1 FL Neutrophils (%) (Auto) 87.9 % Lymphocytes (%) (Auto) 8.2 % Monocytes (%) (Auto) 3.7 % Eosinophils (%) (Auto) 0.0 % Basophils (%) (Auto) 0.2 % Neutrophils # (Auto) 17.4 TH/MM3 Lymphocytes # (Auto) 1.6 TH/MM3 Monocytes # (Auto) 0.7 TH/MM3 Eosinophils # (Auto) 0.0 TH/MM3 Basophils # (Auto) 0.0 TH/MM3 CBC Comment AUTO DIFF Sodium Level 140 MEQ/L Potassium Level 3.9 MEQ/L Chloride Level 108 MEQ/L Carbon Dioxide Level 25.5 MEQ/L Anion Gap 7 MEQ/L Blood Urea Nitrogen 29 MG/DL Creatinine 1.05 MG/DL Estimat Glomerular Filtration 50 ML/MIN Rate Random Glucose 122 MG/DL Calcium Level 8.1 MG/DL Phosphorus Level 3.0 MG/DL Imaging Last Impressions Chest X-Ray 09/07/16 0000 Signed Impressions: Service Date/Time: Wednesday, September 07, 2016 08:23 - CONCLUSION: Small right pneumothorax. Efrain South MD Brain MRI 09/07/16 0000 Signed Impressions: Service Date/Time: Wednesday, September 07, 2016 13:58 - CONCLUSION: Moderate atrophy and white matter disease. Efrain South MD Shoulder X-Ray 09/03/16 0000 Signed Impressions: Service Date/Time: August 12:40 - CONCLUSION: There is a displaced fracture through the neck of the proximal humerus. The humeral head is either subluxed or displaced posteriorly. If clinically indicated, a noncontrast CT scan of the right shoulder could be performed for further evaluation. Mushtaq Hernandez MD Head CT 09/02/16 0959 Signed Impressions: Service Date/Time: Friday, September 02, 2016 12:01 - CONCLUSION: 1. No focal or acute intracranial hemorrhage. 2. Bilateral cortical atrophy and chronic white matter changes. 3. Chronic sinus disease. Mushtaq Hernandez MD Humerus X-Ray 09/02/16 0000 Signed Impressions: Service Date/Time: Friday, September 02, 2016 12:25 - CONCLUSION: Fracture subcapital and humeral head. Richie Mtz MD Elbow X-Ray 09/02/16 0000 Signed Impressions: Service Date/Time: Friday, September 02, 2016 12:29 - CONCLUSION: No acute bony injury Richie Mtz MD CT Angiography 09/02/16 0000 Signed Impressions: Service Date/Time: Friday, September 02, 2016 12:01 - CONCLUSION: 1. No evidence of PE. 2. Hyperaeration of the lung miller suggestive of COPD. 3. A few small scattered interstitial infiltrates in the right lung. Mushtaq Hernandez MD Objective Remarks GENERAL: Patient is 81 yo intubated and sedated. SKIN: Warm and dry. HEAD: Normocephalic. EYES: No scleral icterus. No injection or drainage. NECK: Supple, trachea midline. No JVD or lymphadenopathy. Orally intubated. CARDIOVASCULAR: Regular rate and rhythm without murmurs, gallops, or rubs. RESPIRATORY: Breath sounds equal bilaterally. No accessory muscle use. Right CT in place GASTROINTESTINAL: Abdomen soft, non-tender, nondistended. MUSCULOSKELETAL: No cyanosis, or edema. Neuro: Sedated, intubated A/P Assessment and Plan 1. VDRF 2. Encephalopathy 3. Urinary tract infection. 4. Leukocytosis. 5. Right humerus fracture. 6. Status post fall. 7. Hypothyroidism. 8. COPD. 9. Hypertension. 10 Right sided PTX s/p Chest tube placement on 09/04 PLAN Neuro: On fentanyl infusion for sedation and analgesia while intubated. Daily sedation vacation. Monitor neuro status closely. CT brain showed no evidence of any acute intracranial findings. Neurology is following. 09/07: MRI brain: Atrophy no acute process. On Keppra 1000mg Q12 Pulm: Continue with vent support and maintain sats above 92%. Bronchodilators, Solu-Medrol 40 mg IV q12 ICU vent bundle, CPAP trials as dorie Right CT placed 09/04 for right sided PTX repat CXR showed resolution of PTX CXR this morning stable tiny right apical PTX ( patient had small air leak when repositioned) CV: Monitor HR and BP and maintain MAP> 65 mmHg. Lactic acid resolved 0.9 this morning. : Monitor renal function, I's and O's, and electrolyte replacement per protocol. On Free water 200ml Q12, monitor sodium level. GI: On Protonix 40 mg IV daily for GI prophylaxis. Glucerna 1.5 with goal rate 45ml/hr ID: Continue with abx(Zosyn) and monitor for signs of infection( fever and WBC) check sputum cx 09/02 Urine cx: E.coli' 09/02 BC: NGTD Heme: Monitor CBC. [place]: Orthopedic surgery is following regarding right humerus fracture- non-op treatment per ortho. Endo: SSI with Accu-Cheks q.6h. for glycemic control Continue with Synthroid 88 mcg daily. TSH: 1.28. GI prophylaxis with Protonix 40 mg daily and DVT prophylaxis with SCDs. Not on chemical anticoagulation prophylaxis for now given extensive ecchymosis of her right upper extremity. LUE PICC line placed 09/05 Palliative care on case 09/06 Spoke to patient's son Jack Queen(healthcare surrogate) along with his sisters and updated them on her condition. They agreed to make patient DNR ( Alternative code) they do not want any CPR, chest compression or cardiac resuscitation. CCT 30 mins Karthik Cervantes MD Sep 08, 2016 08:21
[2016-09-08] MEDS: CHLORHEXIDINE 0.12% (ORAL KIT) 15 ML CUP MT SCH ×2 (08:29→21:00)
[2016-09-08] MEDS: PANTOPRAZOLE SODIUM 40 MG VIAL IV SCH (08:30)
[2016-09-08] MEDS: FREE WATER G-TUBE SCH ×2 (08:30→21:00)
[2016-09-08] MEDS: methylPREDNISolone SOD SUCC 40 MG/1 ML VIAL IV PUSH SCH ×2 (08:30→21:00)
[2016-09-08] MEDS ORDERED: BUMETANIDE INJ 1 MG/4 ML VIAL IV PUSH ONE (09:00)
[2016-09-08] MEDS: levETIRAcetam 1000 MG INJ 100 ML IV SCH ×2 (09:05→21:00)
--- NOTE | 2016-09-08 15:09 | HHI.PR ---
Review/Management Diagnosis DIAGNOSTIC IMAGING: - CT of the head without contrast done on 09/02/2016 revealed no acute or focal intracranial hemorrhage. bilateral cortical atrophy, chronic white matter changes and chronic sinus disease. - MRI brain with no acute intracranial abnormality - EEG with possible left frontal sharp waves?potential for seizures DIAGNOSTIC IMPRESSION: - Encephalopathy. - Abnormal EEG ? seizures Plan PLAN: - I ordered a bolus of Keppra on 09/07/2016, given at night - Keppra 1gm bid - DVT prophylaxis. - GI prophylaxis. - Will repeat EEG tomorrow Diagnosis/Plan: Subjective Subjective Comments Opens eyes spontaneously Responds to pain by withdrawing UE&LE Moves her extremities to light stimulation of both feet Pupils are 2-3 mm, react equally to light Plantar reflexes are b/l upgoing. EEG with possible abnormal left frontal sharp discharges and potential for seizure activity MRI with no acute intracranial abnormality Active Medications Current Medications Medications (Trade) Dose Ordered Sig/Inga Route Start Time Stop Time Status Last Admin IV Flush 2 ml 2 ml UNSCH PRN IVF 09/02/16 10:00 (Diprivan 1000 Mg/100ml Inj) 100 ml @ 0 mls/hr TITRATE IV 09/02/16 10:15 09/05/16 06:17 (Protonix Inj) 40 mg DAILY IV 09/02/16 13:00 09/08/16 08:30 Miscellaneous Information 1 Q361D XX 09/02/16 13:00 09/03/16 12:29 (Chlorhexidine 2% Cloth) Taper DAILY@04 TOP 09/03/16 04:00 08/30/17 03:59 09/08/16 04:00 Chlorhexidine Gluconate 3 pack 3 pack UNSCH PRN TOP 09/02/16 13:00 (fentaNYL DRIP) 250 ml @ 0 mls/hr TITRATE IV 09/02/16 13:00 09/07/16 15:33 (D50w (Vial) Inj) 25 ml UNSCH PRN IV PUSH 09/02/16 13:00 (Glucagon Inj) 1 mg UNSCH PRN OTHER 09/02/16 13:00 Insulin Human Regular 1 1 Q6HR SQ 09/02/16 13:00 09/02/16 18:26 (Zosyn 3.375 Gm Premix) 50 ml @ 100 mls/hr Q6H IV 09/02/16 17:00 09/08/16 11:32 Levothyroxine Sodium 88 mcg 88 mcg DAILY@0600 PO 09/03/16 06:00 09/08/16 05:19 Potassium Chloride 100 ml @ 50 mls/hr Q2H PRN IV 09/03/16 08:45 (KCl 20 Meq Premix Inj) 100 ml @ 50 mls/hr Q2H PRN IV 09/03/16 08:45 09/05/16 18:51 Potassium Chloride 40 meq 40 meq UNSCH PRN PO/TUBE 09/03/16 08:45 Potassium Chloride 100 ml @ 25 mls/hr UNSCH PRN IV 09/03/16 08:45 Potassium Chloride 100 ml @ 50 mls/hr Q2H PRN IV 09/03/16 08:45 (Magnesium Sulfate Inj/NS Inj) 100 ml @ 50 mls/hr UNSCH PRN IV 09/03/16 08:45 Magnesium Oxide 800 mg 800 mg UNSCH PRN PO 09/03/16 08:45 (Magnesium Sulfate Inj/NS Inj) 100 ml @ 50 mls/hr UNSCH PRN IV 09/03/16 08:45 Potassium Phosphate 2000 mg 2,000 mg Q4H PRN PO 09/03/16 08:45 (Sodium Phosphate Inj/NS 250 ml Inj) 250 ml @ 42 mls/hr UNSCH PRN IV 09/03/16 08:45 09/03/16 10:31 (KCl 40 Meq/30 ml Liq) 40 meq UNSCH PRN PO/TUBE 09/03/16 08:45 Potassium Phosphate 2000 mg 2,000 mg UNSCH PRN PO/TUBE 09/03/16 08:45 (Potassium Phosphate Inj/NS 250 ml Inj) 260 ml @ 42 mls/hr UNSCH PRN IV 09/03/16 08:45 (Brethine Inj) 1 mg UNSCH PRN SQ 09/04/16 11:15 (Free Water) 200 ml Q12HR G-TUBE 09/06/16 09:00 09/08/16 08:30 (Peridex 0.12% Liq) 15 ml BID@08,20 MT 09/06/16 20:00 09/08/16 08:29 Methylprednisolone Sodium Succinate 40 mg 40 mg Q12HR IV PUSH 09/07/16 21:00 09/08/16 08:30 (Keppra 1000 Mg Inj) 100 ml @ 400 mls/hr Q12HR IV 09/08/16 09:00 09/08/16 09:05 Allergies Allergies Coded Allergies Sulfa (Verified Allergy, Severe, 09/02/16) Exam I&O / VS 09/07/16 09/07/16 09/08/16 15:00 23:00 07:00 Intake Total 640 ml 836 ml 668 ml Output Total 825 ml 260 ml 270 ml Balance -185 ml 576 ml 398 ml Intake IV Total 460 ml 348 ml 369 ml Tube Feeding 80 ml 288 ml 269 ml Other 100 ml 200 ml 30 ml Output Urine Total 750 ml 250 ml 250 ml Chest Tube Drainage Total 75 ml 10 ml 20 ml # Bowel Movements 0 1 0 Vital Signs Date Time Temp Pulse Resp B/P Pulse Ox O2 Delivery O2 Flow Rate FiO2 09/08/16 14:00 103 09/08/16 12:00 104 09/08/16 12:00 40 09/08/16 12:00 98.0 104 14 119/61 100 09/08/16 11:50 100 40 09/08/16 10:00 104 09/08/16 08:19 40 09/08/16 08:19 100 40 09/08/16 08:00 40 09/08/16 08:00 110 09/08/16 08:00 97.5 110 19 150/114 100 09/08/16 06:00 80 09/08/16 04:13 100 40 09/08/16 04:00 40 09/08/16 04:00 97.9 97 20 126/86 100 09/08/16 04:00 99 09/08/16 02:00 96 09/08/16 01:52 98 40 09/08/16 00:00 45 09/08/16 00:00 97 09/08/16 00:00 98.1 91 22 99/54 98 09/07/16 22:43 97 40 09/07/16 22:00 92 09/07/16 20:00 97.9 98 20 113/80 98 09/07/16 20:00 98 09/07/16 20:00 45 09/07/16 19:59 99 40 09/07/16 18:00 84 09/07/16 16:00 84 09/07/16 16:00 98.8 110 18 143/88 98 09/07/16 16:00 45 09/07/16 15:47 100 40 09/07/16 15:09 40 Exam Comments GENERAL: Intubated and sedated. A frail elderly lady. HEAD, EYES, EARS, NOSE, THROAT: Normocephalic and atraumatic. Pupils 2-3 mm reacting to light. NECK: No neck rigidity. The neck is supple. No meningeal irritation. No carotid bruits. CARDIOVASCULAR: Regular rate and rhythm. No murmurs. RESPIRATORY: No crackles. No wheezing. Diminished air entry. EXTREMITIES: No cyanosis, no clubbing, no edema. NEUROLOGICAL EXAMINATION: Intubated,Pupils 2-3 mm, reacting to light. The patient responds to painful stimulation by wincing, trying to sit up and flexing her arms and responds to tickling the soles of the feet by withdrawing the feet and the legs. Plantar reflexes are b/l upgoing. Objective Radiology Results Last 72 hours Impressions Chest X-Ray 09/08/16 0000 Signed Impressions: Service Date/Time: Thursday, September 08, 2016 00:46 - CONCLUSION: 1. Stable tiny right apical pneumothorax. 2. Developing opacity within the right lung base potentially related to an infectious infiltrate. Scottie Miller Jr., MD Chest X-Ray 09/07/16 0000 Signed Impressions: Service Date/Time: Wednesday, September 07, 2016 08:23 - CONCLUSION: Small right pneumothorax. Efrain South MD Brain MRI 09/07/16 0000 Signed Impressions: Service Date/Time: Wednesday, September 07, 2016 13:58 - CONCLUSION: Moderate atrophy and white matter disease. Efrain South MD Micro and Labs Laboratory Tests Test 09/08/16 04:45 White Blood Count 19.8 Red Blood Count 3.85 Hemoglobin 11.0 Hematocrit 33.6 Mean Corpuscular Volume 87.3 Mean Corpuscular Hemoglobin 28.5 Mean Corpuscular Hemoglobin 32.7 Concent Red Cell Distribution Width 15.2 Platelet Count 354 Mean Platelet Volume 7.1 Neutrophils (%) (Auto) 87.9 Lymphocytes (%) (Auto) 8.2 Monocytes (%) (Auto) 3.7 Eosinophils (%) (Auto) 0.0 Basophils (%) (Auto) 0.2 Neutrophils # (Auto) 17.4 Lymphocytes # (Auto) 1.6 Monocytes # (Auto) 0.7 Eosinophils # (Auto) 0.0 Basophils # (Auto) 0.0 CBC Comment AUTO DIFF Differential Total Cells 100 Counted Neutrophils % (Manual) 81 Lymphocytes % 11 Monocytes % 4 Neutrophils # (Manual) 16.8 Metamyelocytes 1 Myelocytes 3 Nucleated Red Blood Cells 1 Differential Comment FINAL DIFF MANUAL Platelet Estimate NORMAL Platelet Morphology Comment NORMAL Keratocytes OCC Sodium Level 140 Potassium Level 3.9 Chloride Level 108 Carbon Dioxide Level 25.5 Anion Gap 7 Blood Urea Nitrogen 29 Creatinine 1.05 Estimat Glomerular Filtration 50 Rate Random Glucose 122 Calcium Level 8.1 Phosphorus Level 3.0 Date/Time Procedure Status Source Growth 09/08/16 08:40 Gram Stain Received Sputum Endotracheal Pending 09/08/16 08:40 Sputum Culture Received Sputum Endotracheal Pending Mark Acharya MD Sep 08, 2016 15:09
--- NOTE | 2016-09-08 17:08 | HHI.HCPN ---
Reason for visit a. To assist with evaluation and management of symptoms including: pain; dyspnea; encephalopathy b. To assist medical decision maker(s) with: better understanding of current medical conditions; weighing benefits/burdens of medical treatment options; making medical treatment decisions. . Subjective/Interval History Ms. Queen has tolerated CPAP throughout the day today. Fentanyl is down to 20 mcg/hr. She has periods of wakefulness but is unable to follow commands and only intermittently tracks for brief periods of time. She has not appeared painful. Though the formal EEG report from 09/07/15 is not yet on the chart, neurology has stated -- "- EEG with possible left frontal sharp waves?potential for seizures". Levitiracetam was bolused yesterday evening and patient is on BID dosing. EEG will probably be repeated on 09/09/15. Patient is afebrile. Borderline tachycardia. BP stable. Urine output good. Bowel movement today. Lab stable. CXR shows developing opacity within the right lung base. . From Dr. Coon's initial consultation note of 09/08/15... . Ms. Queen is an 81-year-old female active smoker with a known past medical history of renal cell cancer; COPD; hypothyroidism; and hypertension who was brought by her family to the [facility] Emergency Department on 09/02/16 because of respiratory distress and altered mental status. The patient's rather brisk decline began on 08/30/16 when the patient fell and fractured her right arm. She was taken to [facility] emergency room where x- rays confirmed a fractured humerus. The patient was discharged home and instructed to follow-up with an orthopedist. The patient was using tramadol 50 mgone tablet every 4 hours as needed for pain from the fracture. The orthopedic follow-up had not taken place and the night prior to the current ER presentation, the patient's daughter noted the patient to be confused with almost incoherent speech. She was also intermittently combative. She was also struggling to breathe. The daughter also noted that the patient would have episodes where her head would flop back and her eyes would roll back. Though the patient is a long-term smoker, she has never been on home 02 or been on nebulizer treatments or pulmonary meds. She has not been hospitalized for respiratory problems. She has not had any significant pain syndromes prior to the recent fall and fracture. She has not been on any type of regular analgesics prior to the recent fracture. Her arm pain since the fracture had been significantly worse with any movement. In the emergency department initial vital signs revealed the following... Temperature 98.5; pulse 71; respiratory rate 18; blood pressure 127/78; pulse oximetry was initially in the 80s. Physical examination in the emergency department noted the following: Patient was poorly responsive, frail appearing and in severe respiratory distress. Extensive ecchymoses were noted on the right upper extremity with swelling. There was also bruising on the left side of the face and the temporal area. The patient was using accessory muscles for respiration and there was diminished air movement bilaterally. There was jugular venous distention on the sitting position. The patient was quite anxious appearing. Examination of the eyes, ENT, cardiovascular, GI, were otherwise unremarkable Initial diagnostic studies revealed the following: * CBC showed WBC 14.1; hemoglobin 13.6; platelet count 404 * Coagulation profile showed PT 10.3; INR 0.9; * Chemistry panel showed sodium 134; potassium 4.2; chloride 101; CO2 24.3; anion gap 9; BUN 12; creatinine 0.85; glucose 104; lactic acid 1.4; calcium 8.6 * Liver function studies show total bilirubin 0.5; AST 19; ALT 20; alkaline phosphatase 75; ammonia less than 10; total protein 7.0; albumin 2.8 * Cardiac serology showed total CK 201; CK-MB 1.2; CK-MB percent 0.6%; troponin less than 0.02 * TSH was 1.28 * Basic urine drug screen was negative for opiates/barbiturate/amphetamine/benzo /cocaine/cannabinoids * EtOH level was less than 3 years * Urinalysis revealed cloudy urine with moderate occult blood; positive nitrites ; small leukocyte esterase; 59 WBCs; and moderate bacteria * EKG showed a normal sinus rhythm with a left bundle branch block and left axis deviation. There is first-degree AV block * Chest x-ray showed hyperaeration of both lungs with no acute pulmonary infiltrates * Arterial blood gases showed pH 7.33; PCO2 39; PaO2 442; bicarbonate 20; base excess -5 on the ventilator at 100% FiO2 * CT angiogram showed no evidence of pulmonary embolus. The CT, however, showed a few small scattered interstitial infiltrates in the right lung. * CT imaging of the brain showed no significant findings. * X-ray of the right humerus showed a subcapital and humeral head fracture. As the patient was ventilating and oxygenating poorly in the emergency department, intubation was felt to be necessary. This was accomplished after discussion with the patient's daughter. Shortly after intubation the patient was started on intravenous Zosyn and vancomycin to cover for possible sepsis. A right external jugular central line was placed. She was also given 2 L of IV fluid. Following sedation for intubation purposes the patient's blood pressure dropped to 58 systolic. Propofol was stopped and the pressure slowly improved. Critical care was consulted. The patient was transferred to the medical intensive care unit. A fentanyl infusion was started for sedation and analgesia while intubated. Bronchodilators and intravenous steroids were started. On 09/04/16 a pneumothorax was noted and chest tube was placed in the right side. Neurology was consulted for the altered mental status. Most likely etiology was felt to be encephalopathy from one or a combination of hypoxia / hypoperfusion / ischemia Orthopedics was consulted for the arm fracture. She was not felt to be a surgical candidate. Non -operative treatment was recommended - sling for comfort / PT for passive ROM and pendulums. The patent was found to have a prolapsed bladder and urology was consulted. No surgical intervention was recommended. Urology felt the patient might benefit from a pessary that could be arranged for by post-discharge f/u with gynecology. Ms. Queen remains in the medical intensive care unit sedated and intubated. An MRI of the brain performed today revealed atrophic changes but no evidence of infarction, mass, etc. White blood count which peaked at 26.8 is now down to 17.6. Hemoglobin has dropped to 9.7. Her urine culture grew out Escherichia coli. She was able to tolerate several hours of CPAP trial just two days ago, but failed after less than an hour today. . Family/friend interactions Spoke with daughter at bedside and then spoke by phone with son Jack (health care surrogate). Informed both about ? seizure activity and her ability to tolerate CPAP today. Jack has confirmed after speaking with his sisters that they would like patient to be re-intubated if she is medically weaned off the venitlator and then develops respiratory difficulties. He understands and accepts that she will probably need tracheostomy if this occurs. . Advance Directives Living Will: Copy in medical record Health Care Surrogate: Copy in medical record Durable Power of Syrup Mixer Assistant: Never completed Advance Directive Specifics Date completed: The living will document which includes information regarding health care surrogate designation was completed on 03/12/1999 . Health Care Surrogate(s): The patient has designated her son, Jack Queen, as health care surrogate. . Documented care wishes: The patient has completed a fairly standard [place] living will. It indicates she would not want life prolonging measures should she have a terminal condition , end-stage condition, or persistent vegetative state. She would also not want to have artificial nutrition/hydration in such cases. . Objective Vital Signs Date Time Temp Pulse Resp B/P Pulse Ox O2 Delivery O2 Flow Rate FiO2 09/08/16 16:02 100 40 09/08/16 16:00 102 09/08/16 16:00 40 09/08/16 16:00 98.0 102 18 124/91 100 09/08/16 14:00 103 09/08/16 12:00 104 09/08/16 12:00 40 09/08/16 12:00 98.0 104 14 119/61 100 09/08/16 11:50 100 40 09/08/16 10:00 104 09/08/16 08:19 40 09/08/16 08:19 100 40 09/08/16 08:00 40 09/08/16 08:00 110 09/08/16 08:00 97.5 110 19 150/114 100 09/08/16 06:00 80 09/08/16 04:13 100 40 09/08/16 04:00 40 09/08/16 04:00 97.9 97 20 126/86 100 09/08/16 04:00 99 09/08/16 02:00 96 09/08/16 01:52 98 40 09/08/16 00:00 45 09/08/16 00:00 97 09/08/16 00:00 98.1 91 22 99/54 98 09/07/16 22:43 97 40 09/07/16 22:00 92 09/07/16 20:00 97.9 98 20 113/80 98 09/07/16 20:00 98 09/07/16 20:00 45 09/07/16 19:59 99 40 09/07/16 18:00 84 Intake & Output 09/08/16 09/08/16 07:00 19:00 Intake Total 1504 ml 826 ml Output Total 530 ml 1930 ml Balance 974 ml -1104 ml Intake IV Total 717 ml 328 ml Tube Feeding 557 ml 298 ml Tube Irrigant 200 ml Other 230 ml Output Urine Total 500 ml 1900 ml Chest Tube Drainage Total 30 ml 30 ml # Bowel Movements 1 1 . Physical Exam CONSTITUTIONAL/GENERAL: This is an adequately nourished frail appearing patient who is intubated and on CPAP in the medical intensive care unit bed. Fentanyl is running at 20 mcg/min. The patient is wakeful, but does not track , does not follow commands. No apparent distress. TUBES/LINES/DRAINS: Orogastric tube; orotracheal tube; Morse catheter; left internal jugular central line; PICC line; SCDs SKIN: No jaundice, rashes. Ecchymoses on right side of face and right upper extremity.. No wounds seen anteriorly. Skin temperature appropriate. Not diaphoretic. HEAD: Atraumatic. Normocephalic. EYES: Pupils equal and round. Extraocular motions intact. No scleral icterus. No injection or drainage. Fundi not examined. ENT: Nose without bleeding or purulent drainage. Throat without visible erythema, exudates, masses, or lesions though difficult to evaluate due to intubations. NECK: Trachea midline. CARDIOVASCULAR: Regular rate and rhythm without murmurs, gallops, or rubs. RESPIRATORY/CHEST: Symmetric, unlabored respirations. Breath sounds equal bilaterally. Lungs clear. Chest tube on the right. GASTROINTESTINAL: Abdomen soft, non-tender, nondistended. No hepato-splenomegaly , or palpable masses. No guarding. Bowel sounds present. GENITOURINARY: Without palpable bladder distension. Morse catheter in place. MUSCULOSKELETAL: Extremities without clubbing, cyanosis. There is edema in both arms right greater than left. No joint tenderness or effusion noted. No calf tenderness. Guards RUE where she has suffered her fracture. LYMPHATICS: Not examined. NEUROLOGICAL: Wakeful, but does not track and does not follow commands. Moves all extremities but guards RUE (fracture site). PSYCHIATRIC: Unable to adequately evaluate due to level of responsiveness and because she is nonverbal/intubated. . Diagnostic Tests Laboratory Laboratory Tests Test 09/06/16 09/06/16 09/07/16 09/08/16 03:35 05:57 03:25 04:45 White Blood Count 15.6 TH/MM3 17.6 TH/MM3 19.8 TH/MM3 (4.0-11.0) (4.0-11.0) (4.0-11.0) Red Blood Count 3.38 MIL/MM3 3.35 MIL/MM3 3.85 MIL/MM3 (4.00-5.30) (4.00-5.30) (4.00-5.30) Hemoglobin 9.8 GM/DL 9.7 GM/DL 11.0 GM/DL (11.6-15.3) (11.6-15.3) (11.6-15.3) Hematocrit 29.9 % 29.3 % 33.6 % (35.0-46.0) (35.0-46.0) (35.0-46.0) Mean Corpuscular Volume 88.6 FL 87.6 FL 87.3 FL (80.0-100.0) (80.0-100.0) (80.0-100.0) Mean Corpuscular Hemoglobin 28.9 PG 29.1 PG 28.5 PG (27.0-34.0) (27.0-34.0) (27.0-34.0) Mean Corpuscular Hemoglobin 32.6 % 33.2 % 32.7 % Concent (32.0-36.0) (32.0-36.0) (32.0-36.0) Red Cell Distribution Width 15.0 % 15.1 % 15.2 % (11.6-17.2) (11.6-17.2) (11.6-17.2) Platelet Count 345 TH/MM3 309 TH/MM3 354 TH/MM3 (150-450) (150-450) (150-450) Mean Platelet Volume 7.2 FL 6.9 FL 7.1 FL (7.0-11.0) (7.0-11.0) (7.0-11.0) Neutrophils (%) (Auto) 91.4 % 89.4 % 87.9 % (16.0-70.0) (16.0-70.0) (16.0-70.0) Lymphocytes (%) (Auto) 5.0 % 7.0 % 8.2 % (9.0-44.0) (9.0-44.0) (9.0-44.0) Monocytes (%) (Auto) 3.4 % (0.0-8.0) 3.4 % (0.0-8.0) 3.7 % (0.0-8.0) Eosinophils (%) (Auto) 0.0 % (0.0-4.0) 0.0 % (0.0-4.0) 0.0 % (0.0-4.0) Basophils (%) (Auto) 0.2 % (0.0-2.0) 0.2 % (0.0-2.0) 0.2 % (0.0-2.0) Neutrophils # (Auto) 14.2 TH/MM3 15.8 TH/MM3 17.4 TH/MM3 (1.8-7.7) (1.8-7.7) (1.8-7.7) Lymphocytes # (Auto) 0.8 TH/MM3 1.2 TH/MM3 1.6 TH/MM3 (1.0-4.8) (1.0-4.8) (1.0-4.8) Monocytes # (Auto) 0.5 TH/MM3 0.6 TH/MM3 0.7 TH/MM3 (0-0.9) (0-0.9) (0-0.9) Eosinophils # (Auto) 0.0 TH/MM3 0.0 TH/MM3 0.0 TH/MM3 (0-0.4) (0-0.4) (0-0.4) Basophils # (Auto) 0.0 TH/MM3 0.0 TH/MM3 0.0 TH/MM3 (0-0.2) (0-0.2) (0-0.2) CBC Comment AUTO DIFF AUTO DIFF AUTO DIFF Differential Total Cells 100 100 Counted Neutrophils % (Manual) 95 % (16-70) 81 % (16-70) Band Neutrophils % 3 % (0-6) Lymphocytes % 1 % (9-44) 11 % (9-44) Monocytes % 1 % (0-8) 4 % (0-8) Neutrophils # (Manual) 15.3 TH/MM3 16.8 TH/MM3 (1.8-7.7) (1.8-7.7) Nucleated Red Blood Cells 2 /100 WBC 1 /100 WBC (0-0) (0-0) Differential Comment FINAL DIFF AUTO DIFF FINAL DIFF MANUAL CONFIRMED MANUAL Platelet Estimate NORMAL NORMAL NORMAL (NORMAL) (NORMAL) (NORMAL) Platelet Morphology Comment NORMAL NORMAL NORMAL (NORMAL) (NORMAL) (NORMAL) Sodium Level 149 MEQ/L 146 MEQ/L 140 MEQ/L (136-145) (136-145) (136-145) Potassium Level 4.1 MEQ/L 3.8 MEQ/L 3.9 MEQ/L (3.5-5.1) (3.5-5.1) (3.5-5.1) Chloride Level 117 MEQ/L 114 MEQ/L 108 MEQ/L (98-107) (98-107) (98-107) Carbon Dioxide Level 20.7 MEQ/L 22.0 MEQ/L 25.5 MEQ/L (21.0-32.0) (21.0-32.0) (21.0-32.0) Anion Gap 11 MEQ/L (5-15) 10 MEQ/L (5-15) 7 MEQ/L (5-15) Blood Urea Nitrogen 25 MG/DL (7-18) 26 MG/DL (7-18) 29 MG/DL (7-18) Creatinine 1.23 MG/DL 1.14 MG/DL 1.05 MG/DL (0.50-1.00) (0.50-1.00) (0.50-1.00) Estimat Glomerular Filtration 42 ML/MIN (>89) 46 ML/MIN (>89) 50 ML/MIN (>89) Rate Random Glucose 106 MG/DL 96 MG/DL 122 MG/DL (74-106) (74-106) (74-106) Calcium Level 8.3 MG/DL 8.1 MG/DL 8.1 MG/DL (8.5-10.1) (8.5-10.1) (8.5-10.1) Phosphorus Level 2.8 MG/DL 2.3 MG/DL 3.0 MG/DL (2.5-4.9) (2.5-4.9) (2.5-4.9) Magnesium Level 2.0 MG/DL 1.9 MG/DL (1.5-2.5) (1.5-2.5) Lactic Acid Level 0.9 mmol/L (0.4-2.0) Metamyelocytes 1 % (0-1) Myelocytes 3 % (0-0) Keratocytes OCC (NORMAL) . Result Diagram: 09/08/165 09/08/16 0445 Microbiology Microbiology Date/Time Procedure Status Source Growth 09/08/16 08:40 Gram Stain Received Sputum Endotracheal Pending 09/08/16 08:40 Sputum Culture Received Sputum Endotracheal Pending . Imaging Last Impressions Chest X-Ray 09/08/16 0000 Signed Impressions: Service Date/Time: Thursday, September 08, 2016 00:46 - CONCLUSION: 1. Stable tiny right apical pneumothorax. 2. Developing opacity within the right lung base potentially related to an infectious infiltrate. Scottie Miller Jr., MD Brain MRI 09/07/16 0000 Signed Impressions: Service Date/Time: Wednesday, September 07, 2016 13:58 - CONCLUSION: Moderate atrophy and white matter disease. Efrain South MD Shoulder X-Ray 09/03/16 0000 Signed Impressions: Service Date/Time: August 12:40 - CONCLUSION: There is a displaced fracture through the neck of the proximal humerus. The humeral head is either subluxed or displaced posteriorly. If clinically indicated, a noncontrast CT scan of the right shoulder could be performed for further evaluation. Mushtaq Hernandez MD Head CT 09/02/16 0959 Signed Impressions: Service Date/Time: Friday, September 02, 2016 12:01 - CONCLUSION: 1. No focal or acute intracranial hemorrhage. 2. Bilateral cortical atrophy and chronic white matter changes. 3. Chronic sinus disease. Mushtaq Hernandez MD Humerus X-Ray 09/02/16 0000 Signed Impressions: Service Date/Time: Friday, September 02, 2016 12:25 - CONCLUSION: Fracture subcapital and humeral head. Richie Mtz MD Elbow X-Ray 09/02/16 0000 Signed Impressions: Service Date/Time: Friday, September 02, 2016 12:29 - CONCLUSION: No acute bony injury Richie Mtz MD CT Angiography 09/02/16 0000 Signed Impressions: Service Date/Time: Friday, September 02, 2016 12:01 - CONCLUSION: 1. No evidence of PE. 2. Hyperaeration of the lung miller suggestive of COPD. 3. A few small scattered interstitial infiltrates in the right lung. Mushtaq Hernandez MD . Procedures * Intubation/mechanical ventilation * PICC line placement * Chest tube placement * Central line placement . . Other == EEG 09/07/15 -- ? seizure activity. . Assessment and Plan Disease Oriented Problem List: (1) Respiratory failure (2) COPD (chronic obstructive pulmonary disease) (3) Sepsis (4) UTI (urinary tract infection) (5) Altered mental status (6) Pneumothorax (7) Humerus fracture (8) Renal cell cancer (9) Hypertension (10) Anemia Symptom Scale: (1) Pain 0-10 Scale: Unable to quantify Comment: Patient is intubated and nonverbal. She is unable to locate, quantify , qualify her pain. Family reports that her main pain syndrome is from her fractured arm. This pain will be quite severe particularly with movement. Family reports there were no pain syndromes prior to her fall. Here in the intensive care unit, other sources of pain could include the following: Prolonged bedbound status; urethral catheterization; vascular catheterizations; orotracheal intubation. . (2) Dyspnea 0-10 Scale: Unable to quantify Comment: Patient is currently intubated and mechanically ventilated. She is tolerating CPAP most of day today. . . Pertinent Non-Medical Issues Psychosocial: Good psychosocial support from her 3 local children. Spiritual: Patient is Restorationism. Family reports restorationist is an important part of her life. Per family request we will have a paper cone machine tender visit. Legal: The patient has a living will and a hard copy is on the chart. The designated health care surrogate is her sonGary. Ethical issues impacting care: The patient is currently incapacitated to make her own health care decisions. It is unclear if she will be able to regain such capacity. . Important Contacts * Jack Queen (son and the health care surrogate) * Flor Crouch (daughter) [phone] . Prognosis Ms Queen is 81 years old and is a current smoker but, per family, had been doing reasonably well in terms of her functional status. She used a walker to ambulate but was able to take care of all her ADLs. She was very hard of hearing and otherwise was cognitively sharp. She had a very sudden decline since experiencing a fall in which she fractured her right humerus. It is felt that her initial altered mental status might have been due to a combination of her illness and tramadol usage. At this point, her encephalopathy is probably multifactorial. New ? of seizure activity noted on EEG of 10/23. CT imaging of the chest showed small infiltrates so her pulmonary status is probably pneumonia on chronic mild COPD. She also had a right pneumothorax requiring a chest tube. CXR of 09/08/16 shows developing infiltrate. Her urinary tract infection is probably resolved by now. As her COPD was relatively mild (no history of respiratory hospitalization; no home O2 usage; no regular use of pulmonary medications), there is really no other obvious underlying terminal illness. As cancers prevalent in the family, as the patient herself underwent treatment for kidney cancer, and as there is been a 50-60 pound weight loss over the last years, an occult malignancy is certainly a possibility. Family reports, however, that the patient sees her doctor on a regular basis and there has been no reported concern for a new cancer or recurrence. . Code Status: Alternative Code Plan == CODE STATUS: Alternate code == Decision-making: The patient is incapacitated to make her own health care decisions and it does not appear likely that she will regain such capacity in the near future if at all. Her son, Jack, is the designated health care surrogate. He visits regularly, has a good understanding of the patient's illness, and has accepted the role of health care surrogate. Though he is the list surrogate, he is in close communication with his 2 sisterKyle and Eleonora -- and includes them in the decision-making process. The other sibling, Zaid, is estranged from the family and there is no contact information. == Goals of medical treatment: As there is no clear-cut underlying terminal illness, Jack, the health care surrogate, is wanting to give his mother every chance to improve. He wants aggressive care to continue. His sisters, apparently, are more ready to transition to "comfort measures." The most immediate question is what with the patient want at this time if we can medically wean her and then she developed some respiratory distress again which she want to be reintubated or not? Most likely, if the patient would need reintubation, she would probably need tracheostomy. Jack has spoken to both sisters. His decision is that he would want reintubation if necessary after extubation even if that would mean she would need to go on to tracheostomy. He , personally, had been intubated and thought the process of whole time feeling like he was gagging and choking. == Pain: Multiple possible sources of pain are noted above. Patient has been on fentanyl for sedation and pain control. It appears to work. Keeping the patient comfortable while preventing oversedation and preventing possible delirium from opiates will be challenging. I would recommend that fentanyl continued to be the drug of choice for pain. If she does not need the fentanyl for sedation on the ventilator, would use the fentanyl on a PRN basis particularly for her fracture pain. == Dyspnea: Patient's pneumothorax is resolving with chest tube placement. She has apparent pneumonia on top of some underlying mild COPD. Her ability to tolerate C Pap trials is varying greatly from day to day. At this point, while we are trying to get her more awake and medically wean her, I would steer away from opiates or benzos or other sedating medications to help with any dyspnea unless truly necessary. == Encephalopathy: As noted above this is likely multifactorial. Some of the agitation when off sedation could conceivably be secondary to her IV steroids. As noted above, opiate usage itself may have caused some delirium and altered mental status. Her EEG suggests seizure activity may be a factor. Patient now in levitiracetam. == May want to delay extubation until we know whether this is seizure activity and whether it is easily controllable. She is likely going to have trouble protecting her airway while seizing. We may have to go directly to tracheostomy if aggressive care continues to be desired. If neurology is able to give a better prognosis for meaningful recovery, family will better be able to determine goals. For example, if she is likely to have refractory seizures , then they may opt against further aggressive care and trach. == Palliative care will continue to follow to assist with symptom management and to further clarify goals of medical treatment as the clinical case evolves. . Time Spent Total Floor Time (mins): 45 (Total time includes chart review; patient exam; above referenced discussions with family; and collaboration with primary nurse.) Face to Face Time (mins): 10 >50% Counseling/Coord of Care: Yes Attestation To help prompt me to consider important information that might be impacting today's encounter and assessment, information from prior notes written by myself or my colleagues may have been "brought forward" into today's note. My signature on this note, however, is an attestation that I personally performed the exam, history, and/or decision-making noted today, and, unless otherwise indicated, the interactions with patient, family, and staff as well as the review of records all occurred today. I also attest that the listed assessment and stated plan reflect my best clinical judgment today based on the combination of historical information, prior notes, and today's exam/ interactions. When time spent is documented, it refers only to time spent today by the signer, or if indicated, combined time spent today by collaborating physician/nurse practitioner. . Kranthi Coon MD Sep 08, 2016 17:08
--- NOTE | 2016-09-08 22:04 | RADRPT ---
EXAM DATE/TIME: 09/08/2016 20:11 [facility] COMPARISON: CHEST SINGLE AP, September 08, 2016, 0:46. INDICATIONS : Shortness of breath. MEDICAL HISTORY : Hypertension. Chronic obstructive pulmonary disease. Renal cancer SURGICAL HISTORY : Hysterectomy. ENCOUNTER: Subsequent ACUITY: 4 - 6 days PAIN SCORE: Non-responsive. LOCATION: Bilateral chest FINDINGS: Endotracheal tube is stable and satisfactory position. Nasogastric tube descends to the stomach. Left arm PICC line is in stable position. Right thoracostomy tube is again noted. There is a tiny right a pical pneumothorax with 7 mm separation of apical pleural layers. Subcutaneous emphysema in the right lateral chest wall. There is mild bibasilar parenchymal opacity which is unchanged. Cardiomediastina l contours are grossly stable. CONCLUSION: Tiny right apical pneumothorax. David Sánchez MD on September 08, 2016 at 22:01 Board Certified Radiologist. This report was verified electronically.
[2016-09-09] VITALS (19 sets, daily range): BP systolic 84–140; BP diastolic 50–70; PULSE 80–105; RESP 18–26; TEMP 97–99.1; O2SAT 100
[2016-09-09] MEDS: CHLORHEXIDINE GLUCONATE 2 % 1 PACK (2 CLOTHS) TOP SCH (02:43)
[2016-09-09 04:44] LABS: AUTOMATED NEUTROPHIL # 18.3 TH/MM3 (1.8-7.7); BASOPHIL # 0.1 TH/MM3 (0-0.2); BASOPHIL % 0.4 % (0.0-2.0); EOSINOPHIL % 0.1 % (0.0-4.0); HEMATOCRIT 32.8 % (35.0-46.0); LYMPH % 8.2 % (9.0-44.0); LYMPHOCYTE # 1.7 TH/MM3 (1.0-4.8); MEAN CELL VOLUME 86.9 FL (80.0-100.0); MEAN CORPUSCULAR HEMOGLOBIN 29.1 PG (27.0-34.0); MEAN CORPUSCULAR HGB CONC 33.5 % (32.0-36.0); MONO % 4.1 % (0.0-8.0); NEUT % 87.2 % (16.0-70.0); PLATELET COUNT 384 TH/MM3 (150-450); RED BLOOD COUNT 3.78 MIL/MM3 (4.00-5.30); RED CELL DISTRIBUTION WIDTH 15.1 % (11.6-17.2); WHITE BLOOD COUNT 20.9 TH/MM3 (4.0-11.0)
[2016-09-09 04:52] LABS: HEMO FLAGS AUTO DIFF
--- NOTE | 2016-09-09 04:57 | RADRPT ---
EXAM DATE/TIME: 09/09/2016 03:25 [facility] COMPARISON: CHEST SINGLE AP, September 08, 2016, 20:11. INDICATIONS : Shortness of breath. MEDICAL HISTORY : Hypertension. Chronic obstructive pulmonary disease. Renal cancer SURGICAL HISTORY : Hysterectomy. ENCOUNTER: Subsequent ACUITY: 1 week PAIN SCORE: Non-responsive. LOCATION: Bilateral chest FINDINGS: 2 portable frontal views of the chest show no interval change. A tiny apical pneumothorax is again se en despite a right thoracostomy tube. Endotracheal tube tip is 2 cm proximal to christianne. Left-sided PI CC line and nasogastric tube noted. Subcutaneous air overlies the right chest. Consolidation within t he lung bases bilaterally is stable. No effusions. Heart is normal in size. Right humeral head fractu re again seen. CONCLUSION: No change with persistent tiny apical pneumothorax on the right. Bibasilar consolidation. Scottie Miller Jr., MD on September 09, 2016 at 4:54 Board Certified Radiologist. This report was verified electronically.
[2016-09-09 05:11] LABS: BICARBONATE 26.4 MEQ/L (21.0-32.0); POTASSIUM 4.1 MEQ/L (3.5-5.1)
[2016-09-09] MEDS: LEVOTHYROXINE SODIUM 88 MCG TAB PO SCH (05:23)
[2016-09-09] MEDS: PIPERACIL-TAZO 3.375 GM PREMIX 50 ML IV SCH ×4 (05:23→23:33)
[2016-09-09] MEDS: INSULIN NovoLIN REGULAR SUPPLEMENTAL SCALE SQ SCH ×4 (05:23→23:28)
[2016-09-09 07:38] LABS: BANDS 2 % (0-6); CORRECTED NUCLEATED RBC 1 /100 WBC (0-0); METAMYELOCYTES 1 % (0-1); MYELOCYTES 1 % (0-0); NEUTROPHIL # MANUAL DIFF 18.2 TH/MM3 (1.8-7.7); PLATELET ESTIMATE SMEAR NORMAL (NORMAL); PLATELET MORPHOLOGY NORMAL (NORMAL); POLYS (SEG NEUTROPHILS) 83 % (16-70); SCAN/DIFF FINAL DIFF MANUAL; WBC DIFF SAMPLE 100
[2016-09-09] MEDS: FREE WATER G-TUBE SCH ×2 (09:00→21:00)
[2016-09-09] MEDS: CHLORHEXIDINE 0.12% (ORAL KIT) 15 ML CUP MT SCH ×2 (09:12→21:20)
[2016-09-09] MEDS: PANTOPRAZOLE SODIUM 40 MG VIAL IV SCH (09:12)
[2016-09-09] MEDS: levETIRAcetam 1000 MG INJ 100 ML IV SCH ×2 (09:12→21:20)
[2016-09-09] MEDS: methylPREDNISolone SOD SUCC 40 MG/1 ML VIAL IV PUSH SCH ×2 (09:13→21:20)
[2016-09-09] MEDS ORDERED: TERBUTALINE INJ 1 MG/ML AMP SQ PRN (09:15)
--- NOTE | 2016-09-09 10:07 | HHI.CCPN ---
Subjective Remarks/Hospital Course The patient is an 81-year-old female with a past medical history of COPD, active smoker, hypertension and hypothyroidism. She presented to [facility] ED with her family for altered mental status and respiratory distress. According to the patient's daughter she fell last Wednesday and broke her right arm. She was taken to [facility] ED and was found to have a right humerus fracture. She was discharged home with an arm sling and advised to follow-up with an orthopedic surgeon. In addition the patient was taking tramadol one tablet every four hours as needed for pain for the past three days. The patient has been combative and agitated at home according to the daughter and when she arrived to the ED she was found to have an O2 saturation in the 80s on room in triage. She was intubated and placed on full mechanical ventilation. The patient was given etomidate and succinylcholine for intubation. A chest x-ray post intubation showed ET tube above the christianne, hyperaeration of both lungs with no acute pulmonary infiltrates. She also underwent a CT angiogram of the chest which showed no evidence of PE, however, it showed a few small scattered interstitial infiltrates in the right lung. The patient also had CT scan of the brain which showed no focal or acute intracranial hemorrhage. She received 2 liters of crystalloids in the ED in addition to vancomycin and Zosyn. Her laboratory data is significant for leukocytosis with a WBC of 14.1, however, the patient is afebrile. Lactic acid measured at 1.4 and her urinalysis was compatible with a UTI. She had 59 wbc's with moderate bacteria, positive nitrite and small leukocyte esterase. X-ray of her right humerus showed a subcapital and humeral head fracture. When seen the patient is sedated with Diprivan and on full mechanical ventilation. Current blood pressure is 119 /54 with a pulse of 59. ABG post intubation showed a pH of 7.33, CO2 39, PAO2 442, bicarb 20, saturation 96% on assist control ventilation with a respiratory rate of 18, tidal volume 500, PEEP of 5, FIO2 100%. 09/03 No acute events overnight. Sedated with Fentanyl and intubated. 09/04 Patient remains sedated with Fentanyl and intubated. ABG showed mild resp acidosis on CPAP trials yesterday. 09/05 Patient is sedated with Diprivan, Fentanyl and intubated. On Levophed [address]. Afebrile. 09/06 Patient remains sedated with Fentanyl and intubated. Afebrile. 09/07 No acute events overnight. Sedated and intubated. Afebrile. For MRI brain and EEG today per neurology. 09/08 Patient is sedated with Fentanyl and intubated. Had air leak in CT when repositioned, CXR from early this morning showed stable tint right apical PTX. MRI brain from yesterday showed atrophy. 09/09: Patient remains sedated, orally intubated on mechanical ventilation. Became hypotensive this morning for which receiving fluid bolus and started on Levophed for pressor support. Objective Vital Signs Date Time Temp Pulse Resp B/P Pulse Ox O2 Delivery O2 Flow Rate FiO2 09/09/16 07:41 100 40 09/09/16 06:00 105 09/09/16 04:00 98.8 22 140/60 Intake and Output 09/08/16 09/08/16 09/09/16 08:00 16:00 00:00 Intake Total 668 ml 826 ml 511 ml Output Total 270 ml 1930 ml 725 ml Balance 398 ml -1104 ml -214 ml Result Diagram: 09/09/16 0408 09/09/16 0408 Imaging Last Impressions Chest X-Ray 09/07/16 0000 Signed Impressions: Service Date/Time: Wednesday, September 07, 2016 08:23 - CONCLUSION: Small right pneumothorax. Efrain South MD Brain MRI 09/07/16 0000 Signed Impressions: Service Date/Time: Wednesday, September 07, 2016 13:58 - CONCLUSION: Moderate atrophy and white matter disease. Efrain South MD Shoulder X-Ray 09/03/16 0000 Signed Impressions: Service Date/Time: August 12:40 - CONCLUSION: There is a displaced fracture through the neck of the proximal humerus. The humeral head is either subluxed or displaced posteriorly. If clinically indicated, a noncontrast CT scan of the right shoulder could be performed for further evaluation. Mushtaq Hernandez MD Head CT 09/02/16 0959 Signed Impressions: Service Date/Time: Friday, September 02, 2016 12:01 - CONCLUSION: 1. No focal or acute intracranial hemorrhage. 2. Bilateral cortical atrophy and chronic white matter changes. 3. Chronic sinus disease. Mushtaq Hernandez MD Humerus X-Ray 09/02/16 0000 Signed Impressions: Service Date/Time: Friday, September 02, 2016 12:25 - CONCLUSION: Fracture subcapital and humeral head. Richie Mtz MD Elbow X-Ray 09/02/16 0000 Signed Impressions: Service Date/Time: Friday, September 02, 2016 12:29 - CONCLUSION: No acute bony injury Richie Mtz MD CT Angiography 09/02/16 0000 Signed Impressions: Service Date/Time: Friday, September 02, 2016 12:01 - CONCLUSION: 1. No evidence of PE. 2. Hyperaeration of the lung miller suggestive of COPD. 3. A few small scattered interstitial infiltrates in the right lung. Mushtaq Hernandez MD Objective Remarks GENERAL: Patient is 81 yo intubated and sedated. SKIN: Warm and dry. HEAD: Normocephalic. EYES: No scleral icterus. No injection or drainage. NECK: Supple, trachea midline. No JVD or lymphadenopathy. Orally intubated. CARDIOVASCULAR: Regular rate and rhythm without murmurs, gallops, or rubs. RESPIRATORY: On mechanical ventilation, Breath sounds equal bilaterally. Scattered rhonchi. Right CT in place-no air leak and time of my evaluation GASTROINTESTINAL: Abdomen soft, non-tender, nondistended. MUSCULOSKELETAL: No cyanosis, or edema. Neuro: Sedated, encephalopathic, intubated A/P Assessment and Plan 1. Acute respiratory failure on mechanical ventilation 2. Encephalopathy 3. Urinary tract infection. 4. Leukocytosis. 5. Right humerus fracture. 6. Status post fall. 7. Hypothyroidism. 8. COPD. 9. Hypertension. 10 Right sided PTX s/p Chest tube placement on 09/04 PLAN Neuro: On fentanyl infusion for sedation and analgesia while intubated. Daily sedation vacation. Monitor neuro status closely. CT brain showed no evidence of any acute intracranial findings. Neurology is following. Follow-up EEG 09/07: MRI brain: Atrophy no acute process. On Keppra 1000mg Q12 Pulm: Continue with vent support and maintain sats above 92%. Bronchodilators, Solu-Medrol 40 mg IV q12 ICU vent bundle, CPAP trials as dorie Right CT placed 09/04 for right sided PTX, repeat CXR showed resolution of PTX CXR 09/09 stable tiny right apical PTX CV: Monitor HR and BP and maintain MAP> 65 mmHg. Started on Levophed for pressor support. 500 cc normal saline bolus ordered for hypotension. Awaiting stat labs including cardiac enzymes, CBC, CMP and EKG. : Monitor renal function, I's and O's, and electrolyte replacement per protocol. On Free water 200ml Q12, monitor sodium level. GI: On Protonix 40 mg IV daily for GI prophylaxis. Glucerna 1.5 with goal rate 45ml/hr ID: Continue with abx(Zosyn) and monitor for signs of infection( fever and WBC) check sputum cx 09/02 Urine cx: E.coli' 09/02 BC: NGTD Heme: Monitor CBC. [place]: Orthopedic surgery is following regarding right humerus fracture- non-op treatment per ortho. Endo: SSI with Accu-Cheks q.6h. for glycemic control Continue with Synthroid 88 mcg daily. TSH: 1.28. GI prophylaxis with Protonix 40 mg daily and DVT prophylaxis with SCDs. Not on chemical anticoagulation prophylaxis for now given extensive ecchymosis of her right upper extremity. LUE PICC line placed 09/05 Palliative care on case 09/06 Dr. Cervantes spoke to patient's son Jack Queen(healthcare surrogate) along with his sisters and updated them on her condition. They agreed to make patient DNR ( Alternative code) they do not want any CPR, chest compression or cardiac resuscitation. CCT 30 mins excluding procedures. Edin Laird MD Sep 09, 2016 10:07
[2016-09-09 10:34] LABS: HEMATOCRIT 31.4 % (35.0-46.0); MEAN CELL VOLUME 87.4 FL (80.0-100.0); MEAN CORPUSCULAR HEMOGLOBIN 29.3 PG (27.0-34.0); MEAN CORPUSCULAR HGB CONC 33.6 % (32.0-36.0); PLATELET COUNT 380 TH/MM3 (150-450); RED BLOOD COUNT 3.59 MIL/MM3 (4.00-5.30); RED CELL DISTRIBUTION WIDTH 15.3 % (11.6-17.2); REVIEW FLAG FINAL; WHITE BLOOD COUNT 21.9 TH/MM3 (4.0-11.0)
[2016-09-09 10:53] LABS: ANION GAP 10 MEQ/L (5-15); AST (GOT) 49 U/L (15-37); BLOOD UREA NITROGEN 31 MG/DL (7-18); CHLORIDE 104 MEQ/L (98-107); GLOMERULAR FILTRATION RATE 56 ML/MIN (>89); POTASSIUM 3.7 MEQ/L (3.5-5.1); SODIUM (NA) 140 MEQ/L (136-145)
[2016-09-09 10:57] LABS: ALKALINE PHOSPHATASE 64 U/L (45-117); ALT (GPT) 171 U/L (10-53); TOTAL BILIRUBIN ADULT 0.7 MG/DL (0.2-1.0)
--- NOTE | 2016-09-09 11:14 | HHI.HCPN ---
Reason for visit a. To assist with evaluation and management of symptoms including: pain; dyspnea; encephalopathy b. To assist medical decision maker(s) with: better understanding of current medical conditions; weighing benefits/burdens of medical treatment options; making medical treatment decisions. . Subjective/Interval History Ms. Queen became hypotensive this AM and is now on norepinephrine and receiving a fluid bolus. WBC has also increased. At time of my visit she remains intubated, mechanically ventilated, and is sedated. Does not stir to voice or exam. Tmax 99.6. Borderline tachycardia. BP went down to 84/50. Urine output remains good. Had negative fluid balance of 1392. Bowels moving. WBC up to 21.9 (increasing daily since 09/06/16). Sputum cx from 09/08 still pending. CXR shows bibasilar consolidation. . From Dr. Coon's initial consultation note of 09/08/15... . Ms. Queen is an 81-year-old female active smoker with a known past medical history of renal cell cancer; COPD; hypothyroidism; and hypertension who was brought by her family to the [facility] Emergency Department on 09/02/16 because of respiratory distress and altered mental status. The patient's rather brisk decline began on 08/30/16 when the patient fell and fractured her right arm. She was taken to [facility] emergency room where x- rays confirmed a fractured humerus. The patient was discharged home and instructed to follow-up with an orthopedist. The patient was using tramadol 50 mgone tablet every 4 hours as needed for pain from the fracture. The orthopedic follow-up had not taken place and the night prior to the current ER presentation, the patient's daughter noted the patient to be confused with almost incoherent speech. She was also intermittently combative. She was also struggling to breathe. The daughter also noted that the patient would have episodes where her head would flop back and her eyes would roll back. Though the patient is a long-term smoker, she has never been on home 02 or been on nebulizer treatments or pulmonary meds. She has not been hospitalized for respiratory problems. She has not had any significant pain syndromes prior to the recent fall and fracture. She has not been on any type of regular analgesics prior to the recent fracture. Her arm pain since the fracture had been significantly worse with any movement. In the emergency department initial vital signs revealed the following... Temperature 98.5; pulse 71; respiratory rate 18; blood pressure 127/78; pulse oximetry was initially in the 80s. Physical examination in the emergency department noted the following: Patient was poorly responsive, frail appearing and in severe respiratory distress. Extensive ecchymoses were noted on the right upper extremity with swelling. There was also bruising on the left side of the face and the temporal area. The patient was using accessory muscles for respiration and there was diminished air movement bilaterally. There was jugular venous distention on the sitting position. The patient was quite anxious appearing. Examination of the eyes, ENT, cardiovascular, GI, were otherwise unremarkable Initial diagnostic studies revealed the following: * CBC showed WBC 14.1; hemoglobin 13.6; platelet count 404 * Coagulation profile showed PT 10.3; INR 0.9; * Chemistry panel showed sodium 134; potassium 4.2; chloride 101; CO2 24.3; anion gap 9; BUN 12; creatinine 0.85; glucose 104; lactic acid 1.4; calcium 8.6 * Liver function studies show total bilirubin 0.5; AST 19; ALT 20; alkaline phosphatase 75; ammonia less than 10; total protein 7.0; albumin 2.8 * Cardiac serology showed total CK 201; CK-MB 1.2; CK-MB percent 0.6%; troponin less than 0.02 * TSH was 1.28 * Basic urine drug screen was negative for opiates/barbiturate/amphetamine/benzo /cocaine/cannabinoids * EtOH level was less than 3 years * Urinalysis revealed cloudy urine with moderate occult blood; positive nitrites ; small leukocyte esterase; 59 WBCs; and moderate bacteria * EKG showed a normal sinus rhythm with a left bundle branch block and left axis deviation. There is first-degree AV block * Chest x-ray showed hyperaeration of both lungs with no acute pulmonary infiltrates * Arterial blood gases showed pH 7.33; PCO2 39; PaO2 442; bicarbonate 20; base excess -5 on the ventilator at 100% FiO2 * CT angiogram showed no evidence of pulmonary embolus. The CT, however, showed a few small scattered interstitial infiltrates in the right lung. * CT imaging of the brain showed no significant findings. * X-ray of the right humerus showed a subcapital and humeral head fracture. As the patient was ventilating and oxygenating poorly in the emergency department, intubation was felt to be necessary. This was accomplished after discussion with the patient's daughter. Shortly after intubation the patient was started on intravenous Zosyn and vancomycin to cover for possible sepsis. A right external jugular central line was placed. She was also given 2 L of IV fluid. Following sedation for intubation purposes the patient's blood pressure dropped to 58 systolic. Propofol was stopped and the pressure slowly improved. Critical care was consulted. The patient was transferred to the medical intensive care unit. A fentanyl infusion was started for sedation and analgesia while intubated. Bronchodilators and intravenous steroids were started. On 09/04/16 a pneumothorax was noted and chest tube was placed in the right side. Neurology was consulted for the altered mental status. Most likely etiology was felt to be encephalopathy from one or a combination of hypoxia / hypoperfusion / ischemia Orthopedics was consulted for the arm fracture. She was not felt to be a surgical candidate. Non -operative treatment was recommended - sling for comfort / PT for passive ROM and pendulums. The patent was found to have a prolapsed bladder and urology was consulted. No surgical intervention was recommended. Urology felt the patient might benefit from a pessary that could be arranged for by post-discharge f/u with gynecology. Ms. Queen remains in the medical intensive care unit sedated and intubated. An MRI of the brain performed today revealed atrophic changes but no evidence of infarction, mass, etc. White blood count which peaked at 26.8 is now down to 17.6. Hemoglobin has dropped to 9.7. Her urine culture grew out Escherichia coli. She was able to tolerate several hours of CPAP trial just two days ago, but failed after less than an hour today. . Family/friend interactions Both daughters -- Omayra and Flor -- are at bedside. Flor continued to describe patient's functional status prior to her fall and arm fracture: * She ambulated with a walker but bathed, dressed, toileted on her own. * She prepared her own coffee and meals * She successfully cared for her own dog. * Though there is agreement that she lost 40-50 lbs in the last 5 years, Flor believes that most of the weight was lost in the year after her 's and she has been relatively stable for several years. We reviewed the patient's current status. I shared that the patient's hypotension was probably due to sepsis and was another serious setback. Though her pre-fall functional status and general health spoke in favor of getting though this successfully, her hospital course with recent evidence of seizures and now probably sepsis made me much less optimistic. We discussed that it is certainly still possible that patient can pull through this. Given her hospital course to date, even if she does pull through it will likely be a challenging course. She will likely require a tracheostomy. She will be very debilitated at the end and will need to be willing to work hard with PT in order to regain strength and some resilience. Whether or not to continue with aggressive care or transition to comfort care depended in large part on how they saw the patient's will to live and her determination. They will discuss with their brother. . Advance Directives Living Will: Copy in medical record Health Care Surrogate: Copy in medical record Durable Power of Heating And Ventilating Tender: Never completed Advance Directive Specifics Date completed: The living will document which includes information regarding health care surrogate designation was completed on 03/12/1999 . Health Care Surrogate(s): The patient has designated her son, Jack Queen, as health care surrogate. . Documented care wishes: The patient has completed a fairly standard [place] living will. It indicates she would not want life prolonging measures should she have a terminal condition , end-stage condition, or persistent vegetative state. She would also not want to have artificial nutrition/hydration in such cases. . Objective Vital Signs Date Time Temp Pulse Resp B/P Pulse Ox O2 Delivery O2 Flow Rate FiO2 09/09/16 07:41 100 40 09/09/16 07:41 40 09/09/16 06:00 105 09/09/16 04:33 100 40 09/09/16 04:00 98.8 100 22 140/60 100 09/09/16 04:00 40 09/09/16 04:00 100 09/09/16 02:00 91 09/09/16 01:45 100 40 09/09/16 00:00 94 09/09/16 00:00 40 09/09/16 00:00 99.1 94 18 84/50 100 09/08/16 22:46 98 40 09/08/16 22:00 100 09/08/16 20:00 99.6 103 18 93/55 100 09/08/16 20:00 103 09/08/16 20:00 40 09/08/16 19:30 100 40 09/08/16 18:00 106 09/08/16 16:02 100 40 09/08/16 16:00 102 09/08/16 16:00 40 09/08/16 16:00 98.0 102 18 124/91 100 09/08/16 14:00 103 09/08/16 12:00 104 09/08/16 12:00 40 09/08/16 12:00 98.0 104 14 119/61 100 09/08/16 11:50 100 40 Intake & Output 09/09/16 09/09/16 07:00 19:00 Intake Total 937 ml Output Total 1225 ml Balance -288 ml Intake IV Total 317 ml Tube Feeding 620 ml Output Urine Total 1100 ml Tube Feeding Residual Discard 0 ml Chest Tube Drainage Total 125 ml # Bowel Movements 2 . Physical Exam CONSTITUTIONAL/GENERAL: This is an adequately nourished frail appearing patient who is intubated , mechanically ventilated, and sedated in an MICU bed. Does not open eyes or stir to voice/exam. TUBES/LINES/DRAINS: Orogastric tube; orotracheal tube; Morse catheter; left internal jugular central line; PICC line; SCDs; soft restraints. SKIN: No jaundice, rashes. Ecchymoses on right side of face and right upper extremity.. No wounds seen anteriorly. Skin temperature appropriate. Not diaphoretic. HEAD: Atraumatic. Normocephalic. EYES: Pupils equal and round. No scleral icterus. No injection or drainage. Fundi not examined. ENT: Nose without bleeding or purulent drainage. Throat without visible erythema, exudates, masses, or lesions though difficult to evaluate due to intubations. NECK: Trachea midline. CARDIOVASCULAR: Regular rate and rhythm without murmurs, gallops, or rubs. RESPIRATORY/CHEST: Symmetric, unlabored respirations. Breath sounds equal bilaterally but diminished. Lungs clear. Chest tube on the right. GASTROINTESTINAL: Abdomen soft, non-tender, nondistended. No hepato-splenomegaly , or palpable masses. No guarding. Bowel sounds present but hypoactive. GENITOURINARY: Without palpable bladder distension. Morse catheter in place. MUSCULOSKELETAL: Extremities without clubbing, cyanosis. There is edema in both arms right greater than left. LYMPHATICS: Not examined. NEUROLOGICAL: Sedated. Does not stir to voice/exam. No spontaneous movements seen. PSYCHIATRIC: Unable to adequately evaluate due to level of responsiveness and because she is nonverbal/intubated. . Diagnostic Tests Laboratory Laboratory Tests Test 09/07/16 09/08/16 09/09/16 09/09/16 03:25 04:45 04:08 10:05 White Blood Count 17.6 TH/MM3 19.8 TH/MM3 20.9 TH/MM3 21.9 TH/MM3 (4.0-11.0) (4.0-11.0) (4.0-11.0) (4.0-11.0) Red Blood Count 3.35 MIL/MM3 3.85 MIL/MM3 3.78 MIL/MM3 3.59 MIL/MM3 (4.00-5.30) (4.00-5.30) (4.00-5.30) (4.00-5.30) Hemoglobin 9.7 GM/DL 11.0 GM/DL 11.0 GM/DL 10.5 GM/DL (11.6-15.3) (11.6-15.3) (11.6-15.3) (11.6-15.3) Hematocrit 29.3 % 33.6 % 32.8 % 31.4 % (35.0-46.0) (35.0-46.0) (35.0-46.0) (35.0-46.0) Mean Corpuscular Volume 87.6 FL 87.3 FL 86.9 FL 87.4 FL (80.0-100.0) (80.0-100.0) (80.0-100.0) (80.0-100.0) Mean Corpuscular Hemoglobin 29.1 PG 28.5 PG 29.1 PG 29.3 PG (27.0-34.0) (27.0-34.0) (27.0-34.0) (27.0-34.0) Mean Corpuscular Hemoglobin 33.2 % 32.7 % 33.5 % 33.6 % Concent (32.0-36.0) (32.0-36.0) (32.0-36.0) (32.0-36.0) Red Cell Distribution Width 15.1 % 15.2 % 15.1 % 15.3 % (11.6-17.2) (11.6-17.2) (11.6-17.2) (11.6-17.2) Platelet Count 309 TH/MM3 354 TH/MM3 384 TH/MM3 380 TH/MM3 (150-450) (150-450) (150-450) (150-450) Mean Platelet Volume 6.9 FL 7.1 FL 7.1 FL 7.1 FL (7.0-11.0) (7.0-11.0) (7.0-11.0) (7.0-11.0) Neutrophils (%) (Auto) 89.4 % 87.9 % 87.2 % (16.0-70.0) (16.0-70.0) (16.0-70.0) Lymphocytes (%) (Auto) 7.0 % 8.2 % 8.2 % (9.0-44.0) (9.0-44.0) (9.0-44.0) Monocytes (%) (Auto) 3.4 % (0.0-8.0) 3.7 % (0.0-8.0) 4.1 % (0.0-8.0) Eosinophils (%) (Auto) 0.0 % (0.0-4.0) 0.0 % (0.0-4.0) 0.1 % (0.0-4.0) Basophils (%) (Auto) 0.2 % (0.0-2.0) 0.2 % (0.0-2.0) 0.4 % (0.0-2.0) Neutrophils # (Auto) 15.8 TH/MM3 17.4 TH/MM3 18.3 TH/MM3 (1.8-7.7) (1.8-7.7) (1.8-7.7) Lymphocytes # (Auto) 1.2 TH/MM3 1.6 TH/MM3 1.7 TH/MM3 (1.0-4.8) (1.0-4.8) (1.0-4.8) Monocytes # (Auto) 0.6 TH/MM3 0.7 TH/MM3 0.9 TH/MM3 (0-0.9) (0-0.9) (0-0.9) Eosinophils # (Auto) 0.0 TH/MM3 0.0 TH/MM3 0.0 TH/MM3 (0-0.4) (0-0.4) (0-0.4) Basophils # (Auto) 0.0 TH/MM3 0.0 TH/MM3 0.1 TH/MM3 (0-0.2) (0-0.2) (0-0.2) CBC Comment AUTO DIFF AUTO DIFF AUTO DIFF Differential Comment AUTO DIFF FINAL DIFF FINAL DIFF CONFIRMED MANUAL MANUAL Platelet Estimate NORMAL NORMAL NORMAL (NORMAL) (NORMAL) (NORMAL) Platelet Morphology Comment NORMAL NORMAL NORMAL (NORMAL) (NORMAL) (NORMAL) Sodium Level 146 MEQ/L 140 MEQ/L 141 MEQ/L 140 MEQ/L (136-145) (136-145) (136-145) (136-145) Potassium Level 3.8 MEQ/L 3.9 MEQ/L 4.1 MEQ/L 3.7 MEQ/L (3.5-5.1) (3.5-5.1) (3.5-5.1) (3.5-5.1) Chloride Level 114 MEQ/L 108 MEQ/L 105 MEQ/L 104 MEQ/L (98-107) (98-107) (98-107) (98-107) Carbon Dioxide Level 22.0 MEQ/L 25.5 MEQ/L 26.4 MEQ/L 26.0 MEQ/L (21.0-32.0) (21.0-32.0) (21.0-32.0) (21.0-32.0) Anion Gap 10 MEQ/L (5-15) 7 MEQ/L (5-15) 10 MEQ/L (5-15) 10 MEQ/L (5-15) Blood Urea Nitrogen 26 MG/DL (7-18) 29 MG/DL (7-18) 33 MG/DL (7-18) 31 MG/DL (7- 18) Creatinine 1.14 MG/DL 1.05 MG/DL 1.11 MG/DL 0.96 MG/DL (0.50-1.00) (0.50-1.00) (0.50-1.00) (0.50-1.00) Estimat Glomerular Filtration 46 ML/MIN (>89) 50 ML/MIN (>89) 47 ML/MIN (>89) 56 ML/MIN (>89) Rate Random Glucose 96 MG/DL 122 MG/DL 117 MG/DL 123 MG/DL (74-106) (74-106) (74-106) (74-106) Calcium Level 8.1 MG/DL 8.1 MG/DL 8.4 MG/DL 7.8 MG/DL (8.5-10.1) (8.5-10.1) (8.5-10.1) (8.5-10.1) Phosphorus Level 2.3 MG/DL 3.0 MG/DL (2.5-4.9) (2.5-4.9) Magnesium Level 1.9 MG/DL (1.5-2.5) Differential Total Cells 100 100 Counted Neutrophils % (Manual) 81 % (16-70) 83 % (16-70) Lymphocytes % 11 % (9-44) 9 % (9-44) Monocytes % 4 % (0-8) 4 % (0-8) Neutrophils # (Manual) 16.8 TH/MM3 18.2 TH/MM3 (1.8-7.7) (1.8-7.7) Metamyelocytes 1 % (0-1) 1 % (0-1) Myelocytes 3 % (0-0) 1 % (0-0) Nucleated Red Blood Cells 1 /100 WBC 1 /100 WBC (0-0) (0-0) Keratocytes OCC (NORMAL) Band Neutrophils % 2 % (0-6) Red Cell Morphology Comment NORMAL (NORMAL) Lactic Acid Level 1.2 mmol/L (0.4-2.0) Total Bilirubin 0.7 MG/DL (0.2-1.0) Aspartate Amino Transf 49 U/L (15-37) (AST/SGOT) Alanine Aminotransferase 171 U/L (10-53) (ALT/SGPT) Alkaline Phosphatase 64 U/L (45-117) Total Protein 5.2 GM/DL (6.4-8.2) Albumin 2.0 GM/DL (3.4-5.0) . Result Diagram: 09/09/16 1005 09/09/16 1005 Microbiology Microbiology Date/Time Procedure Status Source Growth 09/08/16 08:40 Gram Stain - Final Resulted Sputum Endotracheal 09/08/16 08:40 Sputum Culture Resulted Sputum Endotracheal Pending . Imaging Last Impressions Chest X-Ray 09/09/16 0000 Signed Impressions: Service Date/Time: Friday, September 09, 2016 03:25 - CONCLUSION: No change with persistent tiny apical pneumothorax on the right. Bibasilar consolidation. Scottie Miller Jr., MD Brain MRI 09/07/16 0000 Signed Impressions: Service Date/Time: Wednesday, September 07, 2016 13:58 - CONCLUSION: Moderate atrophy and white matter disease. Efrain South MD Shoulder X-Ray 09/03/16 0000 Signed Impressions: Service Date/Time: August 12:40 - CONCLUSION: There is a displaced fracture through the neck of the proximal humerus. The humeral head is either subluxed or displaced posteriorly. If clinically indicated, a noncontrast CT scan of the right shoulder could be performed for further evaluation. Mushtaq Hernandez MD Head CT 09/02/16 0959 Signed Impressions: Service Date/Time: Friday, September 02, 2016 12:01 - CONCLUSION: 1. No focal or acute intracranial hemorrhage. 2. Bilateral cortical atrophy and chronic white matter changes. 3. Chronic sinus disease. Mushtaq Hernandez MD Humerus X-Ray 09/02/16 0000 Signed Impressions: Service Date/Time: Friday, September 02, 2016 12:25 - CONCLUSION: Fracture subcapital and humeral head. Richie Mtz MD Elbow X-Ray 09/02/16 0000 Signed Impressions: Service Date/Time: Friday, September 02, 2016 12:29 - CONCLUSION: No acute bony injury Richie Mtz MD CT Angiography 09/02/16 0000 Signed Impressions: Service Date/Time: Friday, September 02, 2016 12:01 - CONCLUSION: 1. No evidence of PE. 2. Hyperaeration of the lung miller suggestive of COPD. 3. A few small scattered interstitial infiltrates in the right lung. Mushtaq Hernandez MD . Procedures * Intubation/mechanical ventilation * PICC line placement * Chest tube placement * Central line placement . . Assessment and Plan Disease Oriented Problem List: (1) Respiratory failure (2) COPD (chronic obstructive pulmonary disease) Comment: Underlying COPD was mild . She is a halfway smoker but had not had hospitalizations for respiratory illness and was not on COPD meds. . (3) Sepsis Comment: Had initially been improving, but now with evidence that septic shock is recurring. . (4) UTI (urinary tract infection) Comment: Cx grew out E coli on 09/02/16. . (5) Altered mental status (6) Pneumothorax Comment: Chest tube in place. Resolving. . (7) Humerus fracture Comment: Non-operative management recommended by ortho. . (8) Renal cell cancer Comment: Resolved many years ago. . (9) Hypertension (10) Anemia Symptom Scale: (1) Pain 0-10 Scale: Unable to quantify Comment: Patient is intubated and nonverbal. She is unable to locate, quantify , qualify her pain. Family reports that her main pain syndrome is from her fractured arm. This pain will be quite severe particularly with movement. Family reports there were no pain syndromes prior to her fall. Here in the intensive care unit, other sources of pain could include the following: Prolonged bedbound status; urethral catheterization; vascular catheterizations; orotracheal intubation. . (2) Dyspnea 0-10 Scale: Unable to quantify Comment: Patient is currently intubated and mechanically ventilated. She is tolerating CPAP most of day today. . . Pertinent Non-Medical Issues Psychosocial: Good psychosocial support from her 3 local children. Spiritual: Patient is [employer]an. Family reports buddhism is an important part of her life. Per family request we will have a grocery clerk selling visit. Legal: The patient has a living will and a hard copy is on the chart. The designated health care surrogate is her sonGary. Ethical issues impacting care: The patient is currently incapacitated to make her own health care decisions. It is unclear if she will be able to regain such capacity. . Important Contacts * Jack Queen (son and the health care surrogate) * Flor Crouch (daughter) [phone] . Prognosis Ms Queen is 81 years old and is a current smoker but, per family, had been doing reasonably well in terms of her functional status. She used a walker to ambulate but was able to take care of all her ADLs. She was very hard of hearing and otherwise was cognitively sharp. She had a very sudden decline since experiencing a fall in which she fractured her right humerus. It is felt that her initial altered mental status might have been due to a combination of her illness and tramadol usage. At this point, her encephalopathy is probably multifactorial. New ? of seizure activity noted on EEG of 10/23. CT imaging of the chest showed small infiltrates so her pulmonary status is probably pneumonia on chronic mild COPD. She also had a right pneumothorax requiring a chest tube. CXR of 09/08/16 shows developing infiltrate and she became hypotensive again requiring norepinephrine in the early AM 09/09/16. Her urinary tract infection is probably resolved by now. As her COPD was relatively mild (no history of respiratory hospitalization; no home O2 usage; no regular use of pulmonary medications), there is really no other obvious underlying terminal illness. As cancers prevalent in the family, as the patient herself underwent treatment for kidney cancer, and as there is been a 50-60 pound weight loss over the last years, an occult malignancy is certainly a possibility. Family reports, however, that the patient sees her doctor on a regular basis and there has been no reported concern for a new cancer or recurrence. . Code Status: Alternative Code Plan == CODE STATUS: Alternate code == Decision-making: The patient is incapacitated to make her own health care decisions and it does not appear likely that she will regain such capacity in the near future if at all. Her son, Jack, is the designated health care surrogate. He visits regularly, has a good understanding of the patient's illness, and has accepted the role of health care surrogate. Though he is the listed surrogate, he is in close communication with his 2 sisterKyle and Eleonora -- and includes them in the decision-making process. The other sibling, Zaid, is estranged from the family and there is no contact information. == Goals of medical treatment: As there is no clear-cut underlying terminal illness, Jack, the health care surrogate, is wanting to give his mother every chance to improve. He wants aggressive care to continue. His sisters, apparently, are more ready to transition to "comfort measures." The most immediate question is what with the patient want at this time if we can medically wean her and then she developed some respiratory distress again which she want to be reintubated or not? Most likely, if the patient would need reintubation, she would probably need tracheostomy. Jack has spoken to both sisters. His decision is that he would want reintubation if necessary after extubation even if that would mean she would need to go on to tracheostomy. He , personally, had been intubated and thought the process of whole time feeling like he was gagging and choking. Jack will need close communication as the clinical case evolves. The possible seizures and recurrence of shock make the medical team less optimistic for meaningful recovery in spite of her reasonably good pre-fall functional status. == Pain: Multiple possible sources of pain are noted above. Patient has been on fentanyl for sedation and pain control. It appears to work. Keeping the patient comfortable while preventing oversedation and preventing possible delirium from opiates will be challenging. I would recommend that fentanyl continued to be the drug of choice for pain. If she does not need the fentanyl for sedation on the ventilator, would use the fentanyl on a PRN basis particularly for her fracture pain. == Dyspnea: Patient's pneumothorax is resolving with chest tube placement. She has apparent pneumonia on top of some underlying mild COPD. Her ability to tolerate CPAP trials is varying greatly from day to day. Medical weaning was looking feasible until EEG suggested seizures and the recurrence of shock on the AM of 09/09/16. Pt will probably require tracheostomy if aggressive care is sought. == Encephalopathy: As noted above this is likely multifactorial. Some of the agitation when off sedation could conceivably be secondary to her IV steroids. As noted above, opiate usage itself may have caused some delirium and altered mental status. Her EEG suggests seizure activity may be a factor. Patient now on levitiracetam. == May want to delay extubation until we know whether this is seizure activity and whether it is easily controllable. She is likely going to have trouble protecting her airway while seizing. We may have to go directly to tracheostomy if aggressive care continues to be desired. If neurology is able to give a better prognosis for meaningful recovery, family will better be able to determine goals. For example, if she is likely to have refractory seizures , then they may opt against further aggressive care and trach. == Palliative care will continue to follow to assist with symptom management and to further clarify goals of medical treatment as the clinical case evolves. . Attestation To help prompt me to consider important information that might be impacting today's encounter and assessment, information from prior notes written by myself or my colleagues may have been "brought forward" into today's note. My signature on this note, however, is an attestation that I personally performed the exam, history, and/or decision-making noted today, and, unless otherwise indicated, the interactions with patient, family, and staff as well as the review of records all occurred today. I also attest that the listed assessment and stated plan reflect my best clinical judgment today based on the combination of historical information, prior notes, and today's exam/ interactions. When time spent is documented, it refers only to time spent today by the signer, or if indicated, combined time spent today by collaborating physician/nurse practitioner. . Kranthi Coon MD Sep 09, 2016 11:14
--- NOTE | 2016-09-09 11:52 | MG ---
cc: LATISHA HAYWOOD M.D. Lab No: [id number] Date: 09/09/2016 : 1935 Sex: F TECHNIQUE This is a 17-channel EEG. DESCRIPTION The background rhythm reveals generalized slow activity and mainly a delta frequency at 3-4 Hz, but also theta range 5-6 Hz. Eye movement artifact is identified. Muscle artifact is identified as well. No lateralizing features are seen and no epileptiform discharges are identified. Hyperventilation was not performed. Photic stimulation results in a poor driving response. INTERPRETATION Abnormal study on the basis of generalized slowing, consistent with a moderate to severe encephalopathic state. MD IRENA Mark/RAINA /11:11 AM /11:47 AM
[2016-09-09] MEDS: NOREPINEPHRINE-DEXTROSE DRIP 250 ML IV SCH ×3 (12:19→21:59)
--- NOTE | 2016-09-09 12:23 | EKG ---
Date Performed: 09/09/2016 Time Performed: 10:06:47 PTAGE: 81 years EKG: Sinus rhythm WITH OCCASIONAL VENTRICULAR PREMATURE COMPLEXES LEFT BUNDLE BRANCH BLOCK ABNORMAL ECG PREVIOUS TRACING : 09/02/2016 10.54 DOCTOR: Konstantin Liu Interpretating Date/Time 09/09/2016 12:20:23
[2016-09-09 22:50] LABS: CKMB 2.8 NG/ML (0.5-3.6)
[2016-09-10] VITALS (15 sets, daily range): BP systolic 100–142; BP diastolic 50–61; PULSE 71–100; RESP 14–20; TEMP 97.1–98; O2SAT 83–100
[2016-09-10] MEDS: fentaNYL DRIP 250 ML IV SCH ×2 (02:46→20:40)
[2016-09-10] MEDS: NOREPINEPHRINE-DEXTROSE DRIP 250 ML IV SCH ×2 (02:46→06:30)
[2016-09-10] MEDS: CHLORHEXIDINE GLUCONATE 2 % 1 PACK (2 CLOTHS) TOP SCH (02:47)
[2016-09-10] MEDS: LEVOTHYROXINE SODIUM 88 MCG TAB PO SCH (05:54)
[2016-09-10] MEDS: PIPERACIL-TAZO 3.375 GM PREMIX 50 ML IV SCH ×2 (05:55→11:00)
[2016-09-10] MEDS: INSULIN NovoLIN REGULAR SUPPLEMENTAL SCALE SQ SCH ×2 (05:57→12:00)
[2016-09-10] MEDS: FREE WATER G-TUBE SCH (09:00)
[2016-09-10] MEDS: levETIRAcetam 1000 MG INJ 100 ML IV SCH ×2 (09:14→20:41)
[2016-09-10] MEDS: methylPREDNISolone SOD SUCC 40 MG/1 ML VIAL IV PUSH SCH ×2 (09:15→20:41)
[2016-09-10] MEDS: PANTOPRAZOLE SODIUM 40 MG VIAL IV SCH (09:15)
[2016-09-10] MEDS: CHLORHEXIDINE 0.12% (ORAL KIT) 15 ML CUP MT SCH ×2 (09:16→20:00)
--- NOTE | 2016-09-10 11:03 | HHI.CCPN ---
Subjective Remarks/Hospital Course The patient is an 81-year-old female with a past medical history of COPD, active smoker, hypertension and hypothyroidism. She presented to [facility] ED with her family for altered mental status and respiratory distress. According to the patient's daughter she fell last Wednesday and broke her right arm. She was taken to [facility] ED and was found to have a right humerus fracture. She was discharged home with an arm sling and advised to follow-up with an orthopedic surgeon. In addition the patient was taking tramadol one tablet every four hours as needed for pain for the past three days. The patient has been combative and agitated at home according to the daughter and when she arrived to the ED she was found to have an O2 saturation in the 80s on room in triage. She was intubated and placed on full mechanical ventilation. The patient was given etomidate and succinylcholine for intubation. A chest x-ray post intubation showed ET tube above the christianne, hyperaeration of both lungs with no acute pulmonary infiltrates. She also underwent a CT angiogram of the chest which showed no evidence of PE, however, it showed a few small scattered interstitial infiltrates in the right lung. The patient also had CT scan of the brain which showed no focal or acute intracranial hemorrhage. She received 2 liters of crystalloids in the ED in addition to vancomycin and Zosyn. Her laboratory data is significant for leukocytosis with a WBC of 14.1, however, the patient is afebrile. Lactic acid measured at 1.4 and her urinalysis was compatible with a UTI. She had 59 wbc's with moderate bacteria, positive nitrite and small leukocyte esterase. X-ray of her right humerus showed a subcapital and humeral head fracture. When seen the patient is sedated with Diprivan and on full mechanical ventilation. Current blood pressure is 119 /54 with a pulse of 59. ABG post intubation showed a pH of 7.33, CO2 39, PAO2 442, bicarb 20, saturation 96% on assist control ventilation with a respiratory rate of 18, tidal volume 500, PEEP of 5, FIO2 100%. 09/03 No acute events overnight. Sedated with Fentanyl and intubated. 09/04 Patient remains sedated with Fentanyl and intubated. ABG showed mild resp acidosis on CPAP trials yesterday. 09/05 Patient is sedated with Diprivan, Fentanyl and intubated. On Levophed [address] place. Afebrile. 09/06 Patient remains sedated with Fentanyl and intubated. Afebrile. 09/07 No acute events overnight. Sedated and intubated. Afebrile. For MRI brain and EEG today per neurology. 09/08 Patient is sedated with Fentanyl and intubated. Had air leak in CT when repositioned, CXR from early this morning showed stable tint right apical PTX. MRI brain from yesterday showed atrophy. 09/09: Patient remains sedated, orally intubated on mechanical ventilation. Became hypotensive this morning for which receiving fluid bolus and started on Levophed for pressor support. 09/10: Remains sedated, arousable, orally intubated on mechanical ventilation. On Levophed which is being titrated down. Failed C Pap trial yesterday. Objective Vital Signs Date Time Temp Pulse Resp B/P Pulse Ox O2 Delivery O2 Flow Rate FiO2 09/10/16 08:00 100 40 09/10/16 06:00 75 09/10/16 04:00 98.0 18 123/55 Intake and Output 09/09/16 09/09/16 09/09/16 07:59 15:59 23:59 Intake Total 426 ml 1372 ml 849 ml Output Total 500 ml 430 ml 400 ml Balance -74 ml 942 ml 449 ml Result Diagram: 09/09/16 1005 09/09/16 1005 Other Results Microbiology Date/Time Procedure Status Source Growth 09/08/16 08:40 Gram Stain - Final Complete Sputum Endotracheal 09/08/16 08:40 Sputum Culture - Final Complete Sputum Endotracheal HEAVY GROWTH NORMAL RESPIRATORY TYSHAWN Imaging Last Impressions Chest X-Ray 09/07/16 0000 Signed Impressions: Service Date/Time: Wednesday, September 07, 2016 08:23 - CONCLUSION: Small right pneumothorax. Efrain South MD Brain MRI 09/07/16 0000 Signed Impressions: Service Date/Time: Wednesday, September 07, 2016 13:58 - CONCLUSION: Moderate atrophy and white matter disease. Efrain South MD Shoulder X-Ray 09/03/16 0000 Signed Impressions: Service Date/Time: August 12:40 - CONCLUSION: There is a displaced fracture through the neck of the proximal humerus. The humeral head is either subluxed or displaced posteriorly. If clinically indicated, a noncontrast CT scan of the right shoulder could be performed for further evaluation. Mushtaq Hernandez MD Head CT 09/02/16 0959 Signed Impressions: Service Date/Time: Friday, September 02, 2016 12:01 - CONCLUSION: 1. No focal or acute intracranial hemorrhage. 2. Bilateral cortical atrophy and chronic white matter changes. 3. Chronic sinus disease. Mushtaq Hernandez MD Humerus X-Ray 09/02/16 0000 Signed Impressions: Service Date/Time: Friday, September 02, 2016 12:25 - CONCLUSION: Fracture subcapital and humeral head. Richie Mtz MD Elbow X-Ray 09/02/16 0000 Signed Impressions: Service Date/Time: Friday, September 02, 2016 12:29 - CONCLUSION: No acute bony injury Richie Mtz MD CT Angiography 09/02/16 0000 Signed Impressions: Service Date/Time: Friday, September 02, 2016 12:01 - CONCLUSION: 1. No evidence of PE. 2. Hyperaeration of the lung miller suggestive of COPD. 3. A few small scattered interstitial infiltrates in the right lung. Mushtaq Hernandez MD Objective Remarks GENERAL: Patient is 81 yo intubated and sedated. SKIN: Warm and dry. HEAD: Normocephalic. EYES: No scleral icterus. No injection or drainage. NECK: Supple, trachea midline. No JVD or lymphadenopathy. Orally intubated. CARDIOVASCULAR: Regular rate and rhythm without murmurs, gallops, or rubs. RESPIRATORY: On mechanical ventilation, Breath sounds equal bilaterally. Scattered rhonchi. Right CT in place- air leak present GASTROINTESTINAL: Abdomen soft, non-tender, nondistended. MUSCULOSKELETAL: No cyanosis, or edema. Neuro: Sedated, encephalopathic, intubated A/P Assessment and Plan 1. Acute respiratory failure on mechanical ventilation 2. Encephalopathy 3. Urinary tract infection. 4. Leukocytosis. 5. Right humerus fracture. 6. Status post fall. 7. Hypothyroidism. 8. COPD. 9. hypotension- suspect sepsis 10 Right sided PTX s/p Chest tube placement on 09/04 PLAN Neuro: On fentanyl infusion for sedation and analgesia while intubated. Daily sedation vacation. Monitor neuro status closely. CT brain showed no evidence of any acute intracranial findings. Neurology is following. Follow-up EEG 09/07: MRI brain: Atrophy no acute process. On Keppra 1000mg Q12 Pulm: Continue with vent support and maintain sats above 92%. Bronchodilators, Solu-Medrol 40 mg IV q12 ICU vent bundle, CPAP trials as dorie Right CT placed 09/04 for right sided PTX, repeat CXR showed resolution of PTX CXR 09/09 stable tiny right apical PTX CV: Monitor HR and BP and maintain MAP> 65 mmHg. Continue Levophed for pressor support. Borderline troponin elevation noted. : Monitor renal function, I's and O's, and electrolyte replacement per protocol. On Free water 200ml Q12, monitor sodium level. GI: On Protonix 40 mg IV daily for GI prophylaxis. Glucerna 1.5 with goal rate 45ml/hr ID: Continue with abx(Zosyn) and monitor for signs of infection( fever and WBC) check sputum cx 09/02 Urine cx: E.coli' 09/02 BC: NGTD Heme: Monitor CBC. [place]: Orthopedic surgery is following regarding right humerus fracture- non-op treatment per ortho. Endo: SSI with Accu-Cheks q.6h. for glycemic control Continue with Synthroid 88 mcg daily. TSH: 1.28. GI prophylaxis with Protonix 40 mg daily and DVT prophylaxis with SCDs. Not on chemical anticoagulation prophylaxis for now given extensive ecchymosis of her right upper extremity. LUE PICC line placed 09/05 Palliative care on case 09/06 Dr. Cervantes spoke to patient's son Jack Queen(healthcare surrogate) along with his sisters and updated them on her condition. They agreed to make patient DNR ( Alternative code) they do not want any CPR, chest compression or cardiac resuscitation. CCT 30 mins excluding procedures. Edin Laird MD Sep 10, 2016 11:03
[2016-09-10] MEDS ORDERED: fentaNYL DRIP 250 ML IV SCH (17:15)
[2016-09-10] MEDS ORDERED: HYOSCYAMINE 0.5 MG/ML AMP IV ONE (17:15)
[2016-09-10] MEDS ORDERED: HYDROmorphone HCL PF 2 MG/ML VIAL IV ONE ×2 (17:15→17:45)
[2016-09-10] MEDS ORDERED: LORazepam 2 MG/ML VIAL IV ONE ×2 (17:15→17:45)
[2016-09-10] MEDS ORDERED: LORazepam 2 MG/ML VIAL IV PRN ×2 (17:45)
[2016-09-10] MEDS ORDERED: LORazepam 2 MG/ML VIAL IVS PRN (17:45)
[2016-09-10] MEDS ORDERED: HYOSCYAMINE 0.5 MG/ML AMP IV PRN (17:45)
[2016-09-10] MEDS ORDERED: FUROSEMIDE 20 MG/2 ML VIAL IV PRN (17:45)
[2016-09-10] MEDS ORDERED: BISACODYL 10 MG SUPP PR PRN (17:45)
[2016-09-10] MEDS ORDERED: ACETAMINOPHEN 650 MG SUPP PR PRN (17:45)
[2016-09-10] MEDS ORDERED: HYDROmorphone HCL PF 2 MG/ML VIAL IV PRN (17:45)
--- NOTE | 2016-09-10 19:36 | HHI.HCPN ---
Reason for visit a. To assist with evaluation and management of symptoms including: pain; dyspnea; encephalopathy b. To assist medical decision maker(s) with: better understanding of current medical conditions; weighing benefits/burdens of medical treatment options; making medical treatment decisions. . Subjective/Interval History No significant improvement overnight. Still requiring Norepinephrine for pressor support. Becomes extremely agitated with attempts to wean fentanyl. When awake, is not tracking and is unable to follow commands. . From Dr. Coon's initial consultation note of 09/08/15... . Ms. Queen is an 81-year-old female active smoker with a known past medical history of renal cell cancer; COPD; hypothyroidism; and hypertension who was brought by her family to the [facility] Emergency Department on 09/02/16 because of respiratory distress and altered mental status. The patient's rather brisk decline began on 08/30/16 when the patient fell and fractured her right arm. She was taken to [facility] emergency room where x- rays confirmed a fractured humerus. The patient was discharged home and instructed to follow-up with an orthopedist. The patient was using tramadol 50 mgone tablet every 4 hours as needed for pain from the fracture. The orthopedic follow-up had not taken place and the night prior to the current ER presentation, the patient's daughter noted the patient to be confused with almost incoherent speech. She was also intermittently combative. She was also struggling to breathe. The daughter also noted that the patient would have episodes where her head would flop back and her eyes would roll back. Though the patient is a long-term smoker, she has never been on home 02 or been on nebulizer treatments or pulmonary meds. She has not been hospitalized for respiratory problems. She has not had any significant pain syndromes prior to the recent fall and fracture. She has not been on any type of regular analgesics prior to the recent fracture. Her arm pain since the fracture had been significantly worse with any movement. In the emergency department initial vital signs revealed the following... Temperature 98.5; pulse 71; respiratory rate 18; blood pressure 127/78; pulse oximetry was initially in the 80s. Physical examination in the emergency department noted the following: Patient was poorly responsive, frail appearing and in severe respiratory distress. Extensive ecchymoses were noted on the right upper extremity with swelling. There was also bruising on the left side of the face and the temporal area. The patient was using accessory muscles for respiration and there was diminished air movement bilaterally. There was jugular venous distention on the sitting position. The patient was quite anxious appearing. Examination of the eyes, ENT, cardiovascular, GI, were otherwise unremarkable Initial diagnostic studies revealed the following: * CBC showed WBC 14.1; hemoglobin 13.6; platelet count 404 * Coagulation profile showed PT 10.3; INR 0.9; * Chemistry panel showed sodium 134; potassium 4.2; chloride 101; CO2 24.3; anion gap 9; BUN 12; creatinine 0.85; glucose 104; lactic acid 1.4; calcium 8.6 * Liver function studies show total bilirubin 0.5; AST 19; ALT 20; alkaline phosphatase 75; ammonia less than 10; total protein 7.0; albumin 2.8 * Cardiac serology showed total CK 201; CK-MB 1.2; CK-MB percent 0.6%; troponin less than 0.02 * TSH was 1.28 * Basic urine drug screen was negative for opiates/barbiturate/amphetamine/benzo /cocaine/cannabinoids * EtOH level was less than 3 years * Urinalysis revealed cloudy urine with moderate occult blood; positive nitrites ; small leukocyte esterase; 59 WBCs; and moderate bacteria * EKG showed a normal sinus rhythm with a left bundle branch block and left axis deviation. There is first-degree AV block * Chest x-ray showed hyperaeration of both lungs with no acute pulmonary infiltrates * Arterial blood gases showed pH 7.33; PCO2 39; PaO2 442; bicarbonate 20; base excess -5 on the ventilator at 100% FiO2 * CT angiogram showed no evidence of pulmonary embolus. The CT, however, showed a few small scattered interstitial infiltrates in the right lung. * CT imaging of the brain showed no significant findings. * X-ray of the right humerus showed a subcapital and humeral head fracture. As the patient was ventilating and oxygenating poorly in the emergency department, intubation was felt to be necessary. This was accomplished after discussion with the patient's daughter. Shortly after intubation the patient was started on intravenous Zosyn and vancomycin to cover for possible sepsis. A right external jugular central line was placed. She was also given 2 L of IV fluid. Following sedation for intubation purposes the patient's blood pressure dropped to 58 systolic. Propofol was stopped and the pressure slowly improved. Critical care was consulted. The patient was transferred to the medical intensive care unit. A fentanyl infusion was started for sedation and analgesia while intubated. Bronchodilators and intravenous steroids were started. On 09/04/16 a pneumothorax was noted and chest tube was placed in the right side. Neurology was consulted for the altered mental status. Most likely etiology was felt to be encephalopathy from one or a combination of hypoxia / hypoperfusion / ischemia Orthopedics was consulted for the arm fracture. She was not felt to be a surgical candidate. Non -operative treatment was recommended - sling for comfort / PT for passive ROM and pendulums. The patent was found to have a prolapsed bladder and urology was consulted. No surgical intervention was recommended. Urology felt the patient might benefit from a pessary that could be arranged for by post-discharge f/u with gynecology. Ms. Queen remains in the medical intensive care unit sedated and intubated. An MRI of the brain performed today revealed atrophic changes but no evidence of infarction, mass, etc. White blood count which peaked at 26.8 is now down to 17.6. Hemoglobin has dropped to 9.7. Her urine culture grew out Escherichia coli. She was able to tolerate several hours of CPAP trial just two days ago, but failed after less than an hour today. . Family/friend interactions Spoke with family at bedside in AM and again late this afternoon. Spoke with family both alone and with Dr. Laird. Family feels unanimously that given the patient has shown little sign of improvement that they believe she would want to be with drawn from life support at this time, forego further aggressive care , and transition to "comfort measures only." Questions were answers. I provided anticipatory guidance on the process of withdrawal from life support. . Advance Directives Living Will: Copy in medical record Health Care Surrogate: Copy in medical record Durable Power of Case Monitor: Never completed Advance Directive Specifics Date completed: The living will document which includes information regarding health care surrogate designation was completed on 03/12/1999 . Health Care Surrogate(s): The patient has designated her son, Jack Queen, as health care surrogate. . Documented care wishes: The patient has completed a fairly standard [place] living will. It indicates she would not want life prolonging measures should she have a terminal condition , end-stage condition, or persistent vegetative state. She would also not want to have artificial nutrition/hydration in such cases. . Significant change in goals: Family has all decided to go forward today with withdrawal of life support. . Objective Vital Signs Date Time Temp Pulse Resp B/P Pulse Ox O2 Delivery O2 Flow Rate FiO2 09/10/16 16:00 40 09/10/16 16:00 79 09/10/16 16:00 97.1 79 20 124/60 99 09/10/16 14:00 71 09/10/16 12:00 40 09/10/16 12:00 97.3 100 20 105/52 99 09/10/16 12:00 100 09/10/16 11:49 100 40 09/10/16 10:00 75 09/10/16 08:00 97.5 75 20 100/50 100 09/10/16 08:00 100 40 09/10/16 08:00 40 09/10/16 08:00 75 09/10/16 06:00 75 09/10/16 04:15 100 40 09/10/16 04:00 98.0 78 18 123/55 100 09/10/16 04:00 78 09/10/16 04:00 40 09/10/16 02:00 78 09/10/16 00:00 97.3 71 18 142/61 100 09/10/16 00:00 71 09/10/16 00:00 40 09/09/16 22:20 100 40 09/09/16 22:00 80 09/09/16 20:00 97.0 98 26 109/63 100 09/09/16 20:00 98 09/09/16 20:00 40 09/09/16 19:15 100 40 Intake & Output 09/10/16 09/10/16 07:00 19:00 Intake Total 1636 ml 541 ml Output Total 1075 ml 620 ml Balance 561 ml -79 ml Intake IV Total 1274 ml 394 ml Tube Feeding 362 ml 147 ml Output Urine Total 1050 ml 600 ml Tube Feeding Residual Discard 0 ml 0 ml Chest Tube Drainage Total 25 ml 20 ml # Bowel Movements 2 1 . Physical Exam CONSTITUTIONAL/GENERAL: This is an adequately nourished frail appearing patient who is intubated , mechanically ventilated, and sedated in an MICU bed. When eyes are open, she is not tracking and not following commands. Intermittent agitation. TUBES/LINES/DRAINS: Orogastric tube; orotracheal tube; Morse catheter; left internal jugular central line; PICC line; SCDs; soft restraints. SKIN: No jaundice, rashes. Ecchymoses on right side of face and right upper extremity.. No wounds seen anteriorly. Skin temperature appropriate. Not diaphoretic. HEAD: Atraumatic. Normocephalic. EYES: Pupils equal and round. No scleral icterus. No injection or drainage. Fundi not examined. ENT: Nose without bleeding or purulent drainage. Throat without visible erythema, exudates, masses, or lesions though difficult to evaluate due to intubations. NECK: Trachea midline. CARDIOVASCULAR: Regular rate and rhythm without murmurs, gallops, or rubs. RESPIRATORY/CHEST: Symmetric, unlabored respirations. Breath sounds equal bilaterally but diminished. Lungs clear. Chest tube on the right. GASTROINTESTINAL: Abdomen soft, non-tender, nondistended. No hepato-splenomegaly , or palpable masses. No guarding. Bowel sounds present but hypoactive. GENITOURINARY: Without palpable bladder distension. Morse catheter in place. MUSCULOSKELETAL: Extremities without clubbing, cyanosis. There is edema in both arms right greater than left. LYMPHATICS: Not examined. NEUROLOGICAL: Intermittent agitation when awake. Not tracking. Not following commands. PSYCHIATRIC: Unable to adequately evaluate due to level of responsiveness and because she is nonverbal/intubated. . Diagnostic Tests Laboratory Laboratory Tests Test 09/08/16 09/09/16 09/09/16 09/09/16 04:45 04:08 10:05 19:38 White Blood Count 19.8 TH/MM3 20.9 TH/MM3 21.9 TH/MM3 (4.0-11.0) (4.0-11.0) (4.0-11.0) Red Blood Count 3.85 MIL/MM3 3.78 MIL/MM3 3.59 MIL/MM3 (4.00-5.30) (4.00-5.30) (4.00-5.30) Hemoglobin 11.0 GM/DL 11.0 GM/DL 10.5 GM/DL (11.6-15.3) (11.6-15.3) (11.6-15.3) Hematocrit 33.6 % 32.8 % 31.4 % (35.0-46.0) (35.0-46.0) (35.0-46.0) Mean Corpuscular Volume 87.3 FL 86.9 FL 87.4 FL (80.0-100.0) (80.0-100.0) (80.0-100.0) Mean Corpuscular Hemoglobin 28.5 PG 29.1 PG 29.3 PG (27.0-34.0) (27.0-34.0) (27.0-34.0) Mean Corpuscular Hemoglobin 32.7 % 33.5 % 33.6 % Concent (32.0-36.0) (32.0-36.0) (32.0-36.0) Red Cell Distribution Width 15.2 % 15.1 % 15.3 % (11.6-17.2) (11.6-17.2) (11.6-17.2) Platelet Count 354 TH/MM3 384 TH/MM3 380 TH/MM3 (150-450) (150-450) (150-450) Mean Platelet Volume 7.1 FL 7.1 FL 7.1 FL (7.0-11.0) (7.0-11.0) (7.0-11.0) Neutrophils (%) (Auto) 87.9 % 87.2 % (16.0-70.0) (16.0-70.0) Lymphocytes (%) (Auto) 8.2 % 8.2 % (9.0-44.0) (9.0-44.0) Monocytes (%) (Auto) 3.7 % (0.0-8.0) 4.1 % (0.0-8.0) Eosinophils (%) (Auto) 0.0 % (0.0-4.0) 0.1 % (0.0-4.0) Basophils (%) (Auto) 0.2 % (0.0-2.0) 0.4 % (0.0-2.0) Neutrophils # (Auto) 17.4 TH/MM3 18.3 TH/MM3 (1.8-7.7) (1.8-7.7) Lymphocytes # (Auto) 1.6 TH/MM3 1.7 TH/MM3 (1.0-4.8) (1.0-4.8) Monocytes # (Auto) 0.7 TH/MM3 0.9 TH/MM3 (0-0.9) (0-0.9) Eosinophils # (Auto) 0.0 TH/MM3 0.0 TH/MM3 (0-0.4) (0-0.4) Basophils # (Auto) 0.0 TH/MM3 0.1 TH/MM3 (0-0.2) (0-0.2) CBC Comment AUTO DIFF AUTO DIFF Differential Total Cells 100 100 Counted Neutrophils % (Manual) 81 % (16-70) 83 % (16-70) Lymphocytes % 11 % (9-44) 9 % (9-44) Monocytes % 4 % (0-8) 4 % (0-8) Neutrophils # (Manual) 16.8 TH/MM3 18.2 TH/MM3 (1.8-7.7) (1.8-7.7) Metamyelocytes 1 % (0-1) 1 % (0-1) Myelocytes 3 % (0-0) 1 % (0-0) Nucleated Red Blood Cells 1 /100 WBC 1 /100 WBC (0-0) (0-0) Differential Comment FINAL DIFF FINAL DIFF MANUAL MANUAL Platelet Estimate NORMAL NORMAL (NORMAL) (NORMAL) Platelet Morphology Comment NORMAL NORMAL (NORMAL) (NORMAL) Keratocytes OCC (NORMAL) Sodium Level 140 MEQ/L 141 MEQ/L 140 MEQ/L (136-145) (136-145) (136-145) Potassium Level 3.9 MEQ/L 4.1 MEQ/L 3.7 MEQ/L (3.5-5.1) (3.5-5.1) (3.5-5.1) Chloride Level 108 MEQ/L 105 MEQ/L 104 MEQ/L (98-107) (98-107) (98-107) Carbon Dioxide Level 25.5 MEQ/L 26.4 MEQ/L 26.0 MEQ/L (21.0-32.0) (21.0-32.0) (21.0-32.0) Anion Gap 7 MEQ/L (5-15) 10 MEQ/L (5-15) 10 MEQ/L (5-15) Blood Urea Nitrogen 29 MG/DL (7-18) 33 MG/DL (7-18) 31 MG/DL (7-18) Creatinine 1.05 MG/DL 1.11 MG/DL 0.96 MG/DL (0.50-1.00) (0.50-1.00) (0.50-1.00) Estimat Glomerular Filtration 50 ML/MIN (>89) 47 ML/MIN (>89) 56 ML/MIN (>89) Rate Random Glucose 122 MG/DL 117 MG/DL 123 MG/DL (74-106) (74-106) (74-106) Calcium Level 8.1 MG/DL 8.4 MG/DL 7.8 MG/DL (8.5-10.1) (8.5-10.1) (8.5-10.1) Phosphorus Level 3.0 MG/DL (2.5-4.9) Band Neutrophils % 2 % (0-6) Red Cell Morphology Comment NORMAL (NORMAL) Lactic Acid Level 1.2 mmol/L (0.4-2.0) Total Bilirubin 0.7 MG/DL (0.2-1.0) Aspartate Amino Transf 49 U/L (15-37) (AST/SGOT) Alanine Aminotransferase 171 U/L (10-53) (ALT/SGPT) Alkaline Phosphatase 64 U/L (45-117) Total Creatine Kinase 324 U/L 343 U/L (26-192) (26-192) Creatine Kinase MB 3.0 NG/ML 2.8 NG/ML (0.5-3.6) (0.5-3.6) Creatine Kinase MB % 0.9 % (0.0-4.0) 0.8 % (0.0-4.0) Troponin I 0.26 NG/ML 0.27 NG/ML (0.02-0.05) (0.02-0.05) Total Protein 5.2 GM/DL (6.4-8.2) Albumin 2.0 GM/DL (3.4-5.0) . Result Diagram: 09/09/16 1005 09/09/16 1005 Microbiology Microbiology Date/Time Procedure Status Source Growth 09/08/16 08:40 Gram Stain - Final Complete Sputum Endotracheal 09/08/16 08:40 Sputum Culture - Final Complete Sputum Endotracheal HEAVY GROWTH NORMAL RESPIRATORY TYSHAWN Imaging Last Impressions Chest X-Ray 09/09/16 0000 Signed Impressions: Service Date/Time: Friday, September 09, 2016 03:25 - CONCLUSION: No change with persistent tiny apical pneumothorax on the right. Bibasilar consolidation. Scottie Miller Jr., MD Brain MRI 09/07/16 0000 Signed Impressions: Service Date/Time: Wednesday, September 07, 2016 13:58 - CONCLUSION: Moderate atrophy and white matter disease. Efrain South MD Shoulder X-Ray 09/03/16 0000 Signed Impressions: Service Date/Time: August 12:40 - CONCLUSION: There is a displaced fracture through the neck of the proximal humerus. The humeral head is either subluxed or displaced posteriorly. If clinically indicated, a noncontrast CT scan of the right shoulder could be performed for further evaluation. Mushtaq Hernandez MD Head CT 09/02/16 0959 Signed Impressions: Service Date/Time: Friday, September 02, 2016 12:01 - CONCLUSION: 1. No focal or acute intracranial hemorrhage. 2. Bilateral cortical atrophy and chronic white matter changes. 3. Chronic sinus disease. Mushtaq Hernandez MD Humerus X-Ray 09/02/16 0000 Signed Impressions: Service Date/Time: Friday, September 02, 2016 12:25 - CONCLUSION: Fracture subcapital and humeral head. Richie Mtz MD Elbow X-Ray 09/02/16 0000 Signed Impressions: Service Date/Time: Friday, September 02, 2016 12:29 - CONCLUSION: No acute bony injury Richie Mtz MD CT Angiography 09/02/16 0000 Signed Impressions: Service Date/Time: Friday, September 02, 2016 12:01 - CONCLUSION: 1. No evidence of PE. 2. Hyperaeration of the lung miller suggestive of COPD. 3. A few small scattered interstitial infiltrates in the right lung. Mushtaq Hernandez MD . Procedures * Intubation/mechanical ventilation * PICC line placement * Chest tube placement * Central line placement . . Assessment and Plan Disease Oriented Problem List: (1) Respiratory failure (2) COPD (chronic obstructive pulmonary disease) Comment: Underlying COPD was mild . She is a intermediate smoker but had not had hospitalizations for respiratory illness and was not on COPD meds. . (3) Sepsis Comment: Had initially been improving, but now with evidence that septic shock is recurring. . (4) UTI (urinary tract infection) Comment: Cx grew out E coli on 09/02/16. . (5) Altered mental status (6) Pneumothorax Comment: Chest tube in place. Resolving. . (7) Humerus fracture Comment: Non-operative management recommended by ortho. . (8) Renal cell cancer Comment: Resolved many years ago. . (9) Hypertension (10) Anemia Symptom Scale: (1) Pain 0-10 Scale: Unable to quantify Comment: Patient is intubated and nonverbal. She is unable to locate, quantify , qualify her pain. Family reports that her main pain syndrome is from her fractured arm. This pain will be quite severe particularly with movement. Family reports there were no pain syndromes prior to her fall. Here in the intensive care unit, other sources of pain could include the following: Prolonged bedbound status; urethral catheterization; vascular catheterizations; orotracheal intubation. . (2) Dyspnea 0-10 Scale: Unable to quantify Comment: Patient is currently intubated and mechanically ventilated. She is tolerating CPAP most of day today. . . Pertinent Non-Medical Issues Psychosocial: Good psychosocial support from her 3 local children. Spiritual: Patient is [employer]. Family reports restorationist is an important part of her life. Per family request we will have a cover stripper visit. Legal: The patient has a living will and a hard copy is on the chart. The designated health care surrogate is her sonGary. Ethical issues impacting care: The patient is currently incapacitated to make her own health care decisions. It is unclear if she will be able to regain such capacity. . Important Contacts * Jack Queen (son and the health care surrogate) * Flor Crouch (daughter) [phone] . Prognosis Ms Queen is 81 years old and is a current smoker but, per family, had been doing reasonably well in terms of her functional status. She used a walker to ambulate but was able to take care of all her ADLs. She was very hard of hearing and otherwise was cognitively sharp. She had a very sudden decline since experiencing a fall in which she fractured her right humerus. It is felt that her initial altered mental status might have been due to a combination of her illness and tramadol usage. At this point, her encephalopathy is probably multifactorial. New ? of seizure activity noted on EEG of 10/23. CT imaging of the chest showed small infiltrates so her pulmonary status is probably pneumonia on chronic mild COPD. She also had a right pneumothorax requiring a chest tube. CXR of 09/08/16 shows developing infiltrate and she became hypotensive again requiring norepinephrine in the early AM 09/09/16. Her urinary tract infection is probably resolved by now. Family reports a 50-60 pound weight loss over the last years -- an occult malignancy is certainly a possibility. Though patient's history does not indicate an underlying terminal illness, for whatever reason , she has not been able to improve in spite of aggressive care. It has become clear that she will need a tracheostomy if aggressive care is the goal and it is also clear that should she survive, she would be debilitated and dependent. . . Code Status: No Code Plan == CODE STATUS: Patient is now made DNR in preparation for withdrawal of life support. == Decision-making: The patient is incapacitated to make her own health care decisions and it does not appear that she will regain such capacity in the future. Her son, Jack, is the designated health care surrogate. He visits regularly, has a good understanding of the patient's illness, and has accepted the role of health care surrogate. Though he is the listed surrogate, he is in close communication with his 2 sisterKyle and Eleonora -- and includes them in the decision-making process. The other sibling, Zaid, is estranged from the family and there is no contact information. == Goals of medical treatment: The family has spoken with each other. A sister has flown in from [place]. Family has met with me and Dr. Laird today. All are in agreement that patient's wishes would be best be honored at this time by withdrawing life support and transitioning to "comfort measures only." == Pain: Multiple possible sources of pain are noted above. Patient has been on fentanyl for sedation and pain control. It appears to work. == Dyspnea: Patient's pneumothorax is resolving with chest tube placement. She has apparent pneumonia on top of some underlying mild COPD. Medical weaning was looking feasible until EEG suggested seizures and the recurrence of shock on the AM of 09/09/16. == Encephalopathy: As noted above this is likely multifactorial. Some of the agitation when off sedation could conceivably be secondary to her IV steroids. As noted above, opiate usage itself may have caused some delirium and altered mental status. Her EEG suggests seizure activity may be a factor. Patient now on levitiracetam. == Met with family including health care surrogate as noted above confirming the decision with withdraw life support, forego further aggressive care, and transition to "comfort measures only. " Anticipatory guidance provided to family regarding withdrawal. Questions answered. Withdrawal orders and post withdrawal comfort orders written. .. Time Spent Total Floor Time (mins): 60 (Total time included chart review; patient exam; two discussions with family noted above; discussion with Dr Laird; collaboration with primary nurse; writing orders.) Face to Face Time (mins): 15 >50% Counseling/Coord of Care: Yes Attestation To help prompt me to consider important information that might be impacting today's encounter and assessment, information from prior notes written by myself or my colleagues may have been "brought forward" into today's note. My signature on this note, however, is an attestation that I personally performed the exam, history, and/or decision-making noted today, and, unless otherwise indicated, the interactions with patient, family, and staff as well as the review of records all occurred today. I also attest that the listed assessment and stated plan reflect my best clinical judgment today based on the combination of historical information, prior notes, and today's exam/ interactions. When time spent is documented, it refers only to time spent today by the signer, or if indicated, combined time spent today by collaborating physician/nurse practitioner. . Kranthi Coon MD Sep 10, 2016 19:36
[2016-09-11] VITALS: PULSE 83
[2016-09-11 02:00] VITALS: PULSE 87
[2016-09-11 04:00] VITALS: PULSE 91
[2016-09-11] MEDS: CHLORHEXIDINE GLUCONATE 2 % 1 PACK (2 CLOTHS) TOP SCH (04:00)
[2016-09-11 06:00] VITALS: PULSE 96
[2016-09-11 07:15] VITALS: PULSE 100; RESP 15; TEMP 97; O2SAT 73
[2016-09-11] MEDS: CHLORHEXIDINE 0.12% (ORAL KIT) 15 ML CUP MT SCH (08:00)
[2016-09-11] MEDS: methylPREDNISolone SOD SUCC 40 MG/1 ML VIAL IV PUSH SCH (08:08)
[2016-09-11] MEDS: levETIRAcetam 1000 MG INJ 100 ML IV SCH (08:08)
--- NOTE | 2016-09-11 10:41 | HHI.HCPN ---
Reason for visit a. To assist with evaluation and management of symptoms including: pain; dyspnea; encephalopathy b. To assist medical decision maker(s) with: better understanding of current medical conditions; weighing benefits/burdens of medical treatment options; making medical treatment decisions. . (FLORENTINO RYAN) Subjective/Interval History Patient seen and examined in ICU. Discussed with nurse, Francine. Son and DIL at bedside. Patient is unresponsive. Appears comfortable. No obvious pain during my visit, remains on Fentanyl drip at 150mcg. Respirations are shallow. HR 100. Prior to withdrawal of life support patient became agitated with attempts to wean fentanyl. No PRN meds given overnight. . . Family/friend interactions Spoke with sonJack ([facility]) at bedside. He requests BP check 98/50 (map 67). Spoke with family about possible transition to hospice support and care center placement. Family will consider and let nurse know if they make a decision. Family understands pt may need to be moved from ICU to medical floor or hospice likely today. After I left the room, Francine tells me the family "just realized" we are not feeding the patient. She explained again transition to comfort measures, pt unable to eat, would require artificial feedings via NG or PEG tube. He did not voice further concerns. Advised nurse to call if family continues to questions need for feeding. She agrees. . (FLORENTINO RYAN) Advance Directives Living Will: Copy in medical record Health Care Surrogate: Copy in medical record Durable Power of Forensic Scientist: Never completed (FLORENTINO RYAN) Advance Directive Specifics Date completed: The living will document which includes information regarding health care surrogate designation was completed on 03/12/1999 . Health Care Surrogate(s): The patient has designated her son, Jack Queen, as health care surrogate. . Documented care wishes: The patient has completed a fairly standard [place] living will. It indicates she would not want life prolonging measures should she have a terminal condition , end-stage condition, or persistent vegetative state. She would also not want to have artificial nutrition/hydration in such cases. . Significant change in goals: NO CODE. Comfort measures family considering hospice referral. . (FLORENTINO RYAN) Objective Vital Signs Date Time Temp Pulse Resp B/P Pulse Ox O2 Delivery O2 Flow Rate FiO2 09/11/16 06:00 96 09/11/16 04:00 91 09/11/16 02:00 87 09/11/16 00:00 83 09/10/16 22:00 82 09/10/16 20:00 74 09/10/16 19:15 80 14 83 09/10/16 18:00 97 09/10/16 16:00 40 09/10/16 16:00 79 09/10/16 16:00 97.1 79 20 124/60 99 09/10/16 14:00 71 09/10/16 12:00 40 09/10/16 12:00 97.3 100 20 105/52 99 09/10/16 12:00 100 09/10/16 11:49 100 40 Intake & Output 09/11/16 09/11/16 07:00 19:00 Intake Total 313 ml Output Total 1100 ml Balance -787 ml Intake IV Total 313 ml Output Urine Total 1100 ml # Bowel Movements 0 Physical Exam CONSTITUTIONAL/GENERAL: This is an adequately nourished frail appearing patient. SKIN: No jaundice, rashes. Ecchymoses on right side of face and right upper extremity.. No wounds seen anteriorly. Skin temperature appropriate. Not diaphoretic. CARDIOVASCULAR: Regular rate and rhythm without murmurs, gallops, or rubs. RESPIRATORY/CHEST: Symmetric, unlabored respirations. Breath sounds equal bilaterally but diminished. Lungs clear. Chest tube on the right. GASTROINTESTINAL: Abdomen soft, non-tender, nondistended. No guarding. Bowel sounds hypoactive. GENITOURINARY: Without palpable bladder distension. Morse catheter in place. MUSCULOSKELETAL: Extremities without clubbing, cyanosis. There is edema in both arms right greater than left. NEUROLOGICAL: Unresponsive. PSYCHIATRIC: Unresponsive. . (FLORENTINO RYAN-Jewels) Diagnostic Tests Laboratory Laboratory Tests Test 09/09/16 09/09/16 09/09/16 04:08 10:05 19:38 White Blood Count 20.9 TH/MM3 21.9 TH/MM3 (4.0-11.0) (4.0-11.0) Red Blood Count 3.78 MIL/MM3 3.59 MIL/MM3 (4.00-5.30) (4.00-5.30) Hemoglobin 11.0 GM/DL 10.5 GM/DL (11.6-15.3) (11.6-15.3) Hematocrit 32.8 % 31.4 % (35.0-46.0) (35.0-46.0) Mean Corpuscular Volume 86.9 FL 87.4 FL (80.0-100.0) (80.0-100.0) Mean Corpuscular Hemoglobin 29.1 PG 29.3 PG (27.0-34.0) (27.0-34.0) Mean Corpuscular Hemoglobin 33.5 % 33.6 % Concent (32.0-36.0) (32.0-36.0) Red Cell Distribution Width 15.1 % 15.3 % (11.6-17.2) (11.6-17.2) Platelet Count 384 TH/MM3 380 TH/MM3 (150-450) (150-450) Mean Platelet Volume 7.1 FL 7.1 FL (7.0-11.0) (7.0-11.0) Neutrophils (%) (Auto) 87.2 % (16.0-70.0) Lymphocytes (%) (Auto) 8.2 % (9.0-44.0) Monocytes (%) (Auto) 4.1 % (0.0-8.0) Eosinophils (%) (Auto) 0.1 % (0.0-4.0) Basophils (%) (Auto) 0.4 % (0.0-2.0) Neutrophils # (Auto) 18.3 TH/MM3 (1.8-7.7) Lymphocytes # (Auto) 1.7 TH/MM3 (1.0-4.8) Monocytes # (Auto) 0.9 TH/MM3 (0-0.9) Eosinophils # (Auto) 0.0 TH/MM3 (0-0.4) Basophils # (Auto) 0.1 TH/MM3 (0-0.2) CBC Comment AUTO DIFF Differential Total Cells 100 Counted Neutrophils % (Manual) 83 % (16-70) Band Neutrophils % 2 % (0-6) Lymphocytes % 9 % (9-44) Monocytes % 4 % (0-8) Neutrophils # (Manual) 18.2 TH/MM3 (1.8-7.7) Metamyelocytes 1 % (0-1) Myelocytes 1 % (0-0) Nucleated Red Blood Cells 1 /100 WBC (0-0) Differential Comment FINAL DIFF MANUAL Platelet Estimate NORMAL (NORMAL) Platelet Morphology Comment NORMAL (NORMAL) Red Cell Morphology Comment NORMAL (NORMAL) Sodium Level 141 MEQ/L 140 MEQ/L (136-145) (136-145) Potassium Level 4.1 MEQ/L 3.7 MEQ/L (3.5-5.1) (3.5-5.1) Chloride Level 105 MEQ/L 104 MEQ/L (98-107) (98-107) Carbon Dioxide Level 26.4 MEQ/L 26.0 MEQ/L (21.0-32.0) (21.0-32.0) Anion Gap 10 MEQ/L (5-15) 10 MEQ/L (5-15) Blood Urea Nitrogen 33 MG/DL (7-18) 31 MG/DL (7-18) Creatinine 1.11 MG/DL 0.96 MG/DL (0.50-1.00) (0.50-1.00) Estimat Glomerular Filtration 47 ML/MIN (>89) 56 ML/MIN (>89) Rate Random Glucose 117 MG/DL 123 MG/DL (74-106) (74-106) Calcium Level 8.4 MG/DL 7.8 MG/DL (8.5-10.1) (8.5-10.1) Lactic Acid Level 1.2 mmol/L (0.4-2.0) Total Bilirubin 0.7 MG/DL (0.2-1.0) Aspartate Amino Transf 49 U/L (15-37) (AST/SGOT) Alanine Aminotransferase 171 U/L (10-53) (ALT/SGPT) Alkaline Phosphatase 64 U/L (45-117) Total Creatine Kinase 324 U/L 343 U/L (26-192) (26-192) Creatine Kinase MB 3.0 NG/ML 2.8 NG/ML (0.5-3.6) (0.5-3.6) Creatine Kinase MB % 0.9 % (0.0-4.0) 0.8 % (0.0-4.0) Troponin I 0.26 NG/ML 0.27 NG/ML (0.02-0.05) (0.02-0.05) Total Protein 5.2 GM/DL (6.4-8.2) Albumin 2.0 GM/DL (3.4-5.0) (FLORENTINO RYAN-Jewels) Result Diagram: 09/09/16 1005 09/09/16 1005 Microbiology Microbiology Date/Time Procedure Status Source Growth 09/08/16 08:40 Gram Stain - Final Complete Sputum Endotracheal 09/08/16 08:40 Sputum Culture - Final Complete Sputum Endotracheal HEAVY GROWTH NORMAL RESPIRATORY TYSHAWN . Imaging Last Impressions Chest X-Ray 09/09/16 0000 Signed Impressions: Service Date/Time: Friday, September 09, 2016 03:25 - CONCLUSION: No change with persistent tiny apical pneumothorax on the right. Bibasilar consolidation. Scottie Miller Jr., MD Brain MRI 09/07/16 0000 Signed Impressions: Service Date/Time: Wednesday, September 07, 2016 13:58 - CONCLUSION: Moderate atrophy and white matter disease. Efrain South MD Shoulder X-Ray 09/03/16 0000 Signed Impressions: Service Date/Time: August 12:40 - CONCLUSION: There is a displaced fracture through the neck of the proximal humerus. The humeral head is either subluxed or displaced posteriorly. If clinically indicated, a noncontrast CT scan of the right shoulder could be performed for further evaluation. Mushtaq Hernandez MD Head CT 09/02/16 0959 Signed Impressions: Service Date/Time: Friday, September 02, 2016 12:01 - CONCLUSION: 1. No focal or acute intracranial hemorrhage. 2. Bilateral cortical atrophy and chronic white matter changes. 3. Chronic sinus disease. Mushtaq Hernandez MD Humerus X-Ray 09/02/16 0000 Signed Impressions: Service Date/Time: Friday, September 02, 2016 12:25 - CONCLUSION: Fracture subcapital and humeral head. Richie Mtz MD Elbow X-Ray 09/02/16 0000 Signed Impressions: Service Date/Time: Friday, September 02, 2016 12:29 - CONCLUSION: No acute bony injury Richie Mtz MD CT Angiography 09/02/16 0000 Signed Impressions: Service Date/Time: Friday, September 02, 2016 12:01 - CONCLUSION: 1. No evidence of PE. 2. Hyperaeration of the lung miller suggestive of COPD. 3. A few small scattered interstitial infiltrates in the right lung. Mushtaq Hernandez MD . Procedures * Intubation/mechanical ventilation * PICC line placement * Chest tube placement * Central line placement . . (FLORENTINO RYAN) Assessment and Plan Disease Oriented Problem List: (1) Respiratory failure (2) COPD (chronic obstructive pulmonary disease) Comment: Underlying COPD was mild . She is a snf smoker but had not had hospitalizations for respiratory illness and was not on COPD meds. . (3) Sepsis Comment: Had initially been improving, but now with evidence that septic shock is recurring. . (4) UTI (urinary tract infection) Comment: Cx grew out E coli on 09/02/16. . (5) Altered mental status (6) Pneumothorax Comment: Chest tube in place. Resolving. . (7) Humerus fracture Comment: Non-operative management recommended by ortho. . (8) Renal cell cancer Comment: Resolved many years ago. . (9) Hypertension (10) Anemia Symptom Scale: (1) Pain 0-10 Scale: Unable to quantify Comment: Patient is intubated and nonverbal. She is unable to locate, quantify , qualify her pain. Family reports that her main pain syndrome is from her fractured arm. This pain will be quite severe particularly with movement. Family reports there were no pain syndromes prior to her fall. Here in the intensive care unit, other sources of pain could include the following: Prolonged bedbound status; urethral catheterization; vascular catheterizations; orotracheal intubation. . (2) Dyspnea 0-10 Scale: Unable to quantify Comment: Patient is currently intubated and mechanically ventilated. She is tolerating CPAP most of day today. . . Pertinent Non-Medical Issues Psychosocial: Good psychosocial support from her 3 local children. Spiritual: Patient is Religious. Family reports methodist is an important part of her life. Per family request we will have a small animal veterinarian visit. Legal: The patient has a living will and a hard copy is on the chart. The designated health care surrogate is her sonGary. Ethical issues impacting care: The patient is currently incapacitated to make her own health care decisions. It is unclear if she will be able to regain such capacity. . Important Contacts * Jack Queen (son and the health care surrogate) * Flor Crouch (daughter) [phone] . Prognosis Ms Queen is 81 years old and is a current smoker but, per family, had been doing reasonably well in terms of her functional status. She used a walker to ambulate but was able to take care of all her ADLs. She was very hard of hearing and otherwise was cognitively sharp. She had a very sudden decline since experiencing a fall in which she fractured her right humerus. It is felt that her initial altered mental status might have been due to a combination of her illness and tramadol usage. At this point, her encephalopathy is probably multifactorial. New ? of seizure activity noted on EEG of 10/23. CT imaging of the chest showed small infiltrates so her pulmonary status is probably pneumonia on chronic mild COPD. She also had a right pneumothorax requiring a chest tube. CXR of 09/08/16 shows developing infiltrate and she became hypotensive again requiring norepinephrine in the early AM 09/09/16. Her urinary tract infection is probably resolved by now. Family reports a 50-60 pound weight loss over the last years -- an occult malignancy is certainly a possibility. Though patient's history does not indicate an underlying terminal illness, for whatever reason , she has not been able to improve in spite of aggressive care. It has become clear that she will need a tracheostomy if aggressive care is the goal and it is also clear that should she survive, she would be debilitated and dependent. . . Code Status: No Code Plan * NO CODE * Decision-making: The patient is incapacitated to make her own health care decisions and it does not appear that she will regain such capacity in the future. Her son, Jack, is the designated health care surrogate. He visits regularly, has a good understanding of the patient's illness, and has accepted the role of health care surrogate. Though he is the listed surrogate, he is in close communication with his 2 sisterKyle and Eleonroa -- and includes them in the decision-making process. The other sibling, Zaid, is estranged from the family and there is no contact information. * Goals of medical treatment: Family elected based on patient's wishes to withdrawal of life support and transitioning to "comfort measures only." Considering hospice, will notify nurse if they want to meet with hospice. Considering [facility]. * Call from nurse to report family desires hospice consult and transfer to [facility] when arrangements complete. Hospice consulted. * Pain: Multiple possible sources of pain are noted above. Patient has been on fentanyl for sedation and pain control. It appears to work. * Dyspnea: Comfortable on room air. * Encephalopathy: As noted above this is likely multifactorial. Some of the agitation when off sedation could conceivably be secondary to her IV steroids. As noted above, opiate usage itself may have caused some delirium and altered mental status. Her EEG suggests seizure activity may be a factor. Patient now on levitiracetam. * Palliative care will continue to follow. . (FLORENTINO RYAN) Attestation To help prompt me to consider important information that might be impacting today's encounter and assessment, information from prior notes written by myself or my colleagues may have been "brought forward" into today's note. My signature on this note, however, is an attestation that I personally performed the exam, history, and/or decision-making noted today, and, unless otherwise indicated, the interactions with patient, family, and staff as well as the review of records all occurred today. I also attest that the listed assessment and stated plan reflect my best clinical judgment today based on the combination of historical information, prior notes, and today's exam/ interactions. When time spent is documented, it refers only to time spent today by the signer, or if indicated, combined time spent today by collaborating physician/nurse practitioner. (FLORENTINO RYAN) Collaborating MD Comments Chart reviewed, patient examined personally by me. Case discussed with SHANNAN Saba. Above SHANNAN note reviewed and I concur. Patient has survived overnight post withdrawal of life support. She has appeared comfortable to nursing staff and to family who have been at bedside most of the night and day. She has required little prn medication above her fentanyl drip. BP is in the low 90's systolic off the norepinephrine. Patient will intermittently open eyes , but does not track. Unlabored respirations without use of accessory muscles. intermittent tachycardia. Extremities still warm. Spoke with Jack (health care surrogate) and other family members at bedside. They agree to hospice consult and want patient transferred to [facility]. We also discussed benefits / burdens of artificial nutrition / hydration. They have decided against such nutrition/ hydration. TIME : Combined physician MANAGER [employer]ODUCTION total time on floor well over 40 minutes with chart review, exam, collaboration with primary nurse, above referenced family discussions, and collaboration with hospice nurse. Over 50% of time spent on counseling / coordination of care. . (Kranthi Coon MD) FLORENTINO RYAN-Jewels Sep 11, 2016 10:41 Kranthi Coon MD Sep 11, 2016 15:56
[2016-09-11] MEDS: HYDROmorphone HCL PF 2 MG/ML VIAL IV PRN ×2 (12:07→16:11)
[2016-09-11] MEDS: fentaNYL DRIP 250 ML IV SCH (15:11)
--- NOTE | 2016-09-11 15:51 | HHI.DS ---
Discharge Summary Admission Date Sep 02, 2016 at 11:58 Admitting Diagnosis altered mental status, respiratory failure, sepsis, hypoxia (1) Sepsis ICD Code: A41.9 (2) UTI (urinary tract infection) ICD Code: N39.0 (3) Altered mental status ICD Code: R41.82 (4) Humerus fracture ICD Code: S42.309A (5) Respiratory failure ICD Code: J96.90 (6) COPD (chronic obstructive pulmonary disease) ICD Code: J44.9 (7) Pneumothorax ICD Code: J93.9 (8) Pain ICD Code: R52 (9) Anemia ICD Code: D64.9 (10) Hypertension ICD Code: I10 CBC/BMP: 09/09/16 1005 09/09/16 1005 Significant Findings Laboratory Tests Test 09/09/16 09/09/16 09/09/16 04:08 10:05 19:38 White Blood Count 20.9 TH/MM3 21.9 TH/MM3 (4.0-11.0) (4.0-11.0) Red Blood Count 3.78 MIL/MM3 3.59 MIL/MM3 (4.00-5.30) (4.00-5.30) Hemoglobin 11.0 GM/DL 10.5 GM/DL (11.6-15.3) (11.6-15.3) Hematocrit 32.8 % 31.4 % (35.0-46.0) (35.0-46.0) Neutrophils (%) (Auto) 87.2 % (16.0-70.0) Lymphocytes (%) (Auto) 8.2 % (9.0-44.0) Neutrophils # (Auto) 18.3 TH/MM3 (1.8-7.7) Neutrophils % (Manual) 83 % (16-70) Neutrophils # (Manual) 18.2 TH/MM3 (1.8-7.7) Myelocytes 1 % (0-0) Nucleated Red Blood Cells 1 /100 WBC (0-0) Blood Urea Nitrogen 33 MG/DL (7-18) 31 MG/DL (7-18) Creatinine 1.11 MG/DL (0.50-1.00) Estimat Glomerular Filtration 47 ML/MIN (>89) 56 ML/MIN (>89) Rate Random Glucose 117 MG/DL 123 MG/DL (74-106) (74-106) Calcium Level 8.4 MG/DL 7.8 MG/DL (8.5-10.1) (8.5-10.1) Aspartate Amino Transf 49 U/L (15-37) (AST/SGOT) Alanine Aminotransferase 171 U/L (10-53) (ALT/SGPT) Total Creatine Kinase 324 U/L 343 U/L (26-192) (26-192) Troponin I 0.26 NG/ML 0.27 NG/ML (0.02-0.05) (0.02-0.05) Total Protein 5.2 GM/DL (6.4-8.2) Albumin 2.0 GM/DL (3.4-5.0) Imaging Last Impressions Chest X-Ray 09/09/16 0000 Signed Impressions: Service Date/Time: Friday, September 09, 2016 03:25 - CONCLUSION: No change with persistent tiny apical pneumothorax on the right. Bibasilar consolidation. Scottie Miller Jr., MD Brain MRI 09/07/16 0000 Signed Impressions: Service Date/Time: Wednesday, September 07, 2016 13:58 - CONCLUSION: Moderate atrophy and white matter disease. Efrain South MD Shoulder X-Ray 09/03/16 0000 Signed Impressions: Service Date/Time: August 12:40 - CONCLUSION: There is a displaced fracture through the neck of the proximal humerus. The humeral head is either subluxed or displaced posteriorly. If clinically indicated, a noncontrast CT scan of the right shoulder could be performed for further evaluation. Mushtaq Hernandez MD Head CT 09/02/16 0959 Signed Impressions: Service Date/Time: Friday, September 02, 2016 12:01 - CONCLUSION: 1. No focal or acute intracranial hemorrhage. 2. Bilateral cortical atrophy and chronic white matter changes. 3. Chronic sinus disease. Mushtaq Hernandez MD Humerus X-Ray 09/02/16 0000 Signed Impressions: Service Date/Time: Friday, September 02, 2016 12:25 - CONCLUSION: Fracture subcapital and humeral head. Richie Mtz MD Elbow X-Ray 09/02/16 0000 Signed Impressions: Service Date/Time: Friday, September 02, 2016 12:29 - CONCLUSION: No acute bony injury Richie Mtz MD CT Angiography 09/02/16 0000 Signed Impressions: Service Date/Time: Friday, September 02, 2016 12:01 - CONCLUSION: 1. No evidence of PE. 2. Hyperaeration of the lung miller suggestive of COPD. 3. A few small scattered interstitial infiltrates in the right lung. Mushtaq Hernandez MD PE at Discharge Resting comfortably, encephalopathic. Hospital Course The patient is an 81-year-old female with a past medical history of COPD, active smoker, hypertension and hypothyroidism. She presented to [facility] ED with her family for altered mental status and respiratory distress. According to the patient's daughter she fell last Wednesday and broke her right arm. She was taken to [facility] ED and was found to have a right humerus fracture. She was discharged home with an arm sling and advised to follow-up with an orthopedic surgeon. In addition the patient was taking tramadol one tablet every four hours as needed for pain for the past three days. The patient has been combative and agitated at home according to the daughter and when she arrived to the ED she was found to have an O2 saturation in the 80s on room in triage. She was intubated and placed on full mechanical ventilation. The patient was given etomidate and succinylcholine for intubation. A chest x-ray post intubation showed ET tube above the christianne, hyperaeration of both lungs with no acute pulmonary infiltrates. She also underwent a CT angiogram of the chest which showed no evidence of PE, however, it showed a few small scattered interstitial infiltrates in the right lung. The patient also had CT scan of the brain which showed no focal or acute intracranial hemorrhage. She received 2 liters of crystalloids in the ED in addition to vancomycin and Zosyn. Her laboratory data is significant for leukocytosis with a WBC of 14.1, however, the patient is afebrile. Lactic acid measured at 1.4 and her urinalysis was compatible with a UTI. She had 59 wbc's with moderate bacteria, positive nitrite and small leukocyte esterase. X-ray of her right humerus showed a subcapital and humeral head fracture. When seen the patient is sedated with Diprivan and on full mechanical ventilation. Current blood pressure is 119 /54 with a pulse of 59. ABG post intubation showed a pH of 7.33, CO2 39, PAO2 442, bicarb 20, saturation 96% on assist control ventilation with a respiratory rate of 18, tidal volume 500, PEEP of 5, FIO2 100%. 09/03 No acute events overnight. Sedated with Fentanyl and intubated. 09/04 Patient remains sedated with Fentanyl and intubated. ABG showed mild resp acidosis on CPAP trials yesterday. 09/05 Patient is sedated with Diprivan, Fentanyl and intubated. On Levophed [address]. Afebrile. 09/06 Patient remains sedated with Fentanyl and intubated. Afebrile. 09/07 No acute events overnight. Sedated and intubated. Afebrile. For MRI brain and EEG today per neurology. 09/08 Patient is sedated with Fentanyl and intubated. Had air leak in CT when repositioned, CXR from early this morning showed stable tint right apical PTX. MRI brain from yesterday showed atrophy. 09/09: Patient remains sedated, orally intubated on mechanical ventilation. Became hypotensive this morning for which receiving fluid bolus and started on Levophed for pressor support. 09/10: Remains sedated, arousable, orally intubated on mechanical ventilation. On Levophed which is being titrated down. Failed C Pap trial yesterday. Family decided to proceed with comfort measures only and all aggressive measures stopped, Terminal wean performed and patient was extubated. Ativan/ morphine when necessary. Palliative Care team following. 09/11: Appears comfortable. Hospice consulted. Patient being transferred to hospice facility. Assessment: 1. Acute respiratory failure 2. Encephalopathy 3. Urinary tract infection. 4. Leukocytosis. 5. Right humerus fracture. 6. Status post fall. 7. Hypothyroidism. 8. COPD. 9. hypotension- suspect sepsis 10 Right sided PTX s/p Chest tube placement on 09/04 Pt Condition on Discharge: Guarded Discharge Disposition: Hospice/Med Facility Discharge Instructions DIET: Follow Instructions for: As Tolerated, No Restrictions Activities you can perform: Continue Bedrest Edin Laird MD Sep 11, 2016 15:51
== END 2016-09-11 16:45 | DRG 870 ==
LOC: NEPC 09:38 → NEDA 11:58 → HIME 19:00
PROVIDERS: ADMIT Internal Medicine Critical Care Medicine; ATTEND Internal Medicine Critical Care Medicine
PROC: 5A1955Z Respiratory Ventilation, Greater than 96 Consecutive Hours (ICD-10-PCS; 2016-09-02)
PROC: 0BH17EZ Insertion of Endotracheal Airway into Trachea, Via Natural or Artificial Opening (ICD-10-PCS; 2016-09-02)
PROC: 0W9930Z Drainage of Right Pleural Cavity with Drainage Device, Percutaneous Approach (ICD-10-PCS; 2016-09-04)
PROC: 02HV33Z Insertion of Infusion Device into Superior Vena Cava, Percutaneous Approach (ICD-10-PCS; principal; 2016-09-05)
DX: A41.9 Sepsis, unspecified organism (principal); J96.01 Acute respiratory failure with hypoxia; R65.21 Severe sepsis with septic shock; J18.9 Pneumonia, unspecified organism; J44.0 Chronic obstructive pulmonary disease with (acute) lower respiratory infection; R56.9 Unspecified convulsions; G93.40 Encephalopathy, unspecified; E87.2 Acidosis; N39.0 Urinary tract infection, site not specified; J93.82 Other air leak; J93.9 Pneumothorax, unspecified; S42.211A Unspecified displaced fracture of surgical neck of right humerus, initial encounter for closed fracture; I10 Essential (primary) hypertension; D64.9 Anemia, unspecified; E03.9 Hypothyroidism, unspecified; E78.5 Hyperlipidemia, unspecified; F17.200 Nicotine dependence, unspecified, uncomplicated; H91.90 Unspecified hearing loss, unspecified ear; I44.0 Atrioventricular block, first degree; N81.9 Female genital prolapse, unspecified; W19.XXXA Unspecified fall, initial encounter; Y92.9 Unspecified place or not applicable; Z51.5 Encounter for palliative care; Z66 Do not resuscitate; Z74.01 Bed confinement status; Z85.528 Personal history of other malignant neoplasm of kidney; Z90.710 Acquired absence of both cervix and uterus
CPT/HCPCS: 31500; 32551; 36556; 36569; 36600; 51702; 70450; 70551; 71010; 71275; 73030; 73060; 73070; 76937; 80048; 80053; 80301; 80320; 81001; 82140; 82435; 82550; 82552; 82805; 82947; 82948; 83605; 83735; 84100; 84132; 84155; 84295; 84443; 84484; 84520; 85007; 85025; 85027; 85610; 87040; 87070; 87077; 87086; 87186; 87205; 87641; 93005; 94002; 94003; 94640; 95819; 96365; 96368; C9113; G0479; J0330; J0610; J1170; J1630; J1953; J1980; J2060; J2250; J2543; J2920; J3010; J3370; J3480; J7030; J7042; J7050; Q9967